=== PATIENT | male | born 1950 | race Caucasian/White ===

== ENCOUNTER → 2018-06-24 12:34 | Outpatient (CLI) | payer SELFPAY ==
--- NOTE | 2018-06-24 12:39 | CT_ITS ---
STUDY: CT CHEST WITHOUT CONTRAST REASON FOR EXAM: Male, 68 years old. Hypercholesterolemia. Calcium scoring examination over read. RADIATION DOSAGE (If Supplied By Facility): CTDIvol = ( 12.19 ) mGy, DLP = ( 511.97 ) mGycm TECHNIQUE: Transaxial imaging was performed without the administration of intravenous contrast material. Individualized dose optimization techniques were used for this CT. COMPARISON: None. FINDINGS: Focal area of increased markings in the lateral aspect of the left lower lobe with focal calcification. This most likely represents fibrocalcific scarring. There is no demonstrated pleural abnormality. There are calcifications of the coronary arteries. There are multiple small lymph nodes within the mediastinum, which are normal in size and morphology most compatible with reactive lymph hyperplasia. Calcified subcarinal and right hilar lymph nodes. Normal unenhanced pulmonary arteries. Normal aorta arch and descending thoracic aorta. Normal osseous structures. Moderate sized hiatal hernia. A filter is seen within the inferior vena cava. Cholelithiasis. Hyperplasia of the adrenal glands. CT/Limited Chest CT w/CCTA IMPRESSION: Coronary artery calcification. Findings suggestive of scarring in the lateral aspect of the left lower lobe. Electronically Signed: Khang Patel MD at 9:50 EST Tel [phone], Service support ,
[2018-06-24 12:59] VITALS: BP 124/64; PULSE 65; RESP 18; O2SAT 988; BMI 26.8
[2018-06-24 13:20] VITALS: PULSE 75
[2018-06-24] MEDS: Metoprolol Tartrate 5 MG/5 ML Vial IV (13:20)
[2018-06-24 13:25] VITALS: PULSE 69; RESP 18; O2SAT 99
[2018-06-24 13:51] VITALS: BP 124/64; PULSE 65; RESP 18; O2SAT 95
--- NOTE | 2018-06-25 06:43 | CA.SCORE ---
Calcium Scoring Date of Study:: 06/24/18 Coronary Calcium Scoring: Coronary calcium scoring. High-resolution computed tomographic imaging of the chest was performed on 06/24/2018 with particular attention paid to the coronary arteries. Images from the examination were analyzed for the presence and extent of coronary artery calcification, using the coronary calcification quantification software. The patient tolerated the procedure well and there were no complications. The results of the coronary calcification analysis are provided below. Coronary calcium score. Left main score 214. Left anterior descending artery score 291. Left circumflex artery score 0. Right coronary artery score 1932. Total Agagston score 2437. The above percentile ranking is greater than 90% of people of the same gender and similar age. The above is suggestive of extensive plaque burden and a high likelihood of at least one coronary artery of the more than 50% stenosis.
== END ==
PROVIDERS: Family Provider Internal Medicine; PCP Internal Medicine; Referring Provider Internal Medicine; Visit Provider Internal Medicine
DX: E78.00 Pure hypercholesterolemia, unspecified (principal)
CPT/HCPCS: 75571; 76380

== ENCOUNTER → 2018-07-29 06:44 | Outpatient (CLI) | payer BC, SELFPAY ==
[2018-07-08 08:38] VITALS: BMI 27.6
--- NOTE | 2018-07-29 06:46 | ECHOD_ITS ---
Reason For Study: CAD Procedure This was a 2D Doppler, Color Flow transthoracic echocardiogram. Exam performed in department. Left Ventricle Normal LV size. Left ventricular systolic function is normal. The estimated ejection fraction is 60 %. Stage 1 diastolic dysfunction. No regional wall motion abnormalities noted. Right Ventricle Normal RV size. Normal systolic function. Atria Normal left atrium. Normal right atrium. Mitral Valve Normal mitral valve. Tricuspid Valve Normal tricuspid valve. Mild tricuspid valve insufficiency. Pulmonary artery systolic pressure is 27 mmHg. Aortic Valve Normal aortic valve. Trisinus/trileaflet aortic valve. Pulmonic Valve Normal pulmonic valve. Great Vessels Normal aortic root. The pulmonary artery is normal size. Normal inferior vena cava. Pericardium/Pleural No pericardial effusion. MMode/2D Measurements & Calculations LVIDd: 4.5 cm IVSd: 1.1 cm LVOT diam: 2.4 cm LVIDs: 2.9 cm LVPWd: 1.1 cm LVOT area: 4.6 cm2 RVDd: 3.9 cm FS: 36.2 % Ao root diam: 3.8 cm LAV(MOD-bp): 57.8 ml EDV(MOD-sp4): 105.5 ml LAV(MOD-bp) Indexed: 27.0 ml/m2 ESV(MOD-sp4): 46.1 ml LAV(MOD-sp2): 39.9 ml EF(MOD-sp4): 56.3 % LAV(MOD-sp4): 74.6 ml EDV(MOD-sp2): 92.3 ml SV(MOD-sp4): 59.4 ml SV(MOD-sp2): 46.2 ml EF(MOD-sp2): 50.1 % LA A4 area: 23.2 cm2 LA dimension(2D): 4.3 cm RA A4 area: 19.6 cm2 Doppler Measurements & Calculations MV E max yg: 64.7 cm/sec Lat Peak E' Yg: 7.6 cm/sec Med Peak E' Yg: 5.6 cm/sec MV A max yg: 97.0 cm/sec E/E' lat: 8.6 E/E' med: 11.6 MV E/A: 0.67 Ao V2 max: 152.5 cm/sec LV V1 max: 113.4 cm/sec PA V2 max: 121.2 cm/sec Ao max P.3 mmHg LV V1 max P.1 mmHg MEHNAZ(V,D): 3.4 cm2 TR max yg: 242.5 cm/sec TR max P.5 mmHg Interpretation Summary Normal LV size. Left ventricular systolic function is normal. The estimated ejection fraction is 60 %. Stage 1 diastolic dysfunction. Mild tricuspid valve insufficiency. Ordering Physician: Rinku Mast Referring Physician: Radha Jolley D.O. Performed By: Funmilayo Farfan RDCS
--- NOTE | 2018-07-29 09:17 | STRESSREP ---
Stress Test Report Exercise myocardial perfusion stress test. 68-year-old man with a history of hypertension and previous pulmonary embolism. Medications: Lipitor, Toprol, amoxicillin, rivaroxaban. Stress protocol: Resting EKG demonstrates normal sinus rhythm with a rate of 70 bpm T wave inversions noted in lead III. Resting blood pressure 150/80 mmHg. The patient exercised according to regular [facility] protocol for a total duration of 6 minutes. The maximum heart rate attained was 153 bpm which was 102% of the maximum predicted heart rate the maximum workload was 7 metabolic equivalents. At rest there were T wave inversions noted in lead III. At peak exercise upsloping ST changes only were noted with normally the criteria for ischemia. The resting blood pressure was 146/68 peak blood pressure 158/62 rate pressure product was 22,700. No clinical angina was noted the patient was short of breath the test was terminated due to the same. Myocardial perfusion protocol. 14.1 mCi of technetium 99m sestamibi was injected at rest. The patient exercised according to regular [facility] protocol for 6 minutes at peak exercise 44.7 mCi of technetium 99m sestamibi was injected stress images were obtained stress and rest images were reconstructed and compared in the short axis vertical long horizontal long axis. Gated images were also obtained next Perfusion SPECT analysis: Review of the stress images demonstrate normal uptake of tracer noted in all areas of the myocardium. The resting images similarly demonstrate normal uptake of tracer noted in all areas of the myocardium. No areas of reversibility are noted suggest ischemia no previous infarct is noted. Gated SPECT analysis: The gated ejection fraction is noted to be 64%. Conclusion: Normal exercise myocardial perfusion stress test at a moderate workload. Preserved ejection fraction.
== END ==
PROVIDERS: Family Provider Internal Medicine; PCP Internal Medicine; Referring Provider Internal Medicine Cardiovascular Disease; Visit Provider Internal Medicine Cardiovascular Disease
DX: I25.10 Atherosclerotic heart disease of native coronary artery without angina pectoris (principal); I10 Essential (primary) hypertension; R93.1 Abnormal findings on diagnostic imaging of heart and coronary circulation
CPT/HCPCS: 78452; 93017; 93306; A9500; A4216

== ENCOUNTER 2018-08-07 08:26 | Day surgery (SDC) | payer BC, SELFPAY ==
[2018-07-08 08:38] VITALS: BMI 27.6
[2018-08-04 14:44] VITALS: BMI 27.6
--- NOTE | 2018-08-04 15:15 | RAD_ITS ---
STUDY: CT CHEST WITHOUT CONTRAST REASON FOR EXAM: Male, 68 years old. Hypercholesterolemia. Calcium scoring examination over read. RADIATION DOSAGE (If Supplied By Facility): CTDIvol = ( 12.19 ) mGy, DLP = ( 511.97 ) mGycm TECHNIQUE: Transaxial imaging was performed without the administration of intravenous contrast material. Individualized dose optimization techniques were used for this CT. COMPARISON: None. FINDINGS: Focal area of increased markings in the lateral aspect of the left lower lobe with focal calcification. This most likely represents fibrocalcific scarring. There is no demonstrated pleural abnormality. There are calcifications of the coronary arteries. There are multiple small lymph nodes within the mediastinum, which are normal in size and morphology most compatible with reactive lymph hyperplasia. Calcified subcarinal and right hilar lymph nodes. Normal unenhanced pulmonary arteries. Normal aorta arch and descending thoracic aorta. Normal osseous structures. Moderate sized hiatal hernia. A filter is seen within the inferior vena cava. Cholelithiasis. Hyperplasia of the adrenal glands. RAD/Chest PA and Lateral IMPRESSION: Coronary artery calcification. Findings suggestive of scarring in the lateral aspect of the left lower lobe. Electronically Signed: Khang Patel MD at 9:50 EST Tel [phone], Service support ,
[2018-08-04 17:03] LABS: Absolute Lymphocyte Count 1.73 X10^3/ul (0.83-4.51); Absolute Neutrophil Count 6.2 X10^3/uL (2.0-7.7); Basophil# 0.02 X10^3/uL; Basophil% 0.2 % (0-1); Eosinophil# 0.06 X10^3/uL; Eosinophils% 0.7 % (0-5); Hematocrit 44.1 % (40-54); Hemoglobin 14.7 g/dl (13.0-16.5); Lymphocyte # 1.73 X10^3/ul (4.0); Lymphocyte % 19.8 % (19-41); Mean Corp Hgb Conc 33.3 g/gl (32-36); Mean Corpuscular Hgb 30.2 pg (27.0-32.0); Mean Corpuscular Volume 90.6 fL (80-94); Mean Platelet Vol. 10.5 fl (6.2-12.0); Monocyte# 0.67 X10^3/uL; Monocyte% 7.7 % (0-10); Neutrophil # 6.23 X10^3/uL (2.7-7.7); Neutrophil % 71.1 % (47-70); Platelet Count 247 K/mm3 (150-450); RBC Distribution Width CV 12.9 % (11.6-14.6); RBC Distribution Width SD 42.3 fl (35.1-43.9); Red Blood Count 4.87 M/mm3 (4.6-6.2); White Blood Count 8.8 K/mm3 (4.4-11.0)
[2018-08-04 17:04] LABS: POSITIVE COUNT NO; POSITIVE DIFFERENTIAL NO; POSITIVE MORPHOLOGY NO
[2018-08-04 17:31] LABS: International Normalized Ratio 1.2; Prothrombin Time (Protime)PT. 14.9 SECONDS (11.7-14.9)
[2018-08-04 17:32] LABS: Partial Thromboplast Time 29.2 Seconds (24.1-36.2)
[2018-08-04 17:39] LABS: Anion Gap 9 (5-15); BUN 16 mg/dL (7-18); BUN/Creat Ratio 21.3 RATIO (10-20); Chloride 104 mmol/L (98-107); Creatinine, Serum 0.75 mg/dL (0.70-1.30); EST Glomerular Filtration Rate 109 mL/min (>60); Est Glom Filt Rate - Afr Amer 132 mL/min (>60); Glucose 87 mg/dL (74-106); Potassium 4.2 mmol/L (3.5-5.1); Sodium Level 138 mmol/L (136-145)
[2018-08-06 08:11] VITALS: BMI 27.6
--- NOTE | 2018-08-07 09:52 | CL.D_ITS ---
Patient Name: CYNTHIA ANN Study Date: 08/07/2018 Performing: Rinku Mast MD Ht: 72.04 inches 183 cm : 1950 Wt: 205.03 lbs 93 kg Age: 68 Gender: male BSA: 2.15 PROCEDURE(S) PERFORMED [id number]-YRQ/COR/LV CLINICAL PROFILE AND INDICATIONS Indications: Suspected CAD Heart Failure: None Stress/Imaging Coronary Calcium Score: Yes Calcium Score: 2000Calcium Score: 2000 CAD Presentations: No Sxs, no angina. CONCLUSIONS Non obstructive coronary arteries RECOMMENDATIONS ASA Indefinitely Medical therapy DESCRIPTION OF PROCEDURE The patient arrived to the procedure lab. The risks and benefits of the procedure as well as a full d escription of our services here and current unavailability of surgical backup were fully explained to the patient and/or their significant other prior to the catheterization. The Timeout was completed, verifying the correct patient and procedure. The patient's procedural site was prepped and draped in the usual fashion. Local anesthetic was given subcutaneously to right radial region with Lidocaine 2% . Using a modified Seldinger technique, arterial access was obtained via the right radial artery, a 6 Fr sheath was inserted. Right Coronary Artery selective angiography was then performed in multiple v iews using a 5 Fr. 4.0 Warner catheter. Left Ventriculography was performed in JAY projection using a 5 Fr. Pigtail catheter. LV to AO pullback pressures were then recorded.The arterial sheath was pulled and a TR Band was applied for hemostasis CORONARY ANGIOGRAPHY DOMINANCE: Right Dominant LEFT HEART ASSESSMENT Left Ventricular Ejection Fraction: by LV Gram 60 % Normal LV wall motion Normal Left Ventricular systolic function LEFT MAIN: Angiographically normal LEFT ANTERIOR DECENDING ARTERY: MID LAD: Moderate luminal irregularities up to 50% CIRCUMFLEX ARTERY: Angiographically normal RIGHT CORONARY ARTERY: Mild luminal irregularities less than 30% COMPLICATIONS No Complications PROCEDURE MEDICATIONS Fentanyl 50 mcg IV Versed 1 mg IV Versed 1 mg IV Oxygen: 2 L/min via nasal cannula Heparin diluted in 23cc Heparinized saline. Patient given 10cc IA of this solution. 08/07/2018 09:28: 38 Verapamil 2.5mg, Ntg 100mcgs, 2000 units of Heparin diluted in 23cc Heparinized saline. Patient give n 10cc IA of this solution. 08/07/2018 09:28:38 SUMMARY OF HEMODYNAMIC DATA Time AIR REST ECG 08:44:46 AO 114/62 (86) SA 09:29:55 LV 128/2, 10 09:36:22 LV 132/1, 12 09:36:29 LV 127/5, 12 09:37:41 LV 137/6, 15 09:37:48 LVp 129/6, 16 09:37:52 AOp 128/65 (93) 09:37:57 Signed By Rinku Mast MD On 08/07/2018 09:51:31 Rinku Mast MD
--- OUTSIDE RECORDS SUMMARY | 2018-10-11 15:20 | XMS RPT_ITS | Continuity of Care Document ---
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 mm[Hg] Comments: Patient Position: Sitting; Cuff Location: Left Arm; Cuff Size: Standard Weight 195 lb Height 71.25 in Body Mass Index Calculated 27.01 kg/m2 Body Surface Area Calculated 2.09 m2 :15 Temperature 98.9 f Comments: Method: Oral Pulse 77 /min Comments: Pattern: Regular Respiration Rate 16 /min Comments: Pattern: Unlabored O2 SAT 99 % Comments: Room air BP Systolic 146 mm[Hg] Comments: Patient Position: Sitting; Cuff Location: Left Arm; Cuff Size: Standard BP Diastolic 80 mm[Hg] Comments: Patient Position: Sitting; Cuff Location: Left Arm; Cuff Size: Standard Weight 189 lb Height 71.25 in Body Mass Index Calculated 26.18 kg/m2 Body Surface Area Calculated 2.06 m2 :17 Temperature 97.9 f Pulse 64 /min Comments: Pattern: Regular Respiration Rate 16 /min Comments: Pattern: Unlabored BP Systolic 136 mm[Hg] Comments: Patient Position: Sitting; Cuff Location: Left Arm; Cuff Size: Large BP Diastolic 82 mm[Hg] Comments: Patient Position: Sitting; Cuff Location: Left Arm; Cuff Size: Large Weight 189 lb Height 71.25 in Body Mass Index Calculated 26.18 kg/m2 Body Surface Area Calculated 2.06 m2 :21 Pulse 76 /min Comments: Pattern: Regular Respiration Rate 16 /min Comments: Pattern: Unlabored BP Systolic 138 mm[Hg] Comments: Patient Position: Sitting; Cuff Location: Left Arm; Cuff Size: Large BP Diastolic 66 mm[Hg] Comments: Patient Position: Sitting; Cuff Location: Left Arm; Cuff Size: Large Weight 191 lb Height 71.25 in Body Mass Index Calculated 26.45 kg/m2 Body Surface Area Calculated 2.07 m2 :25 Temperature 98.4 f Pulse 70 /min Comments: Pattern: Regular Respiration Rate 16 /min Comments: Pattern: Unlabored BP Systolic 146 mm[Hg] Comments: Patient Position: Sitting; Cuff Location: Left Arm; Cuff Size: Standard BP Diastolic 82 mm[Hg] Comments: Patient Position: Sitting; Cuff Location: Left Arm; Cuff Size: Standard Weight 195 lb Height 71.25 in Body Mass Index Calculated 27.01 kg/m2 Body Surface Area Calculated 2.09 m2 :20 Temperature 98.2 f Comments: Method: Oral Pulse 60 /min Comments: Pattern: Regular Respiration Rate 16 /min Comments: Pattern: Unlabored BP Systolic 130 mm[Hg] Comments: Patient Position: Sitting; Cuff Location: Left Arm; Cuff Size: Standard BP Diastolic 80 mm[Hg] Comments: Patient Position: Sitting; Cuff Location: Left Arm; Cuff Size: Standard Weight 201 lb Height 71.25 in Body Mass Index Calculated 27.84 kg/m2 Body Surface Area Calculated 2.12 m2 :44 Temperature 98.4 f Pulse 76 /min Comments: Pattern: Regular Respiration Rate 16 /min Comments: Pattern: Unlabored BP Systolic 120 mm[Hg] Comments: Patient Position: Sitting; Cuff Location: Left Arm; Cuff Size: Large BP Diastolic 78 mm[Hg] Comments: Patient Position: Sitting; Cuff Location: Left Arm; Cuff Size: Large Weight 201 lb Height 71.25 in Body Mass Index Calculated 27.84 kg/m2 Body Surface Area Calculated 2.12 m2 :59 Pulse 68 /min Comments: Pattern: Regular Respiration Rate 16 /min Comments: Pattern: Unlabored Weight 207 lb Height 71.25 in Body Mass Index Calculated 28.67 kg/m2 Body Surface Area Calculated 2.15 m2 :01 Temperature 98.1 f Pulse 68 /min Comments: Pattern: Regular Respiration Rate 16 /min Comments: Pattern: Unlabored BP Systolic 126 mm[Hg] Comments: Patient Position: Sitting; Cuff Location: Left Arm; Cuff Size: Large BP Diastolic 80 mm[Hg] Comments: Patient Position: Sitting; Cuff Location: Left Arm; Cuff Size: Large Weight 207 lb Height 71.25 in Body Mass Index Calculated 28.67 kg/m2 Body Surface Area Calculated 2.15 m2 :59 Temperature 97.5 f Comments: Method: Oral Pulse 72 /min Comments: Pattern: Regular Respiration Rate 16 /min Comments: Pattern: Unlabored BP Systolic 140 mm[Hg] Comments: Patient Position: Sitting; Cuff Location: Left Arm; Cuff Size: Standard BP Diastolic 78 mm[Hg] Comments: Patient Position: Sitting; Cuff Location: Left Arm; Cuff Size: Standard Weight 205 lb Height 71.25 in Body Mass Index Calculated 28.39 kg/m2 Body Surface Area Calculated 2.14 m2 :05 Temperature 97.4 f Pulse 76 /min Comments: Pattern: Regular Respiration Rate 16 /min Comments: Pattern: Unlabored BP Systolic 146 mm[Hg] Comments: Patient Position: Sitting; Cuff Location: Left Arm; Cuff Size: Large BP Diastolic 84 mm[Hg] Comments: Patient Position: Sitting; Cuff Location: Left Arm; Cuff Size: Large Weight 205 lb Height 71.25 in Body Mass Index Calculated 28.39 kg/m2 Body Surface Area Calculated 2.14 m2 :46 Temperature 97.9 f Comments: Method: Oral Pulse 70 /min Comments: Pattern: Regular Respiration Rate 16 /min Comments: Pattern: Unlabored BP Systolic 132 mm[Hg] Comments: Patient Position: Sitting; Cuff Location: Left Arm; Cuff Size: Standard BP Diastolic 74 mm[Hg] Comments: Patient Position: Sitting; Cuff Location: Left Arm; Cuff Size: Standard Weight 199 lb :58 Temperature 97.8 f Comments: Method: Oral Pulse 64 /min Comments: Pattern: Regular Respiration Rate 18 /min Comments: Pattern: Unlabored BP Systolic 120 mm[Hg] Comments: Patient Position: Sitting; Cuff Location: Left Arm; Cuff Size: Standard BP Diastolic 70 mm[Hg] Comments: Patient Position: Sitting; Cuff Location: Left Arm; Cuff Size: Standard Weight 199 lb :14 Temperature 97.9 f Comments: Method: Oral Pulse 72 /min Comments: Pattern: Regular Respiration Rate 16 /min Comments: Pattern: Unlabored BP Systolic 144 mm[Hg] Comments: Patient Position: Sitting; Cuff Location: Left Arm; Cuff Size: Large BP Diastolic 82 mm[Hg] Comments: Patient Position: Sitting; Cuff Location: Left Arm; Cuff Size: Large Weight 204 lb :09 Temperature 98.5 f Comments: Method: Undefined Pulse 72 /min Comments: Pattern: Regular Respiration Rate 16 /min Comments: Pattern: Undefined BP Systolic 132 mm[Hg] Comments: Patient Position: Sitting; Cuff Location: Left Arm; Cuff Size: Large BP Diastolic 74 mm[Hg] Comments: Patient Position: Sitting; Cuff Location: Left Arm; Cuff Size: Large Weight 202 lb Height 0 in Head Circumference 0.00 cm :34 Pulse 72 /min Comments: Pattern: Regular Respiration Rate 16 /min Comments: Pattern: Unlabored BP Systolic 142 mm[Hg] Comments: Patient Position: Sitting; Cuff Location: Left Arm; Cuff Size: Standard BP Diastolic 82 mm[Hg] Comments: Patient Position: Sitting; Cuff Location: Left Arm; Cuff Size: Standard Weight 203 lb Height 71.75 in Body Mass Index Calculated 27.72 kg/m2 Body Surface Area Calculated 2.14 m2 Head Circumference 0.00 cm :00 Temperature 97.2 f Comments: Method: Oral Pulse 74 /min Comments: Pattern: Regular Respiration Rate 16 /min Comments: Pattern: Unlabored Weight 203 lb Height 71.75 in Body Mass Index Calculated 27.72 kg/m2 Body Surface Area Calculated 2.14 m2 Head Circumference 0.00 cm :43 Pulse 62 /min Comments: Pattern: Regular Respiration Rate 16 /min Comments: Pattern: Undefined BP Systolic 162 mm[Hg] Comments: Patient Position: Sitting; Cuff Location: Left Arm; Cuff Size: Standard BP Diastolic 98 mm[Hg] Comments: Patient Position: Sitting; Cuff Location: Left Arm; Cuff Size: Standard Weight 0 lb Height 0 in Head Circumference 0.00 cm :35 Temperature 97.3 f Comments: Method: Oral Pulse 72 /min Comments: Pattern: Regular Respiration Rate 16 /min Comments: Pattern: Unlabored BP Systolic 132 mm[Hg] Comments: Patient Position: Sitting; Cuff Location: Left Arm; Cuff Size: Large BP Diastolic 82 mm[Hg] Comments: Patient Position: Sitting; Cuff Location: Left Arm; Cuff Size: Large Weight 0 lb Height 0 in Head Circumference 0.00 cm :22 Temperature 99 f Comments: Method: Undefined Pulse 80 /min Comments: Pattern: Regular Respiration Rate 16 /min Comments: Pattern: Undefined BP Systolic 152 mm[Hg] Comments: Patient Position: Sitting; Cuff Location: Left Arm; Cuff Size: Large BP Diastolic 88 mm[Hg] Comments: Patient Position: Sitting; Cuff Location: Left Arm; Cuff Size: Large Weight 203 lb Height 71.75 in Body Mass Index Calculated 27.72 kg/m2 Body Surface Area Calculated 2.14 m2 Head Circumference 0.00 cm :37 Temperature 97.2 f Comments: Method: Oral Pulse 72 /min Comments: Pattern: Regular Respiration Rate 18 /min Comments: Pattern: Unlabored BP Systolic 138 mm[Hg] Comments: Patient Position: Sitting; Cuff Location: Left Arm; Cuff Size: Standard BP Diastolic 82 mm[Hg] Comments: Patient Position: Sitting; Cuff Location: Left Arm; Cuff Size: Standard Weight 206 lb Height 0 in Head Circumference 0.00 cm :48 Pulse 68 /min Comments: Pattern: Regular Respiration Rate 18 /min Comments: Pattern: Unlabored BP Systolic 148 mm[Hg] Comments: Patient Position: Sitting; Cuff Location: Left Arm; Cuff Size: Standard BP Diastolic 90 mm[Hg] Comments: Patient Position: Sitting; Cuff Location: Left Arm; Cuff Size: Standard Weight 0 lb Height 0 in Head Circumference 0.00 cm :02 Pulse 72 /min Comments: Pattern: Regular Respiration Rate 16 /min Comments: Pattern: Unlabored BP Systolic 144 mm[Hg] Comments: Patient Position: Sitting; Cuff Location: Right Arm; Cuff Size: Standard BP Diastolic 98 mm[Hg] Comments: Patient Position: Sitting; Cuff Location: Right Arm; Cuff Size: Standard Weight 0 lb Height 0 in Head Circumference 0.00 cm :03 Temperature 97.5 f Comments: Method: Undefined Pulse 72 /min Comments: Pattern: Regular Respiration Rate 16 /min Comments: Pattern: Undefined BP Systolic 138 mm[Hg] Comments: Patient Position: Sitting; Cuff Location: Left Arm; Cuff Size: Large BP Diastolic 82 mm[Hg] Comments: Patient Position: Sitting; Cuff Location: Left Arm; Cuff Size: Large Weight 0 lb Height 0 in Head Circumference 0.00 cm :39 Temperature 96.8 f Comments: Method: Undefined Pulse 68 /min Comments: Pattern: Regular Respiration Rate 16 /min Comments: Pattern: Undefined BP Systolic 144 mm[Hg] Comments: Patient Position: Sitting; Cuff Location: Right Arm; Cuff Size: Standard BP Diastolic 86 mm[Hg] Comments: Patient Position: Sitting; Cuff Location: Right Arm; Cuff Size: Standard Weight 0 lb Height 0 in Head Circumference 0.00 cm :48 Pulse 68 /min Comments: Pattern: Regular BP Systolic 132 mm[Hg] Comments: Patient Position: Sitting; Cuff Location: Left Arm; Cuff Size: Standard BP Diastolic 80 mm[Hg] Comments: Patient Position: Sitting; Cuff Location: Left Arm; Cuff Size: Standard Weight 206 lb Height 0 in Head Circumference 0.00 cm :16 Pulse 66 /min Comments: Pattern: Regular Respiration Rate 17 /min Comments: Pattern: Unlabored BP Systolic 130 mm[Hg] Comments: Patient Position: Sitting; Cuff Location: Left Arm; Cuff Size: Standard BP Diastolic 80 mm[Hg] Comments: Patient Position: Sitting; Cuff Location: Left Arm; Cuff Size: Standard Weight 206 lb Height 0 in Head Circumference 0.00 cm :45 Pulse 64 /min Comments: Pattern: Regular Respiration Rate 18 /min Comments: Pattern: Unlabored BP Systolic 132 mm[Hg] Comments: Patient Position: Sitting; Cuff Location: Left Arm; Cuff Size: Standard BP Diastolic 84 mm[Hg] Comments: Patient Position: Sitting; Cuff Location: Left Arm; Cuff Size: Standard Weight 0 lb Height 0 in Head Circumference 0.00 cm :55 Temperature 98.3 f Comments: Method: Undefined Pulse 76 /min Comments: Pattern: Regular Respiration Rate 16 /min Comments: Pattern: Undefined BP Systolic 140 mm[Hg] Comments: Patient Position: Standing; Cuff Location: Right Arm; Cuff Size: Large BP Diastolic 82 mm[Hg] Comments: Patient Position: Standing; Cuff Location: Right Arm; Cuff Size: Large Weight 206 lb Height 0 in Head Circumference 0.00 cm :12 Temperature 97.1 f Comments: Method: Undefined Pulse 100 /min Comments: Pattern: Regular Respiration Rate 16 /min Comments: Pattern: Undefined BP Systolic 130 mm[Hg] Comments: Patient Position: Sitting; Cuff Location: Right Arm; Cuff Size: Standard BP Diastolic 80 mm[Hg] Comments: Patient Position: Sitting; Cuff Location: Right Arm; Cuff Size: Standard Weight 216 lb Height 70 in Body Mass Index Calculated 30.99 kg/m2 Body Surface Area Calculated 2.16 m2 Head Circumference 0.00 cm :29 Temperature 98.2 f Comments: Method: Oral Pulse 72 /min Comments: Pattern: Regular Respiration Rate 16 /min Comments: Pattern: Unlabored BP Systolic 140 mm[Hg] Comments: Patient Position: Sitting; Cuff Location: Right Arm; Cuff Size: Standard BP Diastolic 84 mm[Hg] Comments: Patient Position: Sitting; Cuff Location: Right Arm; Cuff Size: Standard Weight 209 lb Height 70 in Body Mass Index Calculated 29.99 kg/m2 Body Surface Area Calculated 2.13 m2 Head Circumference 0.00 cm :10 Temperature 97.8 f Comments: Method: Oral Pulse 68 /min Comments: Pattern: Regular Respiration Rate 16 /min Comments: Pattern: Unlabored BP Systolic 146 mm[Hg] Comments: Patient Position: Sitting; Cuff Location: Right Arm; Cuff Size: Standard BP Diastolic 88 mm[Hg] Comments: Patient Position: Sitting; Cuff Location: Right Arm; Cuff Size: Standard Weight 218 lb Height 70 in Body Mass Index Calculated 31.28 kg/m2 Body Surface Area Calculated 2.17 m2 Head Circumference 0.00 cm Results Date Description Value Details :12 Microscopic Examination Comments: PATIENT WAS FASTINGPERFORMED BY: HEIKE [facility]emepq[facility]48 [facility] [id number] Bacteria Few (Normal) Mucus Threads Present (Normal) Crystal Type Amorphous Sediment (Normal) Crystals Present (Abnormal) Epithelial Cells (non renal) None seen {/hpf} (Normal) Range: 0 - 10 RBC 0-2 {/hpf} (Normal) Range: 0 - 2 WBC 0-5 {/hpf} (Normal) Range: 0 - 5 22-May-20189:12 CBC W/AUTO DIFF WBC Comments: PATIENT WAS FASTINGPERFORMED BY: [facility] [id number] [facility] [id number] Information: NURSE DRAW ([id number]) Immature Grans (Abs) 0.0 {x10E3/uL} (Normal) Range: 0.0-0.1 Immature Granulocytes 0 % (Normal) Baso (Absolute) 0.0 {x10E3/uL} (Normal) Range: 0.0-0.2 Eos (Absolute) 0.1 {x10E3/uL} (Normal) Range: 0.0-0.4 Monocytes(Absolute) 1.1 {x10E3/uL} (Abnormal) Range: 0.1-0.9 Lymphs (Absolute) 1.6 {x10E3/uL} (Normal) Range: 0.7-3.1 Neutrophils (Absolute) 5.0 {x10E3/uL} (Normal) Range: 1.4-7.0 Basos 0 % (Normal) Eos 1 % (Normal) Monocytes 14 % (Normal) Lymphs 20 % (Normal) Neutrophils 65 % (Normal) Platelets 285 {x10E3/uL} (Normal) Range: 150-379 RDW 13.9 % (Normal) Range: 12.3-15.4 MCHC 33.1 g/dL (Normal) Range: 31.5-35.7 MCH 29.1 pg (Normal) Range: 26.6-33.0 MCV 88 fL (Normal) Range: 79-97 Hematocrit 44.1 % (Normal) Range: 37.5-51.0 Hemoglobin 14.6 g/dL (Normal) Range: 13.0-17.7 RBC 5.01 {x10E6/uL} (Normal) Range: 4.14-5.80 WBC 7.8 {x10E3/uL} (Normal) Range: 3.4-10.8 :12 URINALYSIS, W/ MICRO ([id number]) Comments: PATIENT WAS FASTINGPERFORMED BY: [place] [id number] [facility] [id number] Microscopic Examination See below: (Normal) Comments: Microscopic was indicated and was performed. Microscopic Examination MICRON (Normal) Comments: Microscopic follows if indicated. Nitrite, Urine Negative (Normal) Urobilinogen,Semi-Qn 1.0 mg/dL (Normal) Range: 0.2-1.0 Bilirubin Negative (Normal) Occult Blood Negative (Normal) Ketones Negative (Normal) Glucose Negative (Normal) Protein Negative (Normal) WBC Esterase Negative (Normal) Appearance Clear (Normal) Urine-Color Yellow (Normal) pH 6.0 (Normal) Range: 5.0-7.5 Specific [place] 1.020 (Normal) Range: 1.005-1.030 :12 GGT (GAMMA GLUTAMYLTRANSFERASE) Comments: PATIENT WAS FASTINGPERFORMED BY: [facility]6370 [facility] [id number] ([id number]) GGT 22 [iU]/L (Normal) Range: 0-65 :12 METABOLIC PANEL, COMPREHENSIVE Comments: PATIENT WAS FASTINGPERFORMED BY: [facility]6370 [facility] [id number] ([id number]) ALT (SGPT) 15 [iU]/L (Normal) Range: 0-44 AST (SGOT) 26 [iU]/L (Normal) Range: 0-40 Alkaline Phosphatase 148 [iU]/L (Abnormal) Range: 39-117 Bilirubin, Total 0.8 mg/dL (Normal) Range: 0.0-1.2 A/G Ratio 1.5 (Normal) Range: 1.2-2.2 Globulin, Total 3.1 g/dL (Normal) Range: 1.5-4.5 Albumin 4.5 g/dL (Normal) Range: 3.5-4.8 Protein, Total 7.6 g/dL (Normal) Range: 6.0-8.5 Calcium 9.2 mg/dL (Normal) Range: 8.6-10.2 Carbon Dioxide, Total 22 mmol/L (Normal) Range: 20-29 Chloride 103 mmol/L (Normal) Range: 96-106 Potassium 4.7 mmol/L (Normal) Range: 3.5-5.2 Sodium 141 mmol/L (Normal) Range: 134-144 BUN/Creatinine Ratio 18 (Normal) Range: 10-24 eGFR If Africn Am 102 mL/min/1.73 (Normal) eGFR If NonAfricn Am 88 mL/min/1.73 (Normal) Creatinine 0.85 mg/dL (Normal) Range: 0.76-1.27 BUN 15 mg/dL (Normal) Range: 8-27 Glucose 87 mg/dL (Normal) Range: 65-99 04-Mjk-33072:12 METABOLIC PANEL, COMPREHENSIVE Comments: PATIENT WAS FASTINGPERFORMED BY: [facility] Ghqjpc6397 [facility] [id number]; appt 11/14 ([id number]) ALT (SGPT) 25 [iU]/L (Normal) Range: 0-44 AST (SGOT) 34 [iU]/L (Normal) Range: 0-40 Alkaline Phosphatase 132 [iU]/L (Abnormal) Range: 39-117 Bilirubin, Total 0.8 mg/dL (Normal) Range: 0.0-1.2 A/G Ratio 1.3 (Normal) Range: 1.2-2.2 Globulin, Total 3.2 g/dL (Normal) Range: 1.5-4.5 Albumin 4.2 g/dL (Normal) Range: 3.6-4.8 Protein, Total 7.4 g/dL (Normal) Range: 6.0-8.5 Calcium 9.2 mg/dL (Normal) Range: 8.6-10.2 Carbon Dioxide, Total 26 mmol/L (Normal) Range: 18-29 Chloride 101 mmol/L (Normal) Range: 96-106 Potassium 4.9 mmol/L (Normal) Range: 3.5-5.2 Sodium 141 mmol/L (Normal) Range: 134-144 BUN/Creatinine Ratio 20 (Normal) Range: 10-24 eGFR If Africn Am 101 mL/min/1.73 (Normal) eGFR If NonAfricn Am 88 mL/min/1.73 (Normal) Creatinine 0.88 mg/dL (Normal) Range: 0.76-1.27 BUN 18 mg/dL (Normal) Range: 8-27 Glucose 79 mg/dL (Normal) Range: 65-99 :12 CBC W/AUTO DIFF WBC ([id number]) Comments: PATIENT WAS FASTINGPERFORMED BY: [employer] [facility] [id number] Immature Grans (Abs) 0.0 {x10E3/uL} (Normal) Range: 0.0-0.1 Immature Granulocytes 0 % (Normal) Baso (Absolute) 0.0 {x10E3/uL} (Normal) Range: 0.0-0.2 Eos (Absolute) 0.1 {x10E3/uL} (Normal) Range: 0.0-0.4 Monocytes(Absolute) 0.6 {x10E3/uL} (Normal) Range: 0.1-0.9 Lymphs (Absolute) 1.7 {x10E3/uL} (Normal) Range: 0.7-3.1 Neutrophils (Absolute) 3.7 {x10E3/uL} (Normal) Range: 1.4-7.0 Basos 0 % (Normal) Eos 2 % (Normal) Monocytes 10 % (Normal) Lymphs 28 % (Normal) Neutrophils 60 % (Normal) Platelets 275 {x10E3/uL} (Normal) Range: 150-379 RDW 13.4 % (Normal) Range: 12.3-15.4 MCHC 33.0 g/dL (Normal) Range: 31.5-35.7 MCH 29.1 pg (Normal) Range: 26.6-33.0 MCV 88 fL (Normal) Range: 79-97 Hematocrit 43.3 % (Normal) Range: 37.5-51.0 Hemoglobin 14.3 g/dL (Normal) Range: 13.0-17.7 RBC 4.91 {x10E6/uL} (Normal) Range: 4.14-5.80 WBC 6.2 {x10E3/uL} (Normal) Range: 3.4-10.8 :12 Vitamin D Hydroxy ([id number]) Comments: PATIENT WAS FASTINGPERFORMED BY: iiyuma Thshfd4512 [facility] [facility] [id number] Vitamin D, 25-Hydroxy 60.9 ng/mL (Normal) Range: 30.0-100.0 Comments: Vitamin D deficiency has been defined by the [place] of[place] and an Endocrine Society practice guideline as alevel of serum 25-OH vitamin D less than 20 ng/mL (1,2).The Endocrine Society went on to further define vitamin Dinsufficiency as a level between 21 and 29 ng/mL (2).1. IOM ([place] of [employer]). 2010. Dietary reference intakes for calcium and D. [place]: The National Academies Press.2. Annette MF, Corona DEGROOT, Eddie ASIF, et al. Evaluation, treatment, and prevention of vitamin D deficiency: an Endocrine Society clinical practice guideline. JCEM. 2010; 96(7):1911-30. 03-Dan-36027:12 LIPID PANEL (42325) Comments: PATIENT WAS FASTINGPERFORMED BY: CB [facility] Svlbhu1986 [facility] [id number] LDL/HDL Ratio 1.9 {ratio} (Normal) Range: 0.0-3.6 Comments: LDL/HDL Ratio Men Women 1/2 Avg.Risk 1.0 1.5 Av g.Risk 3.6 3.2 2X Avg.Risk 6.2 5.0 3X Avg.Risk 8.0 6.1 LDL Cholesterol Calc 83 mg/dL (Normal) Range: 0-99 VLDL Cholesterol Lisa 15 mg/dL (Normal) Range: 5-40 HDL Cholesterol 44 mg/dL (Normal) Triglycerides 75 mg/dL (Normal) Range: 0-149 Cholesterol, Total 142 mg/dL (Normal) Range: 100-199 52-Lxd-906423:15 TESTOSTERONE FREE ([id number]) Comments: PATIENT NOT FASTINGPERFORMED BY: [facility] [id number] [facility] [id number] Free Testosterone(Direct) 15.5 pg/mL (Normal) Range: 6.6-18.1 :54 POTASSIUM SERUM ([id number]) Comments: do stat and call results; Order Date: 06/06/17Order Info: [id number] - [id number]: do stat and [facility] resultsWPike [facility] Knydzzxdwt5864 Nazario Cho. Anh [place], [id number] K 4.7 mmol/L (Normal) Range: 3.5-5.1 :22 CBC with auto diff ([id number]) Comments: PATIENT WAS FASTINGPERFORMED BY: [email or web address]]Kzjomy3618 [facility] [id number] Immature Grans (Abs) 0.0 {x10E3/uL} (Normal) Range: 0.0-0.1 Immature Granulocytes 0 % (Normal) Baso (Absolute) 0.0 {x10E3/uL} (Normal) Range: 0.0-0.2 Eos (Absolute) 0.2 {x10E3/uL} (Normal) Range: 0.0-0.4 Monocytes(Absolute) 0.8 {x10E3/uL} (Normal) Range: 0.1-0.9 Lymphs (Absolute) 1.8 {x10E3/uL} (Normal) Range: 0.7-3.1 Neutrophils (Absolute) 4.4 {x10E3/uL} (Normal) Range: 1.4-7.0 Basos 0 % (Normal) Eos 2 % (Normal) Monocytes 11 % (Normal) Lymphs 25 % (Normal) Neutrophils 62 % (Normal) Platelets 287 {x10E3/uL} (Normal) Range: 150-379 RDW 13.3 % (Normal) Range: 12.3-15.4 MCHC 33.0 g/dL (Normal) Range: 31.5-35.7 MCH 29.6 pg (Normal) Range: 26.6-33.0 MCV 90 fL (Normal) Range: 79-97 Hematocrit 43.9 % (Normal) Range: 37.5-51.0 Hemoglobin 14.5 g/dL (Normal) Range: 12.6-17.7 RBC 4.90 {x10E6/uL} (Normal) Range: 4.14-5.80 WBC 7.2 {x10E3/uL} (Normal) Range: 3.4-10.8 :22 METABOLIC PANEL, COMPREHENSIVE Comments: PATIENT WAS FASTINGPERFORMED BY: [facility]6370 [facility] [id number] ([id number]) ALT (SGPT) 20 [iU]/L (Normal) Range: 0-44 AST (SGOT) 29 [iU]/L (Normal) Range: 0-40 Alkaline Phosphatase, S 125 [iU]/L (Abnormal) Range: 39-117 Bilirubin, Total 0.7 mg/dL (Normal) Range: 0.0-1.2 A/G Ratio 1.3 (Normal) Range: 1.2-2.2 Globulin, Total 3.5 g/dL (Normal) Range: 1.5-4.5 Albumin, Serum 4.4 g/dL (Normal) Range: 3.6-4.8 Protein, Total, Serum 7.9 g/dL (Normal) Range: 6.0-8.5 Calcium, Serum 9.3 mg/dL (Normal) Range: 8.6-10.2 Carbon Dioxide, Total 25 mmol/L (Normal) Range: 18-29 Chloride, Serum 102 mmol/L (Normal) Range: 96-106 Potassium, Serum 5.8 mmol/L (Abnormal) Range: 3.5-5.2 Comments: Client Requested Flag Sodium, Serum 143 mmol/L (Normal) Range: 134-144 BUN/Creatinine Ratio 22 (Normal) Range: 10-24 eGFR If Africn Am 107 mL/min/1.73 (Normal) eGFR If NonAfricn Am 93 mL/min/1.73 (Normal) Creatinine, Serum 0.77 mg/dL (Normal) Range: 0.76-1.27 BUN 17 mg/dL (Normal) Range: 8-27 Glucose, Serum 91 mg/dL (Normal) Range: 65-99 81-Pvj-50184:22 PSA (PROSTATE SPECIFIC Comments: PATIENT WAS FASTINGPERFORMED BY: [facility]6370 [facility] [id number] ANTIGEN) (V76.44) Prostate Specific Ag, 1.1 ng/mL (Normal) Range: 0.0-4.0 Serum Comments: achvr ECLIA methodology. .According to the [place] [employer], Serum PSA shoulddecrease and remain at undetectable levels after radicalprostatectomy. The AUA defines biochemical recurrence as an initialPSA value 0.2 ng/mL or greater followed by a subsequent confirmatoryPSA value 0.2 ng/mL or greater.Values obtained with d ifferent assay methods or kits cannot be usedinterchangeably. Results cannot be interpreted as absolute evidenceof the presence or absence of malignant disease. :13 CBC W/AUTO DIFF WBC Comments: PATIENT WAS FASTINGPERFORMED BY: iiyuma[address] [id number] BY: HEIKE iiyuma [id number] [place] [id number] ([id number]) Immature Grans (Abs) 0.0 {x10E3/uL} (Normal) Range: 0.0-0.1 Immature Granulocytes 0 % (Normal) Baso (Absolute) 0.0 {x10E3/uL} (Normal) Range: 0.0-0.2 Eos (Absolute) 0.2 {x10E3/uL} (Normal) Range: 0.0-0.4 Monocytes(Absolute) 0.7 {x10E3/uL} (Normal) Range: 0.1-0.9 Lymphs (Absolute) 1.6 {x10E3/uL} (Normal) Range: 0.7-3.1 Neutrophils (Absolute) 3.9 {x10E3/uL} (Normal) Range: 1.4-7.0 Basos 0 % (Normal) Eos 3 % (Normal) Monocytes 11 % (Normal) Lymphs 25 % (Normal) Neutrophils 61 % (Normal) Platelets 286 {x10E3/uL} (Normal) Range: 150-379 RDW 13.6 % (Normal) Range: 12.3-15.4 MCHC 34.2 g/dL (Normal) Range: 31.5-35.7 MCH 29.7 pg (Normal) Range: 26.6-33.0 MCV 87 fL (Normal) Range: 79-97 Hematocrit 43.6 % (Normal) Range: 37.5-51.0 Hemoglobin 14.9 g/dL (Normal) Range: 12.6-17.7 RBC 5.02 {x10E6/uL} (Normal) Range: 4.14-5.80 WBC 6.4 {x10E3/uL} (Normal) Range: 3.4-10.8 :13 Vitamin D Hydroxy Comments: PATIENT WAS FASTINGPERFORMED BY: iiyuma[address] [id number] BY: [facility]6370 [facility] [id number] ([id number]) Vitamin D, 25-Hydroxy 44.1 ng/mL (Normal) Range: 30.0-100.0 Comments: Vitamin D deficiency has been defined by the [place] [employer] and an Endocrine Society practice guideline as alevel of serum 25-OH vitamin D less than 20 ng/mL (1,2).The Endocrine Society went on to further define vitamin Dinsufficiency as a level between 21 and 29 ng/mL (2).1. IOM ([place] [employer]). 2010. Dietary reference intakes for calcium and D. [place]: The National Academies Press.2. Annette MF, Corona DEGROOT, Eddie ASIF, et al. Evaluation, treatment, and prevention of vitamin D deficiency: an Endocrine Society clinical practice guideline. JCEM. 2010; 96(7):1911-30. :13 LIPOPROTEIN, KULDEEP, BY NMR Comments: PATIENT WAS FASTINGPERFORMED BY: [address] [id number] BY: VMTurboTrinity Health Livingston Hospital6370 [facility] [id number] ([id number]) LP-IR Score <25 (Normal) Comments: INSULIN RESISTANCE MARKER <--Insulin Sensitive Insulin Resistant--> Percentile in Reference PopulationInsulin Resistance ScoreLP-IR Score Low 25th 50th 75th High <27 27 45 63 >63LP-IR Score is inaccurate if patient is non-fasting. .The LP-IR score is a laboratory developed i [facility] that has beenassociated with insulin resistance and diabetes risk and should beused as one component of a physician's clinical assessment. TheLP-IR score listed above has not been cleared by the [place] Food andDrug Administration. LDL Size 21.1 nm (Normal) Comments: INTERPRETATIVE INFORMATION PARTICLE CONCENTRATION AND SIZE <--Lower CVD Risk Highe r CVD Risk--> LDL AND HDL PARTICLES Percentile in Reference Population HDL-P (total) High 75th 50th 25th Low >34.9 34.9 30.5 26.7 <26.7 . Small LDL-P Low 25th 50th 75th High <117 117 527 839 >839 . LDL Size <-Large (Pattern A)-> <-Small (Pattern B)-> 23.0 20.6 20.5 19.0 Small LDL-P and LDL Size are associated with CVD risk, but not afterLDL-P is taken into account. .These assays were developed and their performance characteristicsdetermined by [employer]. These assays have not been cleared by [place] Food and Drug Administration. The clinical utility of theselaboratory values have not been fully established. Small LDL-P 371 nmol/L (Normal) HDL-P (Total) 34.2 umol/L (Normal) Cholesterol, Total 158 mg/dL (Normal) Range: 100-199 Triglycerides 63 mg/dL (Normal) Range: 0-149 HDL-C 52 mg/dL (Normal) LDL-C 93 mg/dL (Normal) Range: 0-99 Comments: . Optimal < 100 Above optimal 100 - 129 Borderline 1 30 - 159 High 160 - 189 Very high > 189 .LDL-C is inaccurate if patient is non-fasting. LDL-P 764 nmol/L (Normal) Comments: Low < 1000 Moderate 1000 - 1299 Borderline-High 1300 - 1599 High 1600 - 2000 Very High > 2000 36-Pvz-71393:13 METABOLIC PANEL, Comments: PATIENT WAS FASTINGPERFORMED BY: BN [facility] Pxakqybmmr[address] [facility] [id number] BY: CB [facility] Ckouul2605 [facility] [id number] [facility] ([id number]) ALT (SGPT) 28 [iU]/L (Normal) Range: 0-44 AST (SGOT) 32 [iU]/L (Normal) Range: 0-40 Alkaline Phosphatase, S 121 [iU]/L (Abnormal) Range: 39-117 Bilirubin, Total 0.9 mg/dL (Normal) Range: 0.0-1.2 A/G Ratio 1.1 (Abnormal) Range: 1.2-2.2 Globulin, Total 3.8 g/dL (Normal) Range: 1.5-4.5 Albumin, Serum 4.3 g/dL (Normal) Range: 3.6-4.8 Protein, Total, Serum 8.1 g/dL (Normal) Range: 6.0-8.5 Calcium, Serum 9.4 mg/dL (Normal) Range: 8.6-10.2 Carbon Dioxide, Total 23 mmol/L (Normal) Range: 18-29 Chloride, Serum 100 mmol/L (Normal) Range: 96-106 Potassium, Serum 4.7 mmol/L (Normal) Range: 3.5-5.2 Sodium, Serum 141 mmol/L (Normal) Range: 134-144 BUN/Creatinine Ratio 16 (Normal) Range: 10-24 eGFR If Africn Am 103 mL/min/1.73 (Normal) eGFR If NonAfricn Am 89 mL/min/1.73 (Normal) Creatinine, Serum 0.86 mg/dL (Normal) Range: 0.76-1.27 BUN 14 mg/dL (Normal) Range: 8-27 Glucose, Serum 85 mg/dL (Normal) Range: 65-99 04-Szl-528094:22 PSA (PROSTATE SPECIFIC Comments: PATIENT NOT FASTINGPERFORMED BY: [employer] LLClin6370 [facility] [id number] ANTIGEN) (V76.44) Prostate Specific Ag, 1.1 ng/mL (Normal) Range: 0.0-4.0 Serum Comments: achvr ECLIA methodology. .According to the [place] [employer], Serum PSA shoulddecrease and remain at undetectable levels after radicalprostatectomy. The AUA defines biochemical recurrence as an initialPSA value 0.2 ng/mL or greater followed by a subsequent confirmatoryPSA value 0.2 ng/mL or greater.Values obtained with d ifferent assay methods or kits cannot be usedinterchangeably. Results cannot be interpreted as absolute evidenceof the presence or absence of malignant disease. :22 PT (Prothrobim Time) ([id number]) Comments: PATIENT NOT FASTINGPERFORMED BY: [employer]6370 [facility] [id number] INR 1.9 (Abnormal) Range: 0.8-1.2 Comments: Reference interval is for non-anticoagulated patients. . Suggested INR therapeutic range for Vitamin K anta gonist therapy: Standard Dose (moderate intensity therapeutic range): 2.0 - 3.0 Higher intensity therapeutic range 2.5 - 3.5 Prothrombin Time 19.6 {sec} (Abnormal) Range: 9.1-12.0 12-Dsq-687854:22 METABOLIC PANEL, Comments: PATIENT NOT FASTINGPERFORMED BY: HEIKE iiyumaHackettstown Medical CenterFitdja1266 [facility] [id number] Information: [id number] COMPREHENSIVE ([id number]) ALT (SGPT) 21 [iU]/L (Normal) Range: 0-44 AST (SGOT) 29 [iU]/L (Normal) Range: 0-40 Alkaline Phosphatase, S 117 [iU]/L (Normal) Range: 39-117 Bilirubin, Total 0.7 mg/dL (Normal) Range: 0.0-1.2 A/G Ratio 1.2 (Normal) Range: 1.1-2.5 Globulin, Total 3.6 g/dL (Normal) Range: 1.5-4.5 Albumin, Serum 4.3 g/dL (Normal) Range: 3.6-4.8 Protein, Total, Serum 7.9 g/dL (Normal) Range: 6.0-8.5 Calcium, Serum 9.1 mg/dL (Normal) Range: 8.6-10.2 Carbon Dioxide, Total 25 mmol/L (Normal) Range: 18-29 Chloride, Serum 101 mmol/L (Normal) Range: 97-108 Potassium, Serum 4.6 mmol/L (Normal) Range: 3.5-5.2 Sodium, Serum 141 mmol/L (Normal) Range: 134-144 BUN/Creatinine Ratio 16 (Normal) Range: 10-22 eGFR If Africn Am 105 mL/min/1.73 (Normal) eGFR If NonAfricn Am 90 mL/min/1.73 (Normal) Creatinine, Serum 0.83 mg/dL (Normal) Range: 0.76-1.27 BUN 13 mg/dL (Normal) Range: 8-27 Glucose, Serum 87 mg/dL (Normal) Range: 65-99 :55 Comprehensive Metabolic Profil Comments: [facility] [address] [place], [place], [id number] GAP 5 (Normal) Range: 5-15 CO2 31.0 mmol/L (Normal) Range: 21.0-32.0 CL 105 mmol/L (Normal) Range: 98-107 K 4.3 mmol/L (Normal) Range: 3.5-5.1 NA 141 mmol/L (Normal) Range: 136-145 T BILI 0.40 mg/dL (Normal) Range: 0.20-1.00 ALT 26 U/L (Normal) Range: 12-78 ALK P 122 U/L (Normal) Range: 50-136 AST 28 U/L (Normal) Range: 15-37 CA 8.8 mg/dL (Normal) Range: 8.5-10.1 A/G 0.9 {RATIO} (Normal) Range: 0.9-2.4 GLOB 4.0 g/dL (Abnormal) Range: 2.3-3.5 ALB 3.6 g/dL (Normal) Range: 3.4-5.0 T PROT 7.6 g/dL (Normal) Range: 6.4-8.2 BUN/CRE 12.8 {RATIO} (Normal) Range: 10-20 EST GFR - AA 127 mL/min (Normal) Comments: GFR Calc EST GFR 105 mL/min (Normal) Comments: Non- GFR Calc CREAT,SERUM 0.78 mg/dL (Normal) Range: 0.70-1.30 Comments: The validity of the calculated GFR AND GFRAA in patients over70 years has not been determined. Clinical correlation isessential. BUN 10 mg/dL (Normal) Range: 7-18 GLU 99 mg/dL (Normal) Range: 70-110 :55 GGTP 33 U/L (Normal) Comments: [facility] [address] [place], [place], [id number] Range: 15-85 :03 PT (Prothrobim Time) Comments: standing order; PATIENT NOT FASTINGPERFORMED BY: LabCoHackettstown Medical CenterFnvcxi8477 [facility] [id number] Information: [id number] ([id number]) Prothrombin Time 32.4 {sec} (Abnormal) Range: 9.1-12.0 INR 3.1 (Abnormal) Range: 0.8-1.2 Comments: Reference interval is for non-anticoagulated patients. . Suggested INR therapeutic range for Vitamin K anta gonist therapy: Standard Dose (moderate intensity therapeutic range): 2.0 - 3.0 Higher intensity therapeutic range 2.5 - 3.5 :04 PT (Prothrobim Time) Comments: standing order; PATIENT NOT FASTINGPERFORMED BY: [facility]6370 [facility] [id number] Information: [id number] ([id number]) Prothrombin Time 26.3 {sec} (Abnormal) Range: 9.1-12.0 INR 2.5 (Abnormal) Range: 0.8-1.2 Comments: Reference interval is for non-anticoagulated patients. . Suggested INR therapeutic range for Vitamin K anta gonist therapy: Standard Dose (moderate intensity therapeutic range): 2.0 - 3.0 Higher intensity therapeutic range 2.5 - 3.5 :55 LIPID PANEL ([id number]) Comments: Test(s) Potassium, Serum called to Dr Powell on 01/24/2016 at 23:51 ESTPATIENT WAS FASTINGPERFORMED BY: [facility]6370 [facility] [id number] LDL/HDL Ratio 2.4 {ratio_units} (Normal) Range: 0.0-3.6 Comments: LDL/HDL Ratio Men Women 1/2 Avg.Risk 1.0 1.5 Av g.Risk 3.6 3.2 2X Avg.Risk 6.2 5.0 3X Avg.Risk 8.0 6.1 LDL Cholesterol Calc 118 mg/dL (Abnormal) Range: 0-99 VLDL Cholesterol Lisa 12 mg/dL (Normal) Range: 5-40 HDL Cholesterol 50 mg/dL (Normal) Comments: According to ATP-III Guidelines, HDL-C >59 mg/dL is considered anegative risk factor for CHD. Triglycerides 61 mg/dL (Normal) Range: 0-149 Cholesterol, Total 180 mg/dL (Normal) Range: 100-199 24-Jan-20167:55 CBC with auto diff Comments: Test(s) Potassium, Serum called to Dr Powell on 01/24/2016 at 23:51 ESTPATIENT WAS FASTINGPERFORMED BY: [facility]Tr[facility]6370 [facility] [id number] Information: [id number] ([id number]) Immature Grans (Abs) 0.0 {x10E3/uL} (Normal) Range: 0.0-0.1 Immature Granulocytes 0 % (Normal) Baso (Absolute) 0.0 {x10E3/uL} (Normal) Range: 0.0-0.2 Eos (Absolute) 0.1 {x10E3/uL} (Normal) Range: 0.0-0.4 Monocytes(Absolute) 0.8 {x10E3/uL} (Normal) Range: 0.1-0.9 Lymphs (Absolute) 1.7 {x10E3/uL} (Normal) Range: 0.7-3.1 Neutrophils (Absolute) 5.9 {x10E3/uL} (Normal) Range: 1.4-7.0 Basos 0 % (Normal) Eos 1 % (Normal) Monocytes 10 % (Normal) Lymphs 20 % (Normal) Neutrophils 69 % (Normal) Platelets 350 {x10E3/uL} (Normal) Range: 150-379 RDW 13.1 % (Normal) Range: 12.3-15.4 MCHC 33.3 g/dL (Normal) Range: 31.5-35.7 MCH 29.5 pg (Normal) Range: 26.6-33.0 MCV 88 fL (Normal) Range: 79-97 Hematocrit 46.5 % (Normal) Range: 37.5-51.0 Hemoglobin 15.5 g/dL (Normal) Range: 12.6-17.7 RBC 5.26 {x10E6/uL} (Normal) Range: 4.14-5.80 WBC 8.6 {x10E3/uL} (Normal) Range: 3.4-10.8 24-Jan-20167:55 METABOLIC PANEL, COMPREHENSIVE Comments: Test(s) Potassium, Serum called to Dr Powell on 01/24/2016 at 23:51 ESTPATIENT WAS FASTINGPERFORMED BY: [email or web address]]Rndnbw5953 [facility] [id number] ([id number]) ALT (SGPT) 24 [iU]/L (Normal) Range: 0-44 AST (SGOT) 31 [iU]/L (Normal) Range: 0-40 Alkaline Phosphatase, S 135 [iU]/L (Abnormal) Range: 39-117 Bilirubin, Total 0.6 mg/dL (Normal) Range: 0.0-1.2 A/G Ratio 1.4 (Normal) Range: 1.1-2.5 Globulin, Total 3.3 g/dL (Normal) Range: 1.5-4.5 Albumin, Serum 4.5 g/dL (Normal) Range: 3.6-4.8 Protein, Total, Serum 7.8 g/dL (Normal) Range: 6.0-8.5 Calcium, Serum 9.5 mg/dL (Normal) Range: 8.6-10.2 Carbon Dioxide, Total 24 mmol/L (Normal) Range: 18-29 Chloride, Serum 101 mmol/L (Normal) Range: 97-108 Potassium, Serum 5.7 mmol/L (Abnormal) Range: 3.5-5.2 Comments: Client Requested Flag Sodium, Serum 142 mmol/L (Normal) Range: 134-144 BUN/Creatinine Ratio 14 (Normal) Range: 10-22 eGFR If Africn Am 102 mL/min/1.73 (Normal) eGFR If NonAfricn Am 88 mL/min/1.73 (Normal) Creatinine, Serum 0.90 mg/dL (Normal) Range: 0.76-1.27 BUN 13 mg/dL (Normal) Range: 8-27 Glucose, Serum 80 mg/dL (Normal) Range: 65-99 :55 TSH (45107) Comments: Test(s) Potassium, Serum called to Dr Powell on 01/24/2016 at 23:51 ESTPATIENT WAS FASTINGPERFORMED BY: LabCoHackettstown Medical CenterQpnzft4747 [facility] [id number] TSH 1.870 {uIU/mL} (Normal) Range: 0.450-4.500 :55 PT (Prothrobim Time) Comments: standing order; PATIENT NOT FASTINGPERFORMED BY: HEIKE [facility] Kxxffe9255 [place] [id number] Information: [id number] ([id number]) Prothrombin Time 33.8 {sec} (Abnormal) Range: 9.1-12.0 INR 3.3 (Abnormal) Range: 0.8-1.2 Comments: Reference interval is for non-anticoagulated patients. . Suggested INR therapeutic range for Vitamin K anta gonist therapy: Standard Dose (moderate intensity therapeutic range): 2.0 - 3.0 Higher intensity therapeutic range 2.5 - 3.5 :47 Basic Metabolic Profile (BMP) Comments: [facility] [address] [place], [address] GAP 1 (Abnormal) Range: 5-15 CO2 32.0 mmol/L (Normal) Range: 21.0-32.0 CL 108 mmol/L (Abnormal) Range: 98-107 K 5.3 mmol/L (Abnormal) Range: 3.5-5.1 NA 141 mmol/L (Normal) Range: 136-145 CA 9.2 mg/dL (Normal) Range: 8.5-10.1 BUN/CRE 15.4 {RATIO} (Normal) Range: 10-20 Estimated CRCL 96.44 ml/min (Normal) EST GFR - AA 116 mL/min (Normal) Comments: GFR Calc EST GFR 96 mL/min (Normal) Comments: Non- GFR Calc CREAT,SERUM 0.84 mg/dL (Normal) Range: 0.70-1.30 Comments: The validity of the calculated GFR AND GFRAA in patients over70 years has not been determined. Clinical correlation isessential. BUN 13 mg/dL (Normal) Range: 7-18 GLU 90 mg/dL (Normal) Range: 70-110 :47 CBC-Complete Blood Cnt No Diff Comments: [facility] [address] [place], [place], [id number] ; ordered by Dr. Penn MPV 10.2 fL (Normal) Range: 6.2-12.0 PLT 290 K/mm3 (Normal) Range: 150-450 RDW SD 41.4 fL (Normal) Range: 35.1-43.9 RDW CV 13.2 % (Normal) Range: 11.6-14.6 MCHC 34.2 {g/gl} (Normal) Range: 32-36 MCH 29.9 pg (Normal) Range: 27.0-32.0 MCV 87.5 fL (Normal) Range: 80-94 HCT 43.9 % (Normal) Range: 40-54 HGB 15.0 g/dL (Normal) Range: 13.0-16.5 RBC 5.02 {M/mm3} (Normal) Range: 4.6-6.2 WBC 10.3 K/mm3 (Normal) Range: 4.4-11.0 :47 Partial Thromboplast Time Comments: [facility] [address] [facility] [place], [place], [address] PTT 36.2 s (Normal) Range: 24.1-36.2 :47 Prothrombin Time w/INR Comments: [facility] [address]izzorb[address] [facility]. [place], [place], [address] INR 2.7 (Normal) PROTIME 28.8 s (Abnormal) Range: 11.7-14.9 :10 PT (Prothrobim Time) Comments: standing order; PATIENT NOT FASTINGPERFORMED BY: iiyumaPatricia [place] 2282170 [facility] [id number] Information: [id number] ([id number]) Prothrombin Time 28.0 {sec} (Abnormal) Range: 9.1-12.0 INR 2.7 (Abnormal) Range: 0.8-1.2 Comments: Reference interval is for non-anticoagulated patients. . Suggested INR therapeutic range for Vitamin K anta gonist therapy: Standard Dose (moderate intensity therapeutic range): 2.0 - 3.0 Higher intensity therapeutic range 2.5 - 3.5 :03 PT (Prothrobim Time) Comments: standing order; PATIENT NOT FASTINGPERFORMED BY: [facility]6370 [facility] [id number] Information: [id number] ([id number]) Prothrombin Time 29.5 {sec} (Abnormal) Range: 9.1-12.0 INR 2.8 (Abnormal) Range: 0.8-1.2 Comments: Reference interval is for non-anticoagulated patients. . Suggested INR therapeutic range for Vitamin K anta gonist therapy: Standard Dose (moderate intensity therapeutic range): 2.0 - 3.0 Higher intensity therapeutic range 2.5 - 3.5 :08 PT (Prothrobim Time) Comments: standing order; PATIENT NOT FASTINGPERFORMED BY: [place] 3740670 [facility] [id number] Information: [id number],2ND ORDER ([id number]) Prothrombin Time 27.1 {sec} (Abnormal) Range: 9.1-12.0 INR 2.6 (Abnormal) Range: 0.8-1.2 Comments: Reference interval is for non-anticoagulated patients. . Suggested INR therapeutic range for Vitamin K anta gonist therapy: Standard Dose (moderate intensity therapeutic range): 2.0 - 3.0 Higher intensity therapeutic range 2.5 - 3.5 :08 TSH (THYROID STIMULATING Comments: PATIENT NOT FASTINGPERFORMED BY: [address] [id number] Information: [id number] HORMONE) ([id number]) TSH 1.670 {uIU/mL} (Normal) Range: 0.450-4.500 :03 PT (Prothrobim Time) Comments: standing order; PATIENT NOT FASTINGPERFORMED BY: [place] 3740670 [facility] [id number] Information: [id number] (12947) Prothrombin Time 29.6 {sec} (Abnormal) Range: 9.1-12.0 INR 2.9 (Abnormal) Range: 0.8-1.2 Comments: Reference interval is for non-anticoagulated patients. . Suggested INR therapeutic range for Vitamin K anta gonist therapy: Standard Dose (moderate intensity therapeutic range): 2.0 - 3.0 Higher intensity therapeutic range 2.5 - 3.5 :02 TSH (06468) Comments: PATIENT NOT FASTINGPERFORMED BY: [facility] Qrpbsj4091 [facility] [id number] Information: [id number], [id number] TSH 5.300 {uIU/mL} (Abnormal) Range: 0.450-4.500 7-Hif-971307:15 PT (Prothrobim Time) Comments: standing order; PATIENT NOT FASTINGPERFORMED BY: [facility] Mcjalu3357 [facility] [id number] Information: [id number] ([id number]) Prothrombin Time 24.7 {sec} (Abnormal) Range: 9.1-12.0 INR 2.4 (Abnormal) Range: 0.8-1.2 Comments: Reference interval is for non-anticoagulated patients. . Suggested INR therapeutic range for Vitamin K anta gonist therapy: Standard Dose (moderate intensity therapeutic range): 2.0 - 3.0 Higher intensity therapeutic range 2.5 - 3.5 :59 PT (Prothrobim Time) Comments: Standing ORder; PATIENT NOT FASTINGPERFORMED BY: [facility] Jkmdqy0142 [facility] [id number] Information: [id number] (76055) Prothrombin Time 26.2 {sec} (Abnormal) Range: 9.1-12.0 INR 2.5 (Abnormal) Range: 0.8-1.2 Comments: Reference interval is for non-anticoagulated patients. . Suggested INR therapeutic range for Vitamin K anta gonist therapy: Standard Dose (moderate intensity therapeutic range): 2.0 - 3.0 Higher intensity therapeutic range 2.5 - 3.5 :02 TSH (78837) Comments: PATIENT WAS FASTINGPERFORMED BY: [facility] Yrtjyf2934 [facility] [id number]; [address] TSH 5.980 {uIU/mL} (Abnormal) Range: 0.450-4.500 :02 METABOLIC PANEL, Comments: PATIENT WAS FASTINGPERFORMED BY: [facility] Fbedyi0809 [facility] [id number] Information: [id number] COMPREHENSIVE (04402) ALT (SGPT) 20 [iU]/L (Normal) Range: 0-44 AST (SGOT) 28 [iU]/L (Normal) Range: 0-40 Alkaline Phosphatase, S 106 [iU]/L (Normal) Range: 39-117 Bilirubin, Total 0.8 mg/dL (Normal) Range: 0.0-1.2 A/G Ratio 1.3 (Normal) Range: 1.1-2.5 Globulin, Total 3.3 g/dL (Normal) Range: 1.5-4.5 Albumin, Serum 4.4 g/dL (Normal) Range: 3.6-4.8 Protein, Total, Serum 7.7 g/dL (Normal) Range: 6.0-8.5 Calcium, Serum 9.1 mg/dL (Normal) Range: 8.6-10.2 Carbon Dioxide, Total 23 mmol/L (Normal) Range: 18-29 Chloride, Serum 101 mmol/L (Normal) Range: 97-108 Potassium, Serum 5.0 mmol/L (Normal) Range: 3.5-5.2 Sodium, Serum 139 mmol/L (Normal) Range: 134-144 BUN/Creatinine Ratio 15 (Normal) Range: 10-22 eGFR If Africn Am 104 mL/min/1.73 (Normal) eGFR If NonAfricn Am 90 mL/min/1.73 (Normal) Creatinine, Serum 0.86 mg/dL (Normal) Range: 0.76-1.27 BUN 13 mg/dL (Normal) Range: 8-27 Glucose, Serum 87 mg/dL (Normal) Range: 65-99 26-Apr-20158:02 LIPID PANEL (47785) Comments: PATIENT WAS FASTINGPERFORMED BY: LabCoHackettstown Medical CenterSctawy6798 [facility] [id number] LDL/HDL Ratio 2.1 {ratio_units} (Normal) Range: 0.0-3.6 Comments: LDL/HDL Ratio Men Women 1/2 Avg.Risk 1.0 1.5 Av g.Risk 3.6 3.2 2X Avg.Risk 6.2 5.0 3X Avg.Risk 8.0 6.1 LDL Cholesterol Calc 105 mg/dL (Abnormal) Range: 0-99 VLDL Cholesterol Lisa 14 mg/dL (Normal) Range: 5-40 HDL Cholesterol 49 mg/dL (Normal) Comments: According to ATP-III Guidelines, HDL-C >59 mg/dL is considered anegative risk factor for CHD. Triglycerides 71 mg/dL (Normal) Range: 0-149 Cholesterol, Total 168 mg/dL (Normal) Range: 100-199 :03 PT (Prothrobim Time) Comments: standing order; PATIENT NOT FASTINGPERFORMED BY: [place] 3740670 [facility] [id number] Information: [id number] ([id number]) Prothrombin Time 33.1 {sec} (Abnormal) Range: 9.1-12.0 INR 3.2 (Abnormal) Range: 0.8-1.2 Comments: Reference interval is for non-anticoagulated patients. . Suggested INR therapeutic range for Vitamin K anta gonist therapy: Standard Dose (moderate intensity therapeutic range): 2.0 - 3.0 Higher intensity therapeutic range 2.5 - 3.5 :11 PT (Prothrobim Time) Comments: standing order; PATIENT NOT FASTINGPERFORMED BY: [facility]6370 [facility] [id number] Information: [id number] ([id number]) Prothrombin Time 30.7 {sec} (Abnormal) Range: 9.1-12.0 INR 2.8 (Abnormal) Range: 0.8-1.2 Comments: Reference interval is for non-anticoagulated patients. . Suggested INR therapeutic range for Vitamin K anta gonist therapy: Standard Dose (moderate intensity therapeutic range): 2.0 - 3.0 Higher intensity therapeutic range 2.5 - 3.5 :28 Prothrombin Time (PT) Comments: PATIENT NOT FASTINGPERFORMED BY: [place] [id number] [facility] [id number] Information: [id number] Prothrombin Time 26.7 {sec} (Abnormal) Range: 9.1-12.0 INR 2.5 (Abnormal) Range: 0.8-1.2 Comments: Reference interval is for non-anticoagulated patients. . Suggested INR therapeutic range for Vitamin K anta gonist therapy: Standard Dose (moderate intensity therapeutic range): 2.0 - 3.0 Higher intensity therapeutic range 2.5 - 3.5 :21 PT (Prothrobim Time) Comments: standing order; PATIENT NOT FASTINGPERFORMED BY: [place] 3740670 [facility] [id number] Information: [id number],2ND ORDER ([id number]) Prothrombin Time 22.1 {sec} (Abnormal) Range: 9.1-12.0 INR 2.0 (Abnormal) Range: 0.8-1.2 Comments: Reference interval is for non-anticoagulated patients. . Suggested INR therapeutic range for Vitamin K anta gonist therapy: Standard Dose (moderate intensity therapeutic range): 2.0 - 3.0 Higher intensity therapeutic range 2.5 - 3.5 :34 PT (Prothrobim Time) Comments: standing order; PATIENT NOT FASTINGPERFORMED BY: [place] [id number] [facility] [id number] Information: [id number] ([id number]) Prothrombin Time 23.5 {sec} (Abnormal) Range: 9.1-12.0 INR 2.2 (Abnormal) Range: 0.8-1.2 Comments: Reference interval is for non-anticoagulated patients. . Suggested INR therapeutic range for Vitamin K anta gonist therapy: Standard Dose (moderate intensity therapeutic range): 2.0 - 3.0 Higher intensity therapeutic range 2.5 - 3.5 :41 POTASSIUM SERUM (70650) Comments: PERFORMED BY: [place] [id number] [facility] [id number] Potassium, Serum 4.5 mmol/L (Normal) Range: 3.5-5.2 :22 PT (Prothrobim Time) Comments: standing order; PATIENT NOT FASTINGPERFORMED BY: [place] 3740670 [facility] [id number] Information: [id number] ([id number]) Prothrombin Time 23.6 {sec} (Abnormal) Range: 9.1-12.0 INR 2.2 (Abnormal) Range: 0.8-1.2 Comments: Reference interval is for non-anticoagulated patients. . Suggested INR therapeutic range for Vitamin K anta gonist therapy: Standard Dose (moderate intensity therapeutic range): 2.0 - 3.0 Higher intensity therapeutic range 2.5 - 3.5 :21 Potassium Serum (37126) Comments: standing order; PATIENT NOT FASTINGPERFORMED BY: [address] [id number] Information: [id number] Potassium, Serum 4.9 mmol/L (Normal) Range: 3.5-5.2 :00 Microscopic Examination Comments: PATIENT WAS FASTINGPERFORMED BY: [address] [id number] Bacteria None seen (Normal) Mucus Threads Present (Normal) Epithelial Cells (non renal) None seen {/hpf} (Normal) Range: 0 - 10 RBC 0-2 {/hpf} (Normal) Range: 0 - 2 WBC None seen {/hpf} (Normal) Range: 0 - 5 :12 PT (Prothrobim Time) Comments: standing order; PATIENT NOT FASTINGPERFORMED BY: [place] [id number] [facility] [id number] Information: [id number] ([id number]) Prothrombin Time 21.0 {sec} (Abnormal) Range: 9.1-12.0 INR 1.9 (Abnormal) Range: 0.8-1.2 Comments: Reference interval is for non-anticoagulated patients. . Suggested INR therapeutic range for Vitamin K anta gonist therapy: Standard Dose (moderate intensity therapeutic range): 2.0 - 3.0 Higher intensity therapeutic range 2.5 - 3.5 :12 PT (Prothrobim Time) Comments: standing order; PATIENT NOT FASTINGPERFORMED BY: [facility]6370 [facility] [id number] Information: [id number] ([id number]) Prothrombin Time 17.8 {sec} (Abnormal) Range: 9.1-12.0 INR 1.7 (Abnormal) Range: 0.8-1.2 Comments: Reference interval is for non-anticoagulated patients. . Suggested INR therapeutic range for Vitamin K anta gonist therapy: Standard Dose (moderate intensity therapeutic range): 2.0 - 3.0 Higher intensity therapeutic range 2.5 - 3.5 :11 PT (Prothrobim Time) Comments: standing order; PATIENT NOT FASTINGPERFORMED BY: [place] [id number] [facility] [id number] Information: [id number] ([id number]) Prothrombin Time 22.9 {sec} (Abnormal) Range: 9.1-12.0 INR 2.1 (Abnormal) Range: 0.8-1.2 Comments: Reference interval is for non-anticoagulated patients. . Suggested INR therapeutic range for Vitamin K anta gonist therapy: Standard Dose (moderate intensity therapeutic range): 2.0 - 3.0 Higher intensity therapeutic range 2.5 - 3.5 :00 PT (Prothrobim Time) Comments: standing order; PATIENT NOT FASTINGPERFORMED BY: [facility]6370 [facility] [id number] Information: [id number] ([id number]) Prothrombin Time 18.3 {sec} (Abnormal) Range: 9.1-12.0 INR 1.7 (Abnormal) Range: 0.8-1.2 Comments: Reference interval is for non-anticoagulated patients. . Suggested INR therapeutic range for Vitamin K anta gonist therapy: Standard Dose (moderate intensity therapeutic range): 2.0 - 3.0 Higher intensity therapeutic range 2.5 - 3.5 :09 PT (Prothrobim Time) (66872) Comments: standing order; PERFORMED BY: [facility]6370 [facility] [id number] Prothrombin Time 28.2 {sec} (Abnormal) Range: 9.1-12.0 INR 2.6 (Abnormal) Range: 0.8-1.2 Comments: Reference interval is for non-anticoagulated patients. . Suggested INR therapeutic range for Vitamin K anta gonist therapy: Standard Dose (moderate intensity therapeutic range): 2.0 - 3.0 Higher intensity therapeutic range 2.5 - 3.5 :16 PT (Prothrobim Time) Comments: standing order; PATIENT NOT FASTINGPERFORMED BY: [facility]6370 [facility] [id number] Information: [id number] ([id number]) Prothrombin Time 22.8 {sec} (Abnormal) Range: 9.1-12.0 INR 2.1 (Abnormal) Range: 0.8-1.2 Comments: Reference interval is for non-anticoagulated patients. . Suggested INR therapeutic range for Vitamin K anta gonist therapy: Standard Dose (moderate intensity therapeutic range): 2.0 - 3.0 Higher intensity therapeutic range 2.5 - 3.5 :52 PT (PROTHROMBIN TIME) Comments: standing order; PATIENT NOT FASTINGPERFORMED BY: [facility]6370 [facility] [id number] Information: [id number] ([id number]) Prothrombin Time 22.7 {sec} (Abnormal) Range: 9.1-12.0 INR 2.1 (Abnormal) Range: 0.8-1.2 Comments: Reference interval is for non-anticoagulated patients. . Suggested INR therapeutic range for Vitamin K anta gonist therapy: Standard Dose (moderate intensity therapeutic range): 2.0 - 3.0 Higher intensity therapeutic range 2.5 - 3.5 56-Zxp-03940:00 PSA (PROSTATE SPECIFIC Comments: PATIENT WAS FASTINGPERFORMED BY: [facility]6370 [facility] [id number] ANTIGEN) (V76.44) Prostate Specific Ag, 0.8 ng/mL (Normal) Range: 0.0-4.0 Serum Comments: [employer] ECLIA methodology. .According to the [place], Serum PSA shoulddecrease and remain at undetectable levels after radicalprostatectomy. The AUA defines biochemical recurrence as an initialPSA value 0.2 ng/mL or greater followed by a subsequent confirmatoryPSA value 0.2 ng/mL or greater.Values obtained with d ifferent assay methods or kits cannot be usedinterchangeably. Results cannot be interpreted as absolute evidenceof the presence or absence of malignant disease. :00 URINALYSIS, W/ MICRO ([id number]) Comments: PATIENT WAS FASTINGPERFORMED BY: iiyumaHackettstown Medical CenterDhbldt0426 [facility] [id number] Microscopic Examination See below: (Normal) Comments: Microscopic was indicated and was performed. Microscopic Examination MICRON (Normal) Comments: Microscopic follows if indicated. Nitrite, Urine Negative (Normal) Urobilinogen,Semi-Qn 0.2 mg/dL (Normal) Range: 0.0-1.9 Bilirubin Negative (Normal) Occult Blood Negative (Normal) Ketones Negative (Normal) Glucose Negative (Normal) Protein Negative (Normal) WBC Esterase Negative (Normal) Appearance Clear (Normal) Urine-Color Yellow (Normal) pH 6.5 (Normal) Range: 5.0-7.5 Specific [place] 1.014 (Normal) Range: 1.005-1.030 :00 METABOLIC PANEL, Comments: PATIENT WAS FASTINGPERFORMED BY: CircuportHackettstown Medical CenterVjmtvv2856 [facility] [id number] Information: [id number],2ND ORDER COMPREHENSIVE ([id number]) ALT (SGPT) 18 [iU]/L (Normal) Range: 0-44 AST (SGOT) 27 [iU]/L (Normal) Range: 0-40 Alkaline Phosphatase, S 113 [iU]/L (Normal) Range: 39-117 Bilirubin, Total 0.8 mg/dL (Normal) Range: 0.0-1.2 A/G Ratio 1.3 (Normal) Range: 1.1-2.5 Globulin, Total 3.3 g/dL (Normal) Range: 1.5-4.5 Albumin, Serum 4.4 g/dL (Normal) Range: 3.6-4.8 Protein, Total, Serum 7.7 g/dL (Normal) Range: 6.0-8.5 Calcium, Serum 9.5 mg/dL (Normal) Range: 8.6-10.2 Carbon Dioxide, Total 24 mmol/L (Normal) Range: 18-29 Chloride, Serum 100 mmol/L (Normal) Range: 97-108 Potassium, Serum 5.5 mmol/L (Abnormal) Range: 3.5-5.2 Sodium, Serum 141 mmol/L (Normal) Range: 134-144 BUN/Creatinine Ratio 17 (Normal) Range: 10-22 eGFR If Africn Am 109 mL/min/1.73 (Normal) eGFR If NonAfricn Am 94 mL/min/1.73 (Normal) Creatinine, Serum 0.78 mg/dL (Normal) Range: 0.76-1.27 BUN 13 mg/dL (Normal) Range: 8-27 Glucose, Serum 84 mg/dL (Normal) Range: 65-99 65-Yjm-51639:00 LIPID PANEL ([id number]) Comments: PATIENT WAS FASTINGPERFORMED BY: CircuportHackettstown Medical CenterMroowc9199 [facility] [id number] LDL/HDL Ratio 2.5 {ratio_units} (Normal) Range: 0.0-3.6 Comments: LDL/HDL Ratio Men Women 1/2 Avg.Risk 1.0 1.5 Av g.Risk 3.6 3.2 2X Avg.Risk 6.2 5.0 3X Avg.Risk 8.0 6.1 LDL Cholesterol Calc 111 mg/dL (Abnormal) Range: 0-99 VLDL Cholesterol Lisa 16 mg/dL (Normal) Range: 5-40 HDL Cholesterol 45 mg/dL (Normal) Comments: According to ATP-III Guidelines, HDL-C >59 mg/dL is considered anegative risk factor for CHD. Triglycerides 79 mg/dL (Normal) Range: 0-149 Cholesterol, Total 172 mg/dL (Normal) Range: 100-199 :57 PT (PROTHROMBIN TIME) Comments: standing order; PATIENT NOT FASTINGPERFORMED BY: [employer]6370 [facility] [id number] Information: [id number],2ND ORDER NO DRAW F EE ([id number]) Prothrombin Time 27.4 {sec} (Abnormal) Range: 9.1-12.0 INR 2.5 (Abnormal) Range: 0.8-1.2 Comments: Reference interval is for non-anticoagulated patients. . Suggested INR therapeutic range for Vitamin K anta gonist therapy: Standard Dose (moderate intensity therapeutic range): 2.0 - 3.0 Higher intensity therapeutic range 2.5 - 3.5 :05 PT (PROTHROMBIN TIME) Comments: standing order; PATIENT NOT FASTINGPERFORMED BY: [facility]6370 [facility] [id number] Information: [id number] ([id number]) Prothrombin Time 24.7 {sec} (Abnormal) Range: 9.1-12.0 INR 2.4 (Abnormal) Range: 0.8-1.2 Comments: Reference interval is for non-anticoagulated patients. . Suggested INR therapeutic range for Vitamin K anta gonist therapy: Standard Dose (moderate intensity therapeutic range): 2.0 - 3.0 Higher intensity therapeutic range 2.5 - 3.5 :25 PT (PROTHROMBIN TIME) Comments: standing order; PATIENT NOT FASTINGPERFORMED BY: [facility]6370 [facility] [id number] Information: [id number] ([id number]) Prothrombin Time 21.4 {sec} (Abnormal) Range: 9.1-12.0 INR 2.1 (Abnormal) Range: 0.8-1.2 Comments: Reference interval is for non-anticoagulated patients. . Suggested INR therapeutic range for Vitamin K anta gonist therapy: Standard Dose (moderate intensity therapeutic range): 2.0 - 3.0 Higher intensity therapeutic range 2.5 - 3.5 :11 PT (PROTHROMBIN TIME) Comments: standing order; PATIENT NOT FASTINGPERFORMED BY: [facility]6370 [facility] [id number] Information: [id number] ([id number]) Prothrombin Time 23.7 {sec} (Abnormal) Range: 9.1-12.0 INR 2.3 (Abnormal) Range: 0.8-1.2 Comments: Reference interval is for non-anticoagulated patients. . Suggested INR therapeutic range for Vitamin K anta gonist therapy: Standard Dose (moderate intensity therapeutic range): 2.0 - 3.0 Higher intensity therapeutic range 2.5 - 3.5 :13 PT (PROTHROMBIN TIME) Comments: standing order; PATIENT NOT FASTINGPERFORMED BY: [place] [id number] [facility] [id number] Information: [id number] ([id number]) Prothrombin Time 24.4 {sec} (Abnormal) Range: 9.1-12.0 INR 2.3 (Abnormal) Range: 0.8-1.2 Comments: Reference interval is for non-anticoagulated patients. . Suggested INR therapeutic range for Vitamin K anta gonist therapy: Standard Dose (moderate intensity therapeutic range): 2.0 - 3.0 Higher intensity therapeutic range 2.5 - 3.5 :44 PT (PROTHROMBIN TIME) Comments: standing order; PATIENT NOT FASTINGPERFORMED BY: [facility]6370 [facility] [id number] Information: [id number] ([id number]) Prothrombin Time 23.4 {sec} (Abnormal) Range: 9.1-12.0 INR 2.3 (Abnormal) Range: 0.8-1.2 Comments: Reference interval is for non-anticoagulated patients. . Suggested INR therapeutic range for Vitamin K anta gonist therapy: Standard Dose (moderate intensity therapeutic range): 2.0 - 3.0 Higher intensity therapeutic range 2.5 - 3.5 :36 PT (PROTHROMBIN TIME) Comments: standing order; PATIENT NOT FASTINGPERFORMED BY: [place] [id number] [facility] [id number] Information: [id number] ([id number]) Prothrombin Time 25.2 {sec} (Abnormal) Range: 9.1-12.0 INR 2.4 (Abnormal) Range: 0.8-1.2 Comments: Reference interval is for non-anticoagulated patients. . Suggested INR therapeutic range for Vitamin K anta gonist therapy: Standard Dose (moderate intensity therapeutic range): 2.0 - 3.0 Higher intensity therapeutic range 2.5 - 3.5 :54 PT (PROTHROMBIN TIME) Comments: standing order; PATIENT NOT FASTINGPERFORMED BY: [facility]6370 [facility] [id number] Information: [id number] ([id number]) Prothrombin Time 19.8 {sec} (Abnormal) Range: 9.1-12.0 INR 1.9 (Abnormal) Range: 0.8-1.2 Comments: Reference interval is for non-anticoagulated patients. . Suggested INR therapeutic range for Vitamin K anta gonist therapy: Standard Dose (moderate intensity therapeutic range): 2.0 - 3.0 Higher intensity therapeutic range 2.5 - 3.5 :57 VARICELLA-ZOSTER ANTBODY ([id number]) Comments: PATIENT WAS FASTINGPERFORMED BY: [employer]6370 [facility] [id number] Varicella Zoster IgG 792 {index} (Normal) Comments: Negative <135 Equivocal 135 - 165 Positive >165 A positive result gener ally indicates exposure to the pathogen or administration of specific immunoglobulins, but it is not indication of active infection or stage of disease. :57 CBC WITH MANUAL DIFF Comments: PATIENT WAS FASTINGPERFORMED BY: [employer]6370 [facility] [id number] Information: [id number] ([id number]) Immature Grans (Abs) 0.0 {x10E3/uL} (Normal) Range: 0.0-0.1 Immature Granulocytes 0 % (Normal) Range: 0-2 Baso (Absolute) 0.0 {x10E3/uL} (Normal) Range: 0.0-0.2 Eos (Absolute) 0.1 {x10E3/uL} (Normal) Range: 0.0-0.4 Monocytes(Absolute) 0.7 {x10E3/uL} (Normal) Range: 0.1-0.9 Lymphs (Absolute) 1.7 {x10E3/uL} (Normal) Range: 0.7-3.1 Neutrophils (Absolute) 4.3 {x10E3/uL} (Normal) Range: 1.4-7.0 Basos 0 % (Normal) Range: 0-3 Eos 2 % (Normal) Range: 0-5 Monocytes 11 % (Normal) Range: 4-12 Lymphs 25 % (Normal) Range: 14-46 Neutrophils 62 % (Normal) Range: 40-74 Platelets 285 {x10E3/uL} (Normal) Range: 150-379 RDW 13.3 % (Normal) Range: 12.3-15.4 MCHC 33.9 g/dL (Normal) Range: 31.5-35.7 MCH 29.4 pg (Normal) Range: 26.6-33.0 MCV 87 fL (Normal) Range: 79-97 Hematocrit 44.2 % (Normal) Range: 37.5-51.0 Hemoglobin 15.0 g/dL (Normal) Range: 12.6-17.7 RBC 5.11 {x10E6/uL} (Normal) Range: 4.14-5.80 WBC 7.0 {x10E3/uL} (Normal) Range: 3.4-10.8 :57 TSH ([id number]) Comments: PATIENT WAS FASTINGPERFORMED BY: iiyumaHackettstown Medical CenterPhulps7799 [facility] [id number] TSH 4.410 {uIU/mL} (Normal) Range: 0.450-4.500 :57 METABOLIC PANEL, COMPREHENSIVE Comments: PATIENT WAS FASTINGPERFORMED BY: iiyumaHackettstown Medical CenterJgmmdu7391 [facility] [id number] ([id number]) ALT (SGPT) 18 [iU]/L (Normal) Range: 0-44 AST (SGOT) 29 [iU]/L (Normal) Range: 0-40 Alkaline Phosphatase, S 111 [iU]/L (Normal) Range: 39-117 Bilirubin, Total 0.7 mg/dL (Normal) Range: 0.0-1.2 A/G Ratio 1.3 (Normal) Range: 1.1-2.5 Globulin, Total 3.4 g/dL (Normal) Range: 1.5-4.5 Albumin, Serum 4.4 g/dL (Normal) Range: 3.6-4.8 Protein, Total, Serum 7.8 g/dL (Normal) Range: 6.0-8.5 Calcium, Serum 9.2 mg/dL (Normal) Range: 8.6-10.2 Carbon Dioxide, Total 24 mmol/L (Normal) Range: 18-29 Chloride, Serum 103 mmol/L (Normal) Range: 97-108 Potassium, Serum 5.0 mmol/L (Normal) Range: 3.5-5.2 Sodium, Serum 140 mmol/L (Normal) Range: 134-144 BUN/Creatinine Ratio 15 (Normal) Range: 10-22 eGFR If Africn Am 96 mL/min/1.73 (Normal) eGFR If NonAfricn Am 83 mL/min/1.73 (Normal) Creatinine, Serum 0.95 mg/dL (Normal) Range: 0.76-1.27 BUN 14 mg/dL (Normal) Range: 8-27 Glucose, Serum 89 mg/dL (Normal) Range: 65-99 :57 LIPID PANEL (25155) Comments: PATIENT WAS FASTINGPERFORMED BY: [employer] [facility] [id number] LDL/HDL Ratio 1.9 {ratio_units} (Normal) Range: 0.0-3.6 LDL Cholesterol Calc 97 mg/dL (Normal) Range: 0-99 HDL Cholesterol 50 mg/dL (Normal) Comments: According to ATP-III Guidelines, HDL-C >59 mg/dL is considered anegative risk factor for CHD. VLDL Cholesterol Lisa 14 mg/dL (Normal) Range: 5-40 Cholesterol, Total 161 mg/dL (Normal) Range: 100-199 Triglycerides 70 mg/dL (Normal) Range: 0-149 :08 PT (PROTHROMBIN TIME) Comments: standing order; PATIENT NOT FASTINGPERFORMED BY: iiyumaPatricia [place] [id number] [facility] [id number] Information: [id number] ([id number]) Prothrombin Time 20.6 {sec} (Abnormal) Range: 9.1-12.0 INR 2.0 (Abnormal) Range: 0.8-1.2 Comments: Reference interval is for non-anticoagulated patients. . Suggested INR therapeutic range for Vitamin K anta gonist therapy: Standard Dose (moderate intensity therapeutic range): 2.0 - 3.0 Higher intensity therapeutic range 2.5 - 3.5 :18 PT (PROTHROMBIN TIME) Comments: standing order; PATIENT NOT FASTINGPERFORMED BY: [place] [id number] [facility] [id number] Information: [id number] ([id number]) Prothrombin Time 21.7 {sec} (Abnormal) Range: 9.1-12.0 INR 2.1 (Abnormal) Range: 0.8-1.2 Comments: Reference interval is for non-anticoagulated patients. . Suggested INR therapeutic range for Vitamin K anta gonist therapy: Standard Dose (moderate intensity therapeutic range): 2.0 - 3.0 Higher intensity therapeutic range 2.5 - 3.5 9-Lpw-098756:10 PT (PROTHROMBIN TIME) Comments: standing order; PATIENT NOT FASTINGPERFORMED BY: [employer] [facility] [id number] Information: [id number] ([id number]) Prothrombin Time 23.8 {sec} (Abnormal) Range: 9.1-12.0 INR 2.3 (Abnormal) Range: 0.8-1.2 Comments: Reference interval is for non-anticoagulated patients. . Suggested INR therapeutic range for Vitamin K anta gonist therapy: Standard Dose (moderate intensity therapeutic range): 2.0 - 3.0 Higher intensity therapeutic range 2.5 - 3.5 :51 PSA (PROSTATE SPECIFIC Comments: screen since age 63 -- annual screen; PATIENT WAS FASTINGPERFORMED BY: [employer]6370 [facility] [id number] ANTIGEN) ([id number]) Prostate Specific Ag, 1.0 ng/mL (Normal) Range: 0.0-4.0 Serum Comments: [employer] ECLIA methodology. .According to the [place] [employer], Serum PSA shoulddecrease and remain at undetectable levels after radicalprostatectomy. The AUA defines biochemical recurrence as an initialPSA value 0.2 ng/mL or greater followed by a subsequent confirmatoryPSA value 0.2 ng/mL or greater.Values obtained with d ifferent assay methods or kits cannot be usedinterchangeably. Results cannot be interpreted as absolute evidenceof the presence or absence of malignant disease. :51 URINALYSIS (65527) Comments: PATIENT WAS FASTINGPERFORMED BY: [employer]6370 [facility] [id number] Microscopic Examination MICRON (Normal) Comments: Microscopic follows if indicated. Nitrite, Urine Negative (Normal) Urobilinogen,Semi-Qn 0.2 mg/dL (Normal) Range: 0.0-1.9 Bilirubin Negative (Normal) Occult Blood Negative (Normal) Ketones Negative (Normal) Glucose Negative (Normal) Protein Negative (Normal) WBC Esterase Negative (Normal) Appearance Clear (Normal) Urine-Color Yellow (Normal) pH 6.5 (Normal) Range: 5.0-7.5 Specific [place] 1.013 (Normal) Range: 1.005-1.030 75-Ssb-08380:51 CBC with manual diff Comments: PATIENT WAS FASTINGPERFORMED BY: [facility]6370 [facility] [id number] Information: [id number] ([id number]) Immature Grans (Abs) 0.0 {x10E3/uL} (Normal) Range: 0.0-0.1 Immature Granulocytes 0 % (Normal) Range: 0-2 Baso (Absolute) 0.0 {x10E3/uL} (Normal) Range: 0.0-0.2 Eos (Absolute) 0.1 {x10E3/uL} (Normal) Range: 0.0-0.4 Monocytes(Absolute) 0.8 {x10E3/uL} (Normal) Range: 0.1-0.9 Lymphs (Absolute) 1.9 {x10E3/uL} (Normal) Range: 0.7-3.1 Neutrophils (Absolute) 4.0 {x10E3/uL} (Normal) Range: 1.4-7.0 Basos 0 % (Normal) Range: 0-3 Eos 2 % (Normal) Range: 0-5 Monocytes 11 % (Normal) Range: 4-12 Lymphs 28 % (Normal) Range: 14-46 Neutrophils 59 % (Normal) Range: 40-74 Platelets 261 {x10E3/uL} (Normal) Range: 155-379 RDW 13.8 % (Normal) Range: 12.3-15.4 MCHC 32.9 g/dL (Normal) Range: 31.5-35.7 MCH 28.9 pg (Normal) Range: 26.6-33.0 MCV 88 fL (Normal) Range: 79-97 Hematocrit 43.5 % (Normal) Range: 37.5-51.0 Hemoglobin 14.3 g/dL (Normal) Range: 12.6-17.7 RBC 4.95 {x10E6/uL} (Normal) Range: 4.14-5.80 WBC 6.8 {x10E3/uL} (Normal) Range: 3.4-10.8 :51 METABOLIC PANEL, COMPREHENSIVE Comments: PATIENT WAS FASTINGPERFORMED BY: iiyuma Hqlucj6046 [facility] [id number] ([id number]) ALT (SGPT) 23 [iU]/L (Normal) Range: 0-44 AST (SGOT) 30 [iU]/L (Normal) Range: 0-40 Alkaline Phosphatase, S 101 [iU]/L (Normal) Range: 44-103 Bilirubin, Total 0.8 mg/dL (Normal) Range: 0.0-1.2 A/G Ratio 1.2 (Normal) Range: 1.1-2.5 Globulin, Total 3.5 g/dL (Normal) Range: 1.5-4.5 Albumin, Serum 4.3 g/dL (Normal) Range: 3.6-4.8 Protein, Total, Serum 7.8 g/dL (Normal) Range: 6.0-8.5 Calcium, Serum 9.2 mg/dL (Normal) Range: 8.6-10.2 Carbon Dioxide, Total 25 mmol/L (Normal) Range: 19-28 Chloride, Serum 102 mmol/L (Normal) Range: 97-108 Potassium, Serum 5.0 mmol/L (Normal) Range: 3.5-5.2 Sodium, Serum 140 mmol/L (Normal) Range: 134-144 BUN/Creatinine Ratio 19 (Normal) Range: 10-22 eGFR If Africn Am 109 mL/min/1.73 (Normal) eGFR If NonAfricn Am 94 mL/min/1.73 (Normal) Creatinine, Serum 0.79 mg/dL (Normal) Range: 0.76-1.27 BUN 15 mg/dL (Normal) Range: 8-27 Glucose, Serum 95 mg/dL (Normal) Range: 65-99 :51 LIPID PANEL (92073) Comments: PATIENT WAS FASTINGPERFORMED BY: iiyuma Kdjdjo1070 [facility] [id number] LDL/HDL Ratio 2.0 {ratio_units} (Normal) Range: 0.0-3.6 LDL Cholesterol Calc 108 mg/dL (Abnormal) Range: 0-99 VLDL Cholesterol Lisa 13 mg/dL (Normal) Range: 5-40 HDL Cholesterol 54 mg/dL (Normal) Comments: According to ATP-III Guidelines, HDL-C >59 mg/dL is considered anegative risk factor for CHD. Triglycerides 66 mg/dL (Normal) Range: 0-149 Cholesterol, Total 175 mg/dL (Normal) Range: 100-199 :42 PT (Prothrobim Time) Comments: STANDING ORDER; PATIENT NOT FASTINGPERFORMED BY: [place] [id number] [facility] [id number] Information: [id number] ([id number]) Prothrombin Time 30.1 {sec} (Abnormal) Range: 9.1-12.0 INR 2.9 (Abnormal) Range: 0.8-1.2 Comments: Reference interval is for non-anticoagulated patients. . Suggested INR therapeutic range for Vitamin K anta gonist therapy: Standard Dose (moderate intensity therapeutic range): 2.0 - 3.0 Higher intensity therapeutic range 2.5 - 3.5 :52 PT (Prothrobim Time) Comments: STANDING ORDER; PATIENT WAS FASTINGPERFORMED BY: [place] [id number] [facility] [id number] Information: [id number],2ND ORDER NO DRAW F EE ([id number]) Prothrombin Time 36.1 {sec} (Abnormal) Range: 9.1-12.0 INR 3.5 (Abnormal) Range: 0.8-1.2 Comments: Reference interval is for non-anticoagulated patients. . Suggested INR therapeutic range for Vitamin K anta gonist therapy: Standard Dose (moderate intensity therapeutic range): 2.0 - 3.0 Higher intensity therapeutic range 2.5 - 3.5 2-Dzs-059428:22 PT (Prothrobim Time) Comments: STANDING ORDER; PATIENT NOT FASTINGPERFORMED BY: [place] [id number] [facility] [id number] Information: [id number] ([id number]) Prothrombin Time 21.4 {sec} (Abnormal) Range: 9.1-12.0 INR 2.1 (Abnormal) Range: 0.8-1.2 Comments: Reference interval is for non-anticoagulated patients. . Suggested INR therapeutic range for Vitamin K anta gonist therapy: Standard Dose (moderate intensity therapeutic range): 2.0 - 3.0 Higher intensity therapeutic range 2.5 - 3.5 :02 PT (Prothrobim Time) Comments: STANDING ORDER; PATIENT NOT FASTINGPERFORMED BY: [place] [id number] [facility] [id number] Information: [id number] ([id number]) Prothrombin Time 27.9 {sec} (Abnormal) Range: 9.1-12.0 INR 2.7 (Abnormal) Range: 0.8-1.2 Comments: Reference interval is for non-anticoagulated patients. . Suggested INR therapeutic range for Vitamin K anta gonist therapy: Standard Dose (moderate intensity therapeutic range): 2.0 - 3.0 Higher intensity therapeutic range 2.5 - 3.5 38-Ywj-492900:08 PT (Prothrobim Time) Comments: STANDING ORDER; PATIENT NOT FASTINGPERFORMED BY: [place] [id number] [facility] [id number] Information: [id number] ([id number]) Prothrombin Time 28.7 {sec} (Abnormal) Range: 9.1-12.0 INR 2.8 (Abnormal) Range: 0.8-1.2 Comments: Reference interval is for non-anticoagulated patients. . Suggested INR therapeutic range for Vitamin K anta gonist therapy: Standard Dose (moderate intensity therapeutic range): 2.0 - 3.0 Higher intensity therapeutic range 2.5 - 3.5 :26 PT (Prothrobim Time) Comments: STANDING ORDER; PATIENT NOT FASTINGPERFORMED BY: [facility]6370 [facility] [id number] Information: [id number] ([id number]) Prothrombin Time 20.3 {sec} (Abnormal) Range: 9.1-12.0 INR 2.0 (Abnormal) Range: 0.8-1.2 Comments: Reference interval is for non-anticoagulated patients. . Suggested INR therapeutic range for Vitamin K anta gonist therapy: Standard Dose (moderate intensity therapeutic range): 2.0 - 3.0 Higher intensity therapeutic range 2.5 - 3.5 :39 PT (Prothrobim Time) Comments: STANDING ORDER; PATIENT NOT FASTINGPERFORMED BY: [facility] [id number] Information: [id number] ([id number]) Prothrombin Time 28.8 {sec} (Abnormal) Range: 9.1-12.0 INR 2.8 (Abnormal) Range: 0.8-1.2 Comments: Reference interval is for non-anticoagulated patients. . Suggested INR therapeutic range for Vitamin K anta gonist therapy: Standard Dose (moderate intensity therapeutic range): 2.0 - 3.0 Higher intensity therapeutic range 2.5 - 3.5 :36 PT (Prothrobim Time) Comments: STANDING ORDER; PATIENT NOT FASTINGPERFORMED BY: [facility]6[address] [facility] [id number] Information: [id number] ([id number]) Prothrombin Time 20.4 {sec} (Abnormal) Range: 9.1-12.0 INR 2.0 (Abnormal) Range: 0.8-1.2 Comments: Reference interval is for non-anticoagulated patients. . Suggested INR therapeutic range for Vitamin K anta gonist therapy: Standard Dose (moderate intensity therapeutic range): 2.0 - 3.0 Higher intensity therapeutic range 2.5 - 3.5 25-Tdj-212499:25 PT (Prothrobim Time) Comments: STANDING ORDER; PATIENT NOT FASTINGPERFORMED BY: [facility]6[address] [facility] [id number] Information: [id number] ([id number]) Prothrombin Time 27.7 {sec} (Abnormal) Range: 9.1-12.0 INR 2.7 (Abnormal) Range: 0.8-1.2 Comments: Reference interval is for non-anticoagulated patients. . Suggested INR therapeutic range for Vitamin K anta gonist therapy: Standard Dose (moderate intensity therapeutic range): 2.0 - 3.0 Higher intensity therapeutic range 2.5 - 3.5 :14 PT (Prothrobim Time) Comments: STANDING ORDER; PATIENT NOT FASTINGPERFORMED BY: [facility]6[address] [facility] [id number] Information: [id number] ([id number]) Prothrombin Time 35.7 {sec} (Abnormal) Range: 9.1-12.0 INR 3.5 (Abnormal) Range: 0.8-1.2 Comments: Reference interval is for non-anticoagulated patients. . Suggested INR therapeutic range for Vitamin K anta gonist therapy: Standard Dose (moderate intensity therapeutic range): 2.0 - 3.0 Higher intensity therapeutic range 2.5 - 3.5 :15 PT (Prothrobim Time) Comments: STANDING ORDER; PATIENT NOT FASTINGPERFORMED BY: [facility]6[address] [facility] [id number] Information: [id number] ([id number]) Prothrombin Time 25.8 {sec} (Abnormal) Range: 9.1-12.0 INR 2.5 (Abnormal) Range: 0.8-1.2 Comments: Reference interval is for non-anticoagulated patients. . Suggested INR therapeutic range for Vitamin K anta gonist therapy: Standard Dose (moderate intensity therapeutic range): 2.0 - 3.0 Higher intensity therapeutic range 2.5 - 3.5 :35 PT (Prothrobim Time) Comments: STANDING ORDER; PATIENT NOT FASTINGPERFORMED BY: [facility]6[address] [facility] [id number] Information: [id number] ([id number]) Prothrombin Time 19.5 {sec} (Abnormal) Range: 9.1-12.0 INR 1.9 (Abnormal) Range: 0.8-1.2 Comments: Reference interval is for non-anticoagulated patients. . Suggested INR therapeutic range for Vitamin K anta gonist therapy: Standard Dose (moderate intensity therapeutic range): 2.0 - 3.0 Higher intensity therapeutic range 2.5 - 3.5 :20 Metabolic Panel, Basic ([id number]) Comments: PATIENT WAS FASTINGPERFORMED BY: [facility]6[address] [facility] [id number] Calcium, Serum 9.4 mg/dL (Normal) Range: 8.6-10.2 Carbon Dioxide, Total 23 mmol/L (Normal) Range: 20-32 Chloride, Serum 103 mmol/L (Normal) Range: 97-108 Potassium, Serum 4.8 mmol/L (Normal) Range: 3.5-5.2 Sodium, Serum 142 mmol/L (Normal) Range: 134-144 BUN/Creatinine Ratio 10 (Normal) Range: 10-22 eGFR If Africn Am 107 mL/min/1.73 (Normal) eGFR If NonAfricn Am 93 mL/min/1.73 (Normal) Creatinine, Serum 0.84 mg/dL (Normal) Range: 0.76-1.27 BUN 8 mg/dL (Normal) Range: 8-27 Glucose, Serum 85 mg/dL (Normal) Range: 65-99 :20 T3, FREE (TRIDOTHYRONINE) ([id number]) Comments: PATIENT WAS FASTINGPERFORMED BY: [place] [id number] [facility] [id number] Triiodothyronine,Free,Serum 3.0 pg/mL (Normal) Range: 2.0-4.4 :20 Anti-TPO Antibody (10699) Comments: PATIENT WAS FASTINGPERFORMED BY: [address] [id number] Thyroid Peroxidase (TPO) Ab 28 {IU/mL} (Normal) Range: 0-34 :20 T4, FREE (46952) Comments: PATIENT WAS FASTINGPERFORMED BY: [address] [id number] T4,Free(Direct) 1.04 ng/dL (Normal) Range: 0.82-1.77 :20 CBC WITH MANUAL DIFF Comments: PATIENT WAS FASTINGPERFORMED BY: [address] [id number] Information: [id number] ([id number]) Immature Grans (Abs) 0.0 {x10E3/uL} (Normal) Range: 0.0-0.1 Immature Granulocytes 0 % (Normal) Range: 0-2 Baso (Absolute) 0.0 {x10E3/uL} (Normal) Range: 0.0-0.2 Eos (Absolute) 0.1 {x10E3/uL} (Normal) Range: 0.0-0.4 Monocytes(Absolute) 0.8 {x10E3/uL} (Normal) Range: 0.1-1.0 Lymphs (Absolute) 1.7 {x10E3/uL} (Normal) Range: 0.7-4.5 Neutrophils (Absolute) 3.5 {x10E3/uL} (Normal) Range: 1.8-7.8 Basos 0 % (Normal) Range: 0-3 Eos 2 % (Normal) Range: 0-7 Monocytes 12 % (Normal) Range: 4-13 Lymphs 27 % (Normal) Range: 14-46 Neutrophils 59 % (Normal) Range: 40-74 Platelets 256 {x10E3/uL} (Normal) Range: 140-415 RDW 13.2 % (Normal) Range: 12.3-15.4 MCHC 33.3 g/dL (Normal) Range: 31.5-35.7 MCH 29.1 pg (Normal) Range: 26.6-33.0 MCV 87 fL (Normal) Range: 79-97 Hematocrit 45.0 % (Normal) Range: 37.5-51.0 Hemoglobin 15.0 g/dL (Normal) Range: 12.6-17.7 RBC 5.15 {x10E6/uL} (Normal) Range: 4.14-5.80 WBC 6.0 {x10E3/uL} (Normal) Range: 4.0-10.5 :20 TSH ([id number]) Comments: PATIENT WAS FASTINGPERFORMED BY: [facility]At[facility] [id number] TSH 4.070 {uIU/mL} (Normal) Range: 0.450-4.500 :21 PT (Prothrobim Time) Comments: STANDING ORDER; PATIENT NOT FASTINGPERFORMED BY: VMTurboCorp Wifi OnlineAtrium [facility] [id number] Information: [id number] ORDER NO DRAW F EE ([id number]) Prothrombin Time 21.2 {sec} (Abnormal) Range: 9.1-12.0 INR 2.0 (Abnormal) Range: 0.8-1.2 Comments: Reference interval is for non-anticoagulated patients. . Suggested INR therapeutic range for Vitamin K anta gonist therapy: Standard Dose (moderate intensity therapeutic range): 2.0 - 3.0 Higher intensity therapeutic range 2.5 - 3.5 :58 Prothrombin Time (PT) Comments: PATIENT WAS FASTINGPERFORMED BY: [employer]70 [facility] SolutionsAt[facility] [id number] Prothrombin Time 21.4 {sec} (Abnormal) Range: 9.1-12.0 INR 2.1 (Abnormal) Range: 0.8-1.2 Comments: Reference interval is for non-anticoagulated patients. . Suggested INR therapeutic range for Vitamin K anta gonist therapy: Standard Dose (moderate intensity therapeutic range): 2.0 - 3.0 Higher intensity therapeutic range 2.5 - 3.5 :58 Prostate-Specific Ag, Serum Comments: PATIENT WAS FASTINGPERFORMED BY: [employer]6370 [facility] SolutionsAt[facility] [id number] Prostate Specific Ag, 0.7 ng/mL (Normal) Range: 0.0-4.0 Serum Comments: [employer] ECLIA methodology. .According to the [place] [employer], Serum PSA shoulddecrease and remain at undetectable levels after radicalprostatectomy. The AUA defines biochemical recurrence as an initialPSA value 0.2 ng/mL or greater followed by a subsequent confirmatoryPSA value 0.2 ng/mL or greater.Values obtained with d ifferent assay methods or kits cannot be usedinterchangeably. Results cannot be interpreted as absolute evidenceof the presence or absence of malignant disease. :58 Lipid Panel With LDL/HDL Comments: PATIENT WAS FASTINGPERFORMED BY: [employer] Wwcnjz2591 Enprise SolutionsAt[facility] [id number] Ratio LDL/HDL Ratio 2.2 {ratio_units} (Normal) Range: 0.0-3.6 LDL Cholesterol Calc 106 mg/dL (Abnormal) Range: 0-99 Comments: Please note reference interval change VLDL Cholesterol Lisa 17 mg/dL (Normal) Range: 5-40 HDL Cholesterol 49 mg/dL (Normal) Comments: According to ATP-III Guidelines, HDL-C >59 mg/dL is considered anegative risk factor for CHD. Triglycerides 85 mg/dL (Normal) Range: 0-149 Comments: Please note reference interval change Cholesterol, Total 172 mg/dL (Normal) Range: 100-199 Comments: Please note reference interval change :58 Urinalysis, Routine Comments: PATIENT WAS FASTINGPERFORMED BY: [employer] Replay SolutionsECU Health [id number] Microscopic Examination MICRON (Normal) Comments: Microscopic follows if indicated. Nitrite, Urine Negative (Normal) Urobilinogen,Semi-Qn 0.2 mg/dL (Normal) Range: 0.0-1.9 Bilirubin Negative (Normal) Occult Blood Negative (Normal) Ketones Negative (Normal) Glucose Negative (Normal) Protein Negative (Normal) WBC Esterase Negative (Normal) Appearance Clear (Normal) Urine-Color Yellow (Normal) pH 6.5 (Normal) Range: 5.0-7.5 Specific [place] 1.017 (Normal) Range: 1.005-1.030 :58 CBC With Differential/Platelet Comments: PATIENT WAS FASTINGPERFORMED BY: [employer]6370 [facility] [id number] Immature Grans (Abs) 0.0 {x10E3/uL} Range: 0.0-0.1 (Normal) Immature Granulocytes 0 % (Normal) Range: 0-2 Baso (Absolute) 0.0 {x10E3/uL} Range: 0.0-0.2 (Normal) Eos (Absolute) 0.2 {x10E3/uL} Range: 0.0-0.4 (Normal) Monocytes(Absolute) 0.9 {x10E3/uL} Range: 0.1-1.0 (Normal) Lymphs (Absolute) 1.8 {x10E3/uL} Range: 0.7-4.5 (Normal) Neutrophils (Absolute) 9.1 {x10E3/uL} Range: 1.8-7.8 (Abnormal) Basos 0 % (Normal) Range: 0-3 Eos 1 % (Normal) Range: 0-7 Monocytes 8 % (Normal) Range: 4-13 Lymphs 15 % (Normal) Range: 14-46 Neutrophils 76 % (Abnormal) Range: 40-74 Platelets 270 {x10E3/uL} Range: 140-415 (Normal) RDW 13.3 % (Normal) Range: 12.3-15.4 MCHC 33.6 g/dL (Normal) Range: 31.5-35.7 MCH 29.6 pg (Normal) Range: 26.6-33.0 MCV 88 fL (Normal) Range: 79-97 Hematocrit 45.9 % (Normal) Range: 37.5-51.0 Hemoglobin 15.4 g/dL (Normal) Range: 12.6-17.7 RBC 5.21 {x10E6/uL} Range: 4.14-5.80 (Normal) WBC 12.0 {x10E3/uL} Range: 4.0-10.5 (Abnormal) 01-Apr-2012 TSH 4.780 {uIU/mL} Comments: PATIENT WAS FASTINGPERFORMED BY: LabCoHackettstown Medical CenterMyzehn8603 [facility] [id number] 14:58 (Abnormal) Range: 0.450-4.500 29-Oqd-266483:58 Comp. Metabolic Panel (14) Comments: PATIENT WAS FASTINGPERFORMED BY: LabCoHackettstown Medical CenterObfdep2195 [facility] [id number] ALT (SGPT) 28 [iU]/L (Normal) Range: 0-55 AST (SGOT) 34 [iU]/L (Normal) Range: 0-40 Alkaline Phosphatase, S 102 [iU]/L (Normal) Range: 25-160 Bilirubin, Total 0.9 mg/dL (Normal) Range: 0.0-1.2 A/G Ratio 1.4 (Normal) Range: 1.1-2.5 Globulin, Total 3.3 g/dL (Normal) Range: 1.5-4.5 Albumin, Serum 4.5 g/dL (Normal) Range: 3.6-4.8 Protein, Total, Serum 7.8 g/dL (Normal) Range: 6.0-8.5 Calcium, Serum 9.5 mg/dL (Normal) Range: 8.6-10.2 Carbon Dioxide, Total 24 mmol/L (Normal) Range: 20-32 Chloride, Serum 103 mmol/L (Normal) Range: 97-108 Potassium, Serum 5.5 mmol/L (Abnormal) Range: 3.5-5.2 Sodium, Serum 142 mmol/L (Normal) Range: 134-144 BUN/Creatinine Ratio 14 (Normal) Range: 10-22 eGFR If Africn Am 106 mL/min/1.73 (Normal) eGFR If NonAfricn Am 92 mL/min/1.73 (Normal) Creatinine, Serum 0.86 mg/dL (Normal) Range: 0.76-1.27 BUN 12 mg/dL (Normal) Range: 8-27 Glucose, Serum 87 mg/dL (Normal) Range: 65-99 :59 PT (PROTHROMBIN TIME) Comments: PATIENT NOT FASTINGPERFORMED BY: [place] [id number] [facility] [id number] Information: [id number] ([id number]) Prothrombin Time 22.9 {sec} (Abnormal) Range: 9.1-12.0 INR 2.2 (Abnormal) Range: 0.8-1.2 Comments: Reference interval is for non-anticoagulated patients. . Suggested INR therapeutic range for Vitamin K anta gonist therapy: Standard Dose (moderate intensity therapeutic range): 2.0 - 3.0 Higher intensity therapeutic range 2.5 - 3.5 :32 PT (PROTHROMBIN TIME) Comments: PATIENT NOT FASTINGPERFORMED BY: [facility]6[address] [facility] [id number] Information: [id number] ([id number]) Prothrombin Time 26.6 {sec} (Abnormal) Range: 9.1-12.0 INR 2.5 (Abnormal) Range: 0.8-1.2 Comments: Reference interval is for non-anticoagulated patients. . Suggested INR therapeutic range for Vitamin K anta gonist therapy: Standard Dose (moderate intensity therapeutic range): 2.0 - 3.0 Higher intensity therapeutic range 2.5 - 3.5 :56 PT (PROTHROMBIN TIME) ([id number]) Comments: PATIENT NOT FASTINGPERFORMED BY: [facility]6[address] [facility] [id number] Prothrombin Time 26.6 {sec} (Abnormal) Range: 9.1-12.0 INR 2.5 (Abnormal) Range: 0.8-1.2 Comments: Reference interval is for non-anticoagulated patients. . Suggested INR therapeutic range for Vitamin K anta gonist therapy: Standard Dose (moderate intensity therapeutic range): 2.0 - 3.0 Higher intensity therapeutic range 2.5 - 3.5 :23 PT (PROTHROMBIN TIME) Comments: PATIENT NOT FASTINGPERFORMED BY: [place] [id number] [facility] [id number] Information: [id number] ([id number]) Prothrombin Time 27.7 {sec} (Abnormal) Range: 9.1-12.0 INR 2.6 (Abnormal) Range: 0.8-1.2 Comments: Reference interval is for non-anticoagulated patients. . Suggested INR therapeutic range for Vitamin K anta gonist therapy: Standard Dose (moderate intensity therapeutic range): 2.0 - 3.0 Higher intensity therapeutic range 2.5 - 3.5 :48 PT (PROTHROMBIN TIME) Comments: PATIENT NOT FASTINGPERFORMED BY: [place] [id number] [facility] [id number] Information: [id number] ([id number]) Prothrombin Time 35.3 {sec} (Abnormal) Range: 9.1-12.0 INR 3.4 (Abnormal) Range: 0.8-1.2 Comments: Reference interval is for non-anticoagulated patients. . Suggested INR therapeutic range for Vitamin K anta gonist therapy: Standard Dose (moderate intensity therapeutic range): 2.0 - 3.0 Higher intensity therapeutic range 2.5 - 3.5 :55 PT (PROTHROMBIN TIME) Comments: PATIENT NOT FASTINGPERFORMED BY: [facility]6370 [facility] [id number] Information: [id number] ([id number]) Prothrombin Time 16.7 {sec} (Abnormal) Range: 9.1-12.0 INR 1.6 (Abnormal) Range: 0.8-1.2 Comments: Reference interval is for non-anticoagulated patients. . Suggested INR therapeutic range for Vitamin K anta gonist therapy: Standard Dose (moderate intensity therapeutic range): 2.0 - 3.0 Higher intensity therapeutic range 2.5 - 3.5 :38 PT (PROTHROMBIN TIME) Comments: PATIENT NOT FASTINGPERFORMED BY: [place] [id number] [facility] [id number] Information: [id number] ([id number]) Prothrombin Time 19.1 {sec} (Abnormal) Range: 9.1-12.0 INR 1.8 (Abnormal) Range: 0.8-1.2 Comments: Reference interval is for non-anticoagulated patients. . Suggested INR therapeutic range for Vitamin K anta gonist therapy: Standard Dose (moderate intensity therapeutic range): 2.0 - 3.0 Higher intensity therapeutic range 2.5 - 3.5 08-Bji-105544:10 PT (PROTHROMBIN TIME) Comments: PATIENT NOT FASTINGPERFORMED BY: [place] [id number] [facility] [id number] Information: [id number] ([id number]) Prothrombin Time 18.8 {sec} (Abnormal) Range: 9.1-12.0 INR 1.8 (Abnormal) Range: 0.8-1.2 Comments: Reference interval is for non-anticoagulated patients. . Suggested INR therapeutic range for Vitamin K anta gonist therapy: Standard Dose (moderate intensity therapeutic range): 2.0 - 3.0 Higher intensity therapeutic range 2.5 - 3.5 :36 PT (PROTHROMBIN TIME) Comments: PATIENT NOT FASTINGPERFORMED BY: [facility]6370 [facility] [id number] Information: [id number] ([id number]) Prothrombin Time 21.3 {sec} (Abnormal) Range: 9.1-12.0 INR 2.0 (Abnormal) Range: 0.8-1.2 Comments: Reference interval is for non-anticoagulated patients. . Suggested INR therapeutic range for Vitamin K anta gonist therapy: Standard Dose (moderate intensity therapeutic range): 2.0 - 3.0 Higher intensity therapeutic range 2.5 - 3.5 :04 Prothrombin Time (PT) Comments: PATIENT NOT FASTINGPERFORMED BY: [facility]6370 [facility] [id number] Prothrombin Time 39.8 {sec} (Abnormal) Range: 9.1-12.0 INR 3.8 (Abnormal) Range: 0.8-1.2 Comments: Client Requested Flag Reference interval is for non- anticoagulated patients. . Suggested INR therapeutic ra nge for Vitamin K antagonist therapy: Standard Dose (moderate intensity therapeutic range): 2.0 - 3.0 Higher intensity therapeutic range 2.5 - 3.5 :32 PT (PROTHROMBIN TIME) Comments: PATIENT NOT FASTINGPERFORMED BY: [facility]6370 [facility] [id number] Information: [id number] ([id number]) Prothrombin Time 32.0 {sec} (Abnormal) Range: 9.1-12.0 INR 3.0 (Abnormal) Range: 0.8-1.2 Comments: Reference interval is for non-anticoagulated patients. . Suggested INR therapeutic range for Vitamin K anta gonist therapy: Standard Dose (moderate intensity therapeutic range): 2.0 - 3.0 Higher intensity therapeutic range 2.5 - 3.5 :10 PT (PROTHROMBIN TIME) Comments: PATIENT NOT FASTINGPERFORMED BY: [facility]6370 [facility] [id number] Information: [id number] ([id number]) Prothrombin Time 29.8 {sec} (Abnormal) Range: 9.1-12.0 Comments: Please note reference interval change INR 2.8 (Abnormal) Range: 0.8-1.2 Comments: Reference interval is for non-anticoagulated patients. . Suggested INR therapeutic range for Vitamin K anta gonist therapy: Standard Dose (moderate intensity therapeutic range): 2.0 - 3.0 Higher intensity therapeutic range 2.5 - 3.5 :31 PT (PROTHROMBIN TIME) Comments: PATIENT NOT FASTINGPERFORMED BY: [place] [id number] [facility] [id number] Information: [id number] ([id number]) Prothrombin Time 35.4 {sec} (Abnormal) Range: 9.1-12.0 Comments: Please note reference interval change INR 3.4 (Abnormal) Range: 0.8-1.2 Comments: Reference interval is for non-anticoagulated patients. . Suggested INR therapeutic range for Vitamin K anta gonist therapy: Standard Dose (moderate intensity therapeutic range): 2.0 - 3.0 Higher intensity therapeutic range 2.5 - 3.5 :32 PT (PROTHROMBIN TIME) ([id number]) Comments: PATIENT WAS FASTINGPERFORMED BY: [facility]6[address] [facility] [id number] Prothrombin Time 30.0 {sec} (Abnormal) Range: 9.1-12.0 Comments: Please note reference interval change INR 2.8 (Abnormal) Range: 0.8-1.2 Comments: Reference interval is for non-anticoagulated patients. . Suggested INR therapeutic range for Vitamin K anta gonist therapy: Standard Dose (moderate intensity therapeutic range): 2.0 - 3.0 Higher intensity therapeutic range 2.5 - 3.5 :32 LIPID PANEL (86445) Comments: PATIENT WAS FASTINGPERFORMED BY: [facility]MTurboTr[facility]6370 [facility] [id number] LDL/HDL Ratio 2.5 {ratio_units} (Normal) Range: 0.0-3.6 LDL Cholesterol Calc 98 mg/dL (Normal) Range: 0-99 VLDL Cholesterol Lisa 23 mg/dL (Normal) Range: 5-40 HDL Cholesterol 40 mg/dL (Normal) Comments: According to ATP-III Guidelines, HDL-C >59 mg/dL is considered anegative risk factor for CHD. Cholesterol, Total 161 mg/dL (Normal) Range: 100-199 Triglycerides 116 mg/dL (Normal) Range: 0-149 :32 URINALYSIS (04603) Comments: PATIENT WAS FASTINGPERFORMED BY: [place] [id number] [facility] [id number] Microscopic Examination MICRON (Normal) Comments: Microscopic follows if indicated. Nitrite, Urine Negative (Normal) Urobilinogen,Semi-Qn 0.2 mg/dL (Normal) Range: 0.0-1.9 Bilirubin Negative (Normal) Occult Blood Negative (Normal) Ketones Negative (Normal) Glucose Negative (Normal) Protein Negative (Normal) WBC Esterase Negative (Normal) Appearance Clear (Normal) Urine-Color Yellow (Normal) pH 7.0 (Normal) Range: 5.0-7.5 Specific [place] 1.020 (Normal) Range: 1.005-1.030 28-Aug-20119:32 METABOLIC PANEL, COMPREHENSIVE Comments: PATIENT WAS FASTINGPERFORMED BY: [facility] Badteb5585 [facility] [id number] ([id number]) ALT (SGPT) 36 [iU]/L (Normal) Range: 0-55 AST (SGOT) 39 [iU]/L (Normal) Range: 0-40 Alkaline Phosphatase, S 97 [iU]/L (Normal) Range: 25-160 Bilirubin, Total 0.6 mg/dL (Normal) Range: 0.0-1.2 A/G Ratio 1.3 (Normal) Range: 1.1-2.5 Globulin, Total 3.2 g/dL (Normal) Range: 1.5-4.5 Albumin, Serum 4.3 g/dL (Normal) Range: 3.6-4.8 Protein, Total, Serum 7.5 g/dL (Normal) Range: 6.0-8.5 Calcium, Serum 9.3 mg/dL (Normal) Range: 8.6-10.2 Carbon Dioxide, Total 25 mmol/L (Normal) Range: 20-32 Chloride, Serum 103 mmol/L (Normal) Range: 97-108 Potassium, Serum 5.2 mmol/L (Normal) Range: 3.5-5.2 Sodium, Serum 140 mmol/L (Normal) Range: 134-144 BUN/Creatinine Ratio 23 (Abnormal) Range: 10-22 eGFR If Africn Am 110 mL/min/1.73 (Normal) Comments: Note: A persistent eGFR <60 mL/min/1.73 m2 (3 months or more) mayindicate chronic kidney disease. An eGFR >59 mL/min/1.73 m2 with anelevated urine protein also may indicate chronic kidney disease.Calculated using CKD-EPI formula. eGFR If NonAfricn Am 96 mL/min/1.73 (Normal) Creatinine, Serum 0.79 mg/dL (Normal) Range: 0.76-1.27 BUN 18 mg/dL (Normal) Range: 8-27 Glucose, Serum 86 mg/dL (Normal) Range: 65-99 :32 CBC with manual diff Comments: PATIENT WAS FASTINGPERFORMED BY: [facility]Tr[facility]6370 [facility] [id number] Information: [id number] ([id number]) Immature Grans (Abs) 0.0 {x10E3/uL} (Normal) Range: 0.0-0.1 Immature Granulocytes 0 % (Normal) Range: 0-2 Baso (Absolute) 0.0 {x10E3/uL} (Normal) Range: 0.0-0.2 Eos (Absolute) 0.2 {x10E3/uL} (Normal) Range: 0.0-0.4 Monocytes(Absolute) 0.9 {x10E3/uL} (Normal) Range: 0.1-1.0 Lymphs (Absolute) 1.9 {x10E3/uL} (Normal) Range: 0.7-4.5 Neutrophils (Absolute) 4.6 {x10E3/uL} (Normal) Range: 1.8-7.8 Basos 0 % (Normal) Range: 0-3 Eos 2 % (Normal) Range: 0-7 Monocytes 12 % (Normal) Range: 4-13 Lymphs 25 % (Normal) Range: 14-46 Neutrophils 61 % (Normal) Range: 40-74 Platelets 277 {x10E3/uL} (Normal) Range: 140-415 RDW 13.3 % (Normal) Range: 11.7-15.0 MCHC 32.5 g/dL (Normal) Range: 32.0-36.0 MCH 29.4 pg (Normal) Range: 27.0-34.0 MCV 90 fL (Normal) Range: 80-98 Hematocrit 44.9 % (Normal) Range: 36.0-50.0 Hemoglobin 14.6 g/dL (Normal) Range: 12.5-17.0 RBC 4.97 {x10E6/uL} (Normal) Range: 4.10-5.60 WBC 7.5 {x10E3/uL} (Normal) Range: 4.0-10.5 :37 PT (PROTHROMBIN TIME) Comments: PATIENT NOT FASTINGPERFORMED BY: [place] [id number] [facility] [id number] Information: [id number] ([id number]) Prothrombin Time 27.4 {sec} (Abnormal) Range: 9.1-12.0 Comments: Please note reference interval change INR 2.6 (Abnormal) Range: 0.8-1.2 Comments: Reference interval is for non-anticoagulated patients. . Suggested INR therapeutic range for Vitamin K anta gonist therapy: Standard Dose (moderate intensity therapeutic range): 2.0 - 3.0 Higher intensity therapeutic range 2.5 - 3.5 :45 PT (PROTHROMBIN TIME) Comments: PATIENT NOT FASTINGPERFORMED BY: [place] [id number] [facility] [id number] Information: [id number] ([id number]) Prothrombin Time 25.0 {sec} (Abnormal) Range: 9.1-12.0 Comments: Please note reference interval change INR 2.4 (Abnormal) Range: 0.8-1.2 Comments: Reference interval is for non-anticoagulated patients. . Suggested INR therapeutic range for Vitamin K anta gonist therapy: Standard Dose (moderate intensity therapeutic range): 2.0 - 3.0 Higher intensity therapeutic range 2.5 - 3.5 :44 PT (PROTHROMBIN TIME) Comments: PATIENT NOT FASTINGPERFORMED BY: [place] [id number] [facility] [id number] Information: [id number] ([id number]) Prothrombin Time 19.4 {sec} (Abnormal) Range: 9.1-12.0 Comments: Please note reference interval change INR 1.8 (Abnormal) Range: 0.8-1.2 Comments: Reference interval is for non-anticoagulated patients. . Suggested INR therapeutic range for Vitamin K anta gonist therapy: Standard Dose (moderate intensity therapeutic range): 2.0 - 3.0 Higher intensity therapeutic range 2.5 - 3.5 [id number]-Avc-[id number]:23 PT (PROTHROMBIN TIME) Comments: PATIENT NOT FASTINGPERFORMED BY: [facility]6[address] [facility] [id number] Information: [id number] ([id number]) Prothrombin Time 22.9 {sec} (Abnormal) Range: 9.1-12.0 Comments: Please note reference interval change INR 2.2 (Abnormal) Range: 0.8-1.2 Comments: Reference interval is for non-anticoagulated patients. . Suggested INR therapeutic range for Vitamin K anta gonist therapy: Standard Dose (moderate intensity therapeutic range): 2.0 - 3.0 Higher intensity therapeutic range 2.5 - 3.5 99-Nmo-119692:01 PT (PROTHROMBIN TIME) Comments: PATIENT NOT FASTINGPERFORMED BY: [facility]6[address] [facility] [id number] Information: [id number] ([id number]) Prothrombin Time 32.2 {sec} (Abnormal) Range: 9.1-12.0 Comments: Please note reference interval change INR 3.1 (Abnormal) Range: 0.8-1.2 Comments: Reference interval is for non-anticoagulated patients. . Suggested INR therapeutic range for Vitamin K anta gonist therapy: Standard Dose (moderate intensity therapeutic range): 2.0 - 3.0 Higher intensity therapeutic range 2.5 - 3.5 :00 PT (PROTHROMBIN TIME) ([id number]) Comments: PATIENT NOT FASTINGPERFORMED BY: [facility]6[address] [facility] [id number] Prothrombin Time 29.5 {sec} (Abnormal) Range: 8.7-11.5 Comments: Effective June 10, 2011, the reference interval will be changing to: 9.1 - 12.0 INR 2.8 (Abnormal) Range: 0.8-1.2 Comments: Reference interval is for non-anticoagulated patients. . Suggested INR therapeutic range for Vitamin K anta gonist therapy: Standard Dose (moderate intensity therapeutic range): 2.0 - 3.0 Higher intensity therapeutic range 2.5 - 3.5 07-Kqe-156379:06 PT (PROTHROMBIN TIME) Comments: PATIENT NOT FASTINGPERFORMED BY: [place] [id number] [facility] [id number] Information: [id number] ([id number]) Prothrombin Time 23.6 {sec} (Abnormal) Range: 8.7-11.5 Comments: Effective June 10, 2011, the reference interval will be changing to: 9.1 - 12.0 INR 2.2 (Abnormal) Range: 0.8-1.2 Comments: Reference interval is for non-anticoagulated patients. . Suggested INR therapeutic range for Vitamin K anta gonist therapy: Standard Dose (moderate intensity therapeutic range): 2.0 - 3.0 Higher intensity therapeutic range 2.5 - 3.5 98-Llk-08796:27 PT (PROTHROMBIN TIME) Comments: PATIENT NOT FASTINGPERFORMED BY: [facility]6[address] [facility] [id number] Information: [id number] ([id number]) Prothrombin Time 17.5 {sec} (Abnormal) Range: 8.7-11.5 Comments: Effective June 10, 2011, the reference interval will be changing to: 9.1 - 12.0 INR 1.6 (Abnormal) Range: 0.8-1.2 Comments: Reference interval is for non-anticoagulated patients. . Suggested INR therapeutic range for Vitamin K anta gonist therapy: Standard Dose (moderate intensity therapeutic range): 2.0 - 3.0 Higher intensity therapeutic range 2.5 - 3.5 :38 PT (PROTHROMBIN TIME) Comments: PATIENT NOT FASTINGPERFORMED BY: [place] [id number] [facility] [id number] Information: [id number] ([id number]) Prothrombin Time 13.0 {sec} (Abnormal) Range: 8.7-11.5 Comments: Effective June 10, 2011, the reference interval will be changing to: 9.1 - 12.0 INR 1.2 (Normal) Range: 0.8-1.2 Comments: Reference interval is for non-anticoagulated patients. . Suggested INR therapeutic range for Vitamin K anta gonist therapy: Standard Dose (moderate intensity therapeutic range): 2.0 - 3.0 Higher intensity therapeutic range 2.5 - 3.5 :46 PT (PROTHROMBIN TIME) Comments: PATIENT NOT FASTINGPERFORMED BY: [facility]6[address] [facility] [id number] Information: [id number] ([id number]) Prothrombin Time 12.4 {sec} (Abnormal) Range: 8.7-11.5 INR 1.2 (Normal) Range: 0.8-1.2 Comments: Reference interval is for non-anticoagulated patients. . Suggested INR therapeutic range for Vitamin K anta gonist therapy: Standard Dose (moderate intensity therapeutic range): 2.0 - 3.0 Higher intensity therapeutic range 2.5 - 3.5 :18 Prothrombin Time (PT) Comments: PERFORMED BY: [facility]6[address] [facility] [id number] Prothrombin Time 12.5 {sec} (Abnormal) Range: 8.7-11.5 INR 1.2 (Normal) Range: 0.8-1.2 Comments: Reference interval is for non-anticoagulated patients. . Suggested INR therapeutic range for Vitamin K anta gonist therapy: Standard Dose (moderate intensity therapeutic range): 2.0 - 3.0 Higher intensity therapeutic range 2.5 - 3.5 :42 PT (PROTHROMBIN TIME) Comments: PATIENT NOT FASTINGPERFORMED BY: [facility]6[address] [facility] [id number] Information: [id number] ([id number]) Prothrombin Time 14.2 {sec} (Abnormal) Range: 8.7-11.5 INR 1.3 (Abnormal) Range: 0.8-1.2 Comments: Reference interval is for non-anticoagulated patients. . Suggested INR therapeutic range for Vitamin K anta gonist therapy: Standard Dose (moderate intensity therapeutic range): 2.0 - 3.0 Higher intensity therapeutic range 2.5 - 3.5 :15 PT (PROTHROMBIN TIME) Comments: PATIENT NOT FASTINGPERFORMED BY: [facility]6[address] [facility] [id number] Information: [id number] ([id number]) Prothrombin Time 42.3 {sec} (Abnormal) Range: 8.7-11.5 INR 4.0 (Abnormal) Range: 0.8-1.2 Comments: Client Requested Flag Reference interval is for non- anticoagulated patients. . Suggested INR therapeutic ra nge for Vitamin K antagonist therapy: Standard Dose (moderate intensity therapeutic range): 2.0 - 3.0 Higher intensity therapeutic range 2.5 - 3.5 69-Hzp-00336:29 FECAL OCCULT- Tubes sent home ([id number]) FECAL OCCULT HGB ASSAY, QUAL, 1-3 SIMULTANEOU neg (Normal) 13-Edk-551637:04 Microscopic Examination Comments: PATIENT WAS FASTINGPERFORMED BY: [place] [id number] [facility] [id number] Bacteria None seen (Normal) Mucus Threads Present (Normal) Epithelial Cells (non renal) None seen {/hpf} (Normal) Range: 0 - 10 RBC 0-3 {/hpf} (Normal) Range: 0 - 3 WBC 0-5 {/hpf} (Normal) Range: 0 - 5 98-Qft-808701:03 PT (PROTHROMBIN TIME) Comments: PATIENT NOT FASTINGPERFORMED BY: [facility]6[address] [facility] [id number] Information: [id number] ([id number]) Prothrombin Time 22.4 {sec} (Abnormal) Range: 8.7-11.5 INR 2.1 (Abnormal) Range: 0.8-1.2 Comments: Reference interval is for non-anticoagulated patients. . Suggested INR therapeutic range for Vitamin K anta gonist therapy: Standard Dose (moderate intensity therapeutic range): 2.0 - 3.0 Higher intensity therapeutic range 2.5 - 3.5 17-Amy-496710:52 PT (PROTHROMBIN TIME) Comments: PATIENT NOT FASTINGPERFORMED BY: [facility]6[address] [facility] [id number] Information: [id number] ([id number]) Prothrombin Time 22.2 {sec} (Abnormal) Range: 8.7-11.5 INR 2.1 (Abnormal) Range: 0.8-1.2 Comments: Reference interval is for non-anticoagulated patients. . Suggested INR therapeutic range for Vitamin K anta gonist therapy: Standard Dose (moderate intensity therapeutic range): 2.0 - 3.0 Higher intensity therapeutic range 2.5 - 3.5 :42 PT (PROTHROMBIN TIME) ([id number]) Comments: PATIENT NOT FASTINGPERFORMED BY: iiyumaHackettstown Medical CenterHbwkox6818 [facility] [id number] Prothrombin Time 26.5 {sec} (Abnormal) Range: 8.7-11.5 INR 2.5 (Abnormal) Range: 0.8-1.2 Comments: Reference interval is for non-anticoagulated patients. . Suggested INR therapeutic range for Vitamin K anta gonist therapy: Standard Dose (moderate intensity therapeutic range): 2.0 - 3.0 Higher intensity therapeutic range 2.5 - 3.5 :12 Prothrombin Time (PT) Comments: PERFORMED BY: iiyumaHackettstown Medical CenterIvaysa0780 [facility] [id number] Prothrombin Time 31.6 {sec} (Abnormal) Range: 8.7-11.5 INR 3.0 (Abnormal) Range: 0.8-1.2 Comments: Reference interval is for non-anticoagulated patients. . Suggested INR therapeutic range for Vitamin K anta gonist therapy: Standard Dose (moderate intensity therapeutic range): 2.0 - 3.0 Higher intensity therapeutic range 2.5 - 3.5 :39 PT (PROTHROMBIN TIME) Comments: PATIENT NOT FASTINGPERFORMED BY: [facility]6[address] [facility] [id number] Information: [id number] ([id number]) Prothrombin Time 22.6 {sec} (Abnormal) Range: 8.7-11.5 INR 2.1 (Abnormal) Range: 0.8-1.2 Comments: Reference interval is for non-anticoagulated patients. . Suggested INR therapeutic range for Vitamin K anta gonist therapy: Standard Dose (moderate intensity therapeutic range): 2.0 - 3.0 Higher intensity therapeutic range 2.5 - 3.5 18-Xkp-90889:58 Prothrombin Time (PT) Comments: PERFORMED BY: iiyuma Yguxda3813 [facility] [id number] Prothrombin Time 47.1 {sec} (Abnormal) Range: 8.7-11.5 INR 4.4 (Abnormal) Range: 0.8-1.2 Comments: Client Requested Flag Reference interval is for non- anticoagulated patients. . Suggested INR therapeutic ra nge for Vitamin K antagonist therapy: Standard Dose (moderate intensity therapeutic range): 2.0 - 3.0 Higher intensity therapeutic range 2.5 - 3.5 00-Dlq-383105:15 Prothrombin Time (PT) Comments: PERFORMED BY: iiyuma Zgggaf6800 [facility] [id number] Prothrombin Time 24.8 {sec} (Abnormal) Range: 8.7-11.5 INR 2.3 (Abnormal) Range: 0.8-1.2 Comments: Reference interval is for non-anticoagulated patients. . Suggested INR therapeutic range for Vitamin K anta gonist therapy: Standard Dose (moderate intensity therapeutic range): 2.0 - 3.0 Higher intensity therapeutic range 2.5 - 3.5 65-Yml-209615:04 URINALYSIS, W/ MICRO ([id number]) Comments: PATIENT WAS FASTINGPERFORMED BY: iiyuma Nvotat3698 [facility] [id number] Microscopic Examination See below: (Normal) Microscopic Examination MICRON (Normal) Comments: Microscopic follows if indicated. Nitrite, Urine Negative (Normal) Urobilinogen,Semi-Qn 0.2 mg/dL (Normal) Range: 0.0-1.9 Bilirubin Negative (Normal) Occult Blood Negative (Normal) Ketones Negative (Normal) Glucose Negative (Normal) Protein Negative (Normal) WBC Esterase Negative (Normal) Appearance Clear (Normal) Urine-Color Yellow (Normal) pH 6.5 (Normal) Range: 5.0-7.5 Specific [place] 1.021 (Normal) Range: 1.005-1.030 87-Ymx-943427:04 CBC WITH MANUAL DIFF Comments: PATIENT WAS FASTINGPERFORMED BY: [facility]MTurboTr[facility]6370 [facility] [id number] Information: [id number], 2ND ORDER NO DRAW FEE ([id number]) Immature Grans (Abs) 0.0 {x10E3/uL} (Normal) Range: 0.0-0.1 Immature Granulocytes 0 % (Normal) Range: 0-2 Comments: Please note reference interval change Baso (Absolute) 0.0 {x10E3/uL} (Normal) Range: 0.0-0.2 Eos (Absolute) 0.2 {x10E3/uL} (Normal) Range: 0.0-0.4 Monocytes(Absolute) 0.8 {x10E3/uL} (Normal) Range: 0.1-1.0 Lymphs (Absolute) 1.8 {x10E3/uL} (Normal) Range: 0.7-4.5 Neutrophils (Absolute) 4.7 {x10E3/uL} (Normal) Range: 1.8-7.8 Basos 0 % (Normal) Range: 0-3 Eos 2 % (Normal) Range: 0-7 Monocytes 10 % (Normal) Range: 4-13 Lymphs 25 % (Normal) Range: 14-46 Neutrophils 63 % (Normal) Range: 40-74 Platelets 255 {x10E3/uL} (Normal) Range: 140-415 RDW 13.4 % (Normal) Range: 11.7-15.0 MCHC 34.0 g/dL (Normal) Range: 32.0-36.0 MCH 30.5 pg (Normal) Range: 27.0-34.0 MCV 90 fL (Normal) Range: 80-98 Hematocrit 43.8 % (Normal) Range: 36.0-50.0 Hemoglobin 14.9 g/dL (Normal) Range: 12.5-17.0 RBC 4.88 {x10E6/uL} (Normal) Range: 4.10-5.60 WBC 7.5 {x10E3/uL} (Normal) Range: 4.0-10.5 03-Tcs-741355:04 LIPID PANEL ([id number]) Comments: PATIENT WAS FASTINGPERFORMED BY: LabCoHackettstown Medical CenterIyljgy3483 [facility] [id number] LDL Cholesterol Calc 92 mg/dL (Normal) Range: 0-99 LDL/HDL Ratio 2.1 {ratio_units} (Normal) Range: 0.0-3.6 VLDL Cholesterol Lisa 19 mg/dL (Normal) Range: 5-40 HDL Cholesterol 44 mg/dL (Normal) Comments: According to ATP-III Guidelines, HDL-C >59 mg/dL is considered anegative risk factor for CHD. Triglycerides 94 mg/dL (Normal) Range: 0-149 Cholesterol, Total 155 mg/dL (Normal) Range: 100-199 39-Ukn-619675:04 METABOLIC PANEL, COMPREHENSIVE Comments: PATIENT WAS FASTINGPERFORMED BY: LabCoHackettstown Medical CenterBppjfy3141 [facility] [id number] ([id number]) ALT (SGPT) 32 [iU]/L (Normal) Range: 0-55 AST (SGOT) 35 [iU]/L (Normal) Range: 0-40 Alkaline Phosphatase, S 95 [iU]/L (Normal) Range: 25-160 Bilirubin, Total 0.7 mg/dL (Normal) Range: 0.0-1.2 A/G Ratio 1.3 (Normal) Range: 1.1-2.5 Globulin, Total 3.2 g/dL (Normal) Range: 1.5-4.5 Albumin, Serum 4.3 g/dL (Normal) Range: 3.6-4.8 Protein, Total, Serum 7.5 g/dL (Normal) Range: 6.0-8.5 Calcium, Serum 8.9 mg/dL (Normal) Range: 8.6-10.2 Carbon Dioxide, Total 25 mmol/L (Normal) Range: 20-32 Chloride, Serum 103 mmol/L (Normal) Range: 97-108 Potassium, Serum 4.7 mmol/L (Normal) Range: 3.5-5.2 Sodium, Serum 140 mmol/L (Normal) Range: 135-145 BUN/Creatinine Ratio 20 (Normal) Range: 10-22 eGFR If Africn Am 106 mL/min/1.73 (Normal) Comments: Note: A persistent eGFR <60 mL/min/1.73 m2 (3 months or more) mayindicate chronic kidney disease. An eGFR >59 mL/min/1.73 m2 with anelevated urine protein also may indicate chronic kidney disease.Calculated using CKD-EPI formula. eGFR If NonAfricn Am 91 mL/min/1.73 (Normal) Creatinine, Serum 0.88 mg/dL (Normal) Range: 0.76-1.27 BUN 18 mg/dL (Normal) Range: 8-27 Glucose, Serum 81 mg/dL (Normal) Range: 65-99 :04 PSA (PROSTATE SPECIFIC Comments: PATIENT WAS FASTINGPERFORMED BY: VMTurboTr[facility] Hospital6370 [facility] [id number] ANTIGEN) (V76.44) Prostate Specific Ag, 0.5 ng/mL (Normal) Range: 0.0-4.0 Serum Comments: [email or web address] methodology. .According to the [place] [employer], Serum PSA shoulddecrease and remain at undetectable levels after radicalprostatectomy. The AUA defines biochemical recurrence as an initialPSA value 0.2 ng/mL or greater followed by a subsequent confirmatoryPSA value 0.2 ng/mL or greater.Values obtained with d ifferent assay methods or kits cannot be usedinterchangeably. Results cannot be interpreted as absolute evidenceof the presence or absence of malignant disease. :44 PRO TIME INR 2.7 (Normal) PROTIME 27.9 s (Abnormal) Range: 9.1-11.7 :13 PRO TIME INR 2.6 (Normal) PROTIME 26.8 s (Abnormal) Range: 9.1-11.7 :58 PRO TIME INR 2.3 (Normal) PROTIME 23.6 s (Abnormal) Range: 9.1-11.7 :08 PT (Prothrobim Time) Comments: standing order; PATIENT NOT FASTINGPERFORMED BY: [facility]6[address] [facility] [id number] Information: [id number] ([id number]) Prothrombin Time 24.5 {sec} (Abnormal) Range: 8.7-11.5 INR 2.3 (Abnormal) Range: 0.8-1.2 Comments: Reference interval is for non-anticoagulated patients. . Suggested INR therapeutic range for Vitamin K anta gonist therapy: Standard Dose (moderate intensity therapeutic range): 2.0 - 3.0 Higher intensity therapeutic range 2.5 - 3.5 :19 PT (Prothrobim Time) Comments: Standing order; PATIENT NOT FASTINGPERFORMED BY: LabCoHackettstown Medical CenterWhwsvl8008 [facility] [id number] Information: [id number] ([id number]) Prothrombin Time 39.0 {sec} (Abnormal) Range: 8.7-11.5 INR 3.6 (Abnormal) Range: 0.8-1.2 Comments: Client Requested Flag Reference interval is for non- anticoagulated patients. . Suggested INR therapeutic ra nge for Vitamin K antagonist therapy: Standard Dose (moderate intensity therapeutic range): 2.0 - 3.0 Higher intensity therapeutic range 2.5 - 3.5 :22 PRO TIME INR 2.4 (Normal) PROTIME 25.1 s (Abnormal) Range: 9.1-11.7 :03 PRO TIME INR 3.6 (Abnormal) Comments: CRITICAL VALUE REPEATED AND VERIFIED. CALLED TO GASPER04/05/10 DENA GUZMAN.RESULTS READ BACK BY GASPER . PROTIME 37.4 s (Abnormal) Range: 9.1-11.7 :20 METABOLIC PANEL, Comments: PATIENT WAS FASTINGPERFORMED BY: LabCoHackettstown Medical CenterRuvvxa8637 [facility] [id number] Information: [id number], NO DRAW FEE 2ND OR MARGIE COMPREHENSIVE ([id number]) ALT (SGPT) 34 [iU]/L (Normal) Range: 0-55 AST (SGOT) 38 [iU]/L (Normal) Range: 0-40 Alkaline Phosphatase, S 100 [iU]/L (Normal) Range: 25-160 A/G Ratio 1.3 (Normal) Range: 1.1-2.5 Bilirubin, Total 0.7 mg/dL (Normal) Range: 0.0-1.2 Globulin, Total 3.3 g/dL (Normal) Range: 1.5-4.5 Albumin, Serum 4.2 g/dL (Normal) Range: 3.6-4.8 Protein, Total, Serum 7.5 g/dL (Normal) Range: 6.0-8.5 Calcium, Serum 8.9 mg/dL (Normal) Range: 8.6-10.2 Carbon Dioxide, Total 25 mmol/L (Normal) Range: 20-32 Chloride, Serum 102 mmol/L (Normal) Range: 97-108 Potassium, Serum 4.9 mmol/L (Normal) Range: 3.5-5.2 Sodium, Serum 139 mmol/L (Normal) Range: 135-145 BUN/Creatinine Ratio 18 (Normal) Range: 10-22 eGFR >59 mL/min/1.73 (Normal) eGFR AfricanAmerican >59 mL/min/1.73 Comments: Note: Persistent reduction for 3 months or more in an eGFR<60 mL/min/1.73 m2 defines CKD. Patients with eGFR values>/=60 mL/min/1.73 m2 may also have CKD if evidence of persistentproteinuria is (Normal) present. Additional information may be found [email or web address] .Effective October 22, 2010, Glom Filt Rate, Estimated, will be calculated using the CK-EPI formula. Creatinine, Serum 0.92 mg/dL (Normal) Range: 0.76-1.27 BUN 17 mg/dL (Normal) Range: 8-27 Glucose, Serum 81 mg/dL (Normal) Range: 65-99 :20 LIPID PANEL ([id number]) Comments: PATIENT WAS FASTINGPERFORMED BY: LabCoHackettstown Medical CenterWqcccc9892 [facility] [id number] LDL/HDL Ratio 2.4 {ratio_units} (Normal) Range: 0.0-3.6 HDL Cholesterol 43 mg/dL (Normal) Comments: According to ATP-III Guidelines, HDL-C >59 mg/dL is considered anegative risk factor for CHD. LDL Cholesterol Calc 105 mg/dL (Abnormal) Range: 0-99 VLDL Cholesterol Lisa 18 mg/dL (Normal) Range: 5-40 Cholesterol, Total 166 mg/dL (Normal) Range: 100-199 Triglycerides 91 mg/dL (Normal) Range: 0-149 :32 COMP METABOLIC ALK P 109 U/L (Normal) Range: 50-136 ALT 36 U/L (Normal) Range: 12-78 AST 25 U/L (Normal) Range: 15-37 CL 104 mmol/L (Normal) Range: 98-107 CO2 29.0 mmol/L (Normal) Range: 21.0-32.0 GAP 6 (Normal) Range: 5-15 K 4.4 mmol/L (Normal) Range: 3.5-5.1 NA 139 mmol/L (Normal) Range: 136-145 T BILI 0.70 mg/dL (Normal) Range: 0.00-1.00 A/G 1.1 {RATIO} (Normal) Range: 0.9-2.4 ALB 4.1 g/dL (Normal) Range: 3.4-5.0 BUN 11 mg/dL (Normal) Range: 7-18 BUN/CRE 12.2 {RATIO} (Normal) Range: 10-20 CA 8.7 mg/dL (Normal) Range: 8.5-10.1 CREAT,SERUM 0.9 mg/dL (Normal) Range: 0.8-1.3 EST GFR 91 mL/min (Normal) EST GFR - AA 110 mL/min (Normal) GLOB 3.8 g/dL (Normal) Range: 2.7-4.2 GLU 81 mg/dL (Normal) Range: 70-110 T PROT 7.9 g/dL (Normal) Range: 6.4-8.2 :32 D BILI 0.20 mg/dL (Normal) Range: 0.00-0.30 :32 LIPID CHOL 156 mg/dL (Normal) Comments: <200 mg/dL Nbjslibwj421-561 mg/dL Borderline>240 mg/dL High Risk HDL 43 mg/dL (Normal) Comments: Reference RangeHDL <40 mg/dL Low HDL CholesterolHDL >or= 60 mg/dL High HDL Cholesterol LDL 95 mg/dL (Normal) Range: 0-130 TRIG 89 mg/dL (Normal) Comments: Serum Triglycerides Reference IntervalNormal <150 mg/dLBorderline high 150 - 199 mg/dLHigh 200 - 499 mg/ dLVery High > or = 500 mg/dL VLDL 18 mg/dL (Normal) Range: 5-40 :32 PRO TIME INR 2.8 (Normal) PROTIME 28.9 s (Abnormal) Range: 9.1-11.7 :32 PSA, SCREEN 0.6 ng/mL (Normal) Range: 0.0-4.0 :50 PRO TIME INR 3.3 (Normal) PROTIME 33.5 s (Abnormal) Range: 9.1-11.7 :34 PRO TIME INR 1.9 (Normal) PROTIME 20.1 s (Abnormal) Range: 9.1-11.7 :16 PRO TIME INR 1.4 (Normal) PROTIME 14.3 s (Abnormal) Range: 9.1-11.7 :10 PRO TIME INR 4.4 (Abnormal) Comments: RESULTS CALLED TO OFFICE TO ESTER02/20/10 1323 USHA BELL.REPORT READ BACK BY SAME . PROTIME 45.3 s (Abnormal) Range: 9.1-11.7 :29 PRO TIME INR 3.5 (Normal) PROTIME 35.5 s (Abnormal) Range: 9.1-11.7 :24 PRO TIME INR 2.7 (Normal) PROTIME 27.4 s (Abnormal) Range: 9.1-11.7 :02 PRO TIME INR 2.6 (Normal) PROTIME 26.4 s (Abnormal) Range: 9.1-11.7 :34 PRO TIME INR 2.8 (Normal) PROTIME 28.6 s (Abnormal) Range: 9.1-11.7 :37 PRO TIME INR 2.5 (Normal) PROTIME 26.0 s (Abnormal) Range: 9.1-11.7 :54 PRO TIME INR 1.9 (Normal) PROTIME 19.9 s (Abnormal) Range: 9.1-11.7 :30 PRO TIME INR 2.0 (Normal) PROTIME 20.7 s (Abnormal) Range: 9.1-11.7 :44 PRO TIME INR 2.7 (Normal) PROTIME 27.4 s (Abnormal) Range: 9.1-11.7 :30 CBCD,SMEAR DIFF RED CELL MORPH SeeNote {NORMAL} (Normal) Comments: Result: NORM C+C BAND 1 % (Normal) Range: 0-5 CELLS COUNTED 100 (Normal) EOS 3 % (Normal) Range: 0-5 LYMPH 33 % (Normal) Range: 19-41 MCHC 33.9 g/dL (Normal) Range: 32-36 MONOCYTE 9 % (Normal) Range: 0-10 PLT 247 K/mm3 (Normal) Range: 150-450 PLT EST SeeNote (Normal) Comments: Result: ADEQUATE RDW 13.1 % (Normal) Range: 11.6-14.6 SEGS 54 % (Normal) Range: 47-70 HCT 44.8 % (Normal) Range: 40-54 HGB 15.2 g/dL (Normal) Range: 14.0-18.0 MCH 29.9 pg (Normal) Range: 27.0-32.0 MCV 88.1 fL (Normal) Range: 80-94 RBC 5.08 {M/mm3} (Normal) Range: 4.6-6.2 WBC 6.5 K/mm3 (Normal) Range: 4.4-11.0 :30 COMP METABOLIC GAP 6 (Normal) Range: 5-15 CL 103 mmol/L (Normal) Range: 98-107 CO2 30.0 mmol/L (Normal) Range: 21.0-32.0 A/G 1.1 {RATIO} (Normal) Range: 0.9-2.4 ALB 4.1 g/dL (Normal) Range: 3.4-5.0 ALK P 103 U/L (Normal) Range: 50-136 ALT 45 U/L (Normal) Range: 12-78 AST 33 U/L (Normal) Range: 15-37 BUN 16 mg/dL (Normal) Range: 7-18 BUN/CRE 17.8 {RATIO} (Normal) Range: 10-20 CA 8.9 mg/dL (Normal) Range: 8.5-10.1 CREAT,SERUM 0.9 mg/dL (Normal) Range: 0.8-1.3 EST GFR 91 mL/min (Normal) EST GFR - AA 110 mL/min (Normal) GLOB 3.7 g/dL (Normal) Range: 2.7-4.2 GLU 84 mg/dL (Normal) Range: 70-110 K 4.6 mmol/L (Normal) Range: 3.5-5.1 NA 139 mmol/L (Normal) Range: 136-145 T BILI 0.60 mg/dL (Normal) Range: 0.00-1.00 T PROT 7.8 g/dL (Normal) Range: 6.4-8.2 :30 LIPID CHOL 174 mg/dL (Normal) Comments: <200 mg/dL Rvbpbdkmy033-753 mg/dL Borderline>240 mg/dL High Risk HDL 43 mg/dL (Normal) Comments: Reference RangeHDL <40 mg/dL Low HDL CholesterolHDL >or= 60 mg/dL High HDL Cholesterol LDL 106 mg/dL (Normal) Range: 0-130 TRIG 123 mg/dL (Normal) Comments: Serum Triglycerides Reference IntervalNormal <150 mg/dLBorderline high 150 - 199 mg/dLHigh 200 - 499 mg/ dLVery High > or = 500 mg/dL VLDL 25 mg/dL (Normal) Range: -40 :30 PRO TIME INR 2.3 (Normal) PROTIME 25.4 s (Abnormal) Range: 9.1-11.7 :15 PRO TIME INR 2.6 (Normal) PROTIME 29.2 s (Abnormal) Range: 9.1-11.7 :24 PRO TIME INR 2.5 (Normal) PROTIME 28.9 s (Abnormal) Range: 9.1-11.7 :06 PRO TIME INR 2.6 (Normal) PROTIME 29.1 s (Abnormal) Range: 9.1-11.7 :24 PRO TIME INR 3.1 (Normal) PROTIME 36.3 s (Abnormal) Range: 9.1-11.7 :33 PRO TIME INR 3.5 (Normal) PROTIME 41.0 s (Abnormal) Range: 9.1-11.7 :59 PRO TIME INR 1.9 (Normal) PROTIME 21.6 s (Abnormal) Range: 9.1-11.7 :00 PRO TIME INR 2.1 (Normal) PROTIME 23.4 s (Abnormal) Range: 9.1-11.7 :42 PRO TIME INR 1.9 (Normal) PROTIME 21.3 s (Abnormal) Range: 9.1-11.7 :40 LIPID CHOL 169 mg/dL (Normal) Comments: <200 mg/dL Desirable 200-240 mg/dL Borderline >240 mg/dL High Risk HDL 39 mg/dL (Normal) Comments: Reference Range HDL <40 mg/dL Low HDL Cholesterol HDL >or= 60 mg/dL High HDL Cholesterol LDL 111 mg/dL (Normal) Range: 0-130 TRIG 97 mg/dL (Normal) Comments: Serum Triglycerides Reference Interval Normal <150 mg/dL Borderline high 150 - 199 mg/dL High 200 - 499 mg/dL Very High > or = 500 mg/dL VLDL 19 mg/dL (Normal) Range: 5-40 :40 LIVER ALB 3.8 g/dL (Normal) Range: 3.4-5.0 ALK P 120 U/L (Normal) Range: 50-136 ALT 56 U/L (Normal) Range: 30-65 AST 33 U/L (Normal) Range: 15-37 D BILI 0.14 mg/dL (Normal) Range: 0.00-0.30 T BILI 0.60 mg/dL (Normal) Range: 0.00-1.00 T PROT 7.9 g/dL (Normal) Range: 6.4-8.2 :40 PRO TIME INR 1.9 (Normal) PROTIME 20.8 s (Abnormal) Range: 9.1-11.7 :44 PRO TIME INR 2.4 (Normal) PROTIME 27.7 s (Abnormal) Range: 9.1-11.7 :06 PT/INR, Office ([id number]) INR 2.2 (Normal) :45 PT/INR, Office ([id number]) INR 2.0 (Normal) :24 PT/INR, Office ([id number]) Comments: PATIENT NOT FASTINGPERFORMED BY: [facility] [id number] [facility] [id number] Information: [id number] Prothrombin Time 36.0 {sec} (Abnormal) Range: 8.7-11.5 INR 3.4 (Abnormal) Range: 0.8-1.2 Comments: Reference interval is for non-anticoagulated patients. . Suggested INR therapeutic range for Vitamin K anta gonist therapy: Standard Dose (moderate intensity therapeutic range): 2.0 - 3.0 Higher intensity therapeutic range 2.5 - 3.5 :05 PT/INR, Office ([id number]) Comments: done km INR 2.2 (Normal) :34 PT/INR, Office ([id number]) Comments: done km INR 2.7 (Normal) :54 PT/INR, Office ([id number]) Comments: done BC INR 2.6 (Normal) :47 PT/INR, Office ([id number]) INR 1.8 (Normal) :26 PT/INR, Office ([id number]) INR 1.9 (Normal) :28 CBCD,SMEAR DIFF BAND 1 % (Normal) Range: 0-5 CELLS COUNTED 100 (Normal) EOS 2 % (Normal) Range: 0-5 HCT 41.7 % (Normal) Range: 40-54 HGB 14.2 g/dL (Normal) Range: 14.0-18.0 LYMPH 35 % (Normal) Range: 19-41 MCH 29.3 pg (Normal) Range: 27.0-32.0 MCHC 34.0 g/dL (Normal) Range: 32-36 MCV 86.3 fL (Normal) Range: 80-94 MONOCYTE 7 % (Normal) Range: 0-10 PLT 281 K/mm3 (Normal) Range: 150-450 PLT EST SeeNote (Normal) Comments: Result: ADEQUATE RBC 4.83 {M/mm3} (Normal) Range: 4.6-6.2 RDW 14.1 % (Normal) Range: 11.6-14.6 RED CELL MORPH SeeNote {NORMAL} (Normal) Comments: Result: NORM C+C SEGS 55 % (Normal) Range: 47-70 WBC 5.7 K/mm3 (Normal) Range: 4.4-11.0 :28 COMP METABOLIC A/G 1.0 {RATIO} (Normal) Range: 0.9-2.4 ALB 3.8 g/dL (Normal) Range: 3.4-5.0 ALK P 111 U/L (Normal) Range: 50-136 ALT 49 U/L (Normal) Range: 30-65 AST 31 U/L (Normal) Range: 15-37 CA 8.8 mg/dL (Normal) Range: 8.5-10.1 CL 107 mmol/L (Normal) Range: 98-107 CO2 28.5 mmol/L (Normal) Range: 21.0-32.0 GAP 6 (Normal) Range: 5-15 GLOB 3.7 g/dL (Normal) Range: 2.7-4.2 K 4.6 mmol/L (Normal) Range: 3.5-5.1 NA 141 mmol/L (Normal) Range: 136-145 T BILI 0.72 mg/dL (Normal) Range: 0.00-1.00 T PROT 7.5 g/dL (Normal) Range: 6.4-8.2 BUN 13 mg/dL (Normal) Range: 7-18 BUN/CRE 14.4 {RATIO} (Normal) Range: 10-20 CREAT,SERUM 0.9 mg/dL (Normal) Range: 0.8-1.3 EST GFR 91 mL/min (Normal) EST GFR - AA 110 mL/min (Normal) GLU 87 mg/dL (Normal) Range: 70-110 :28 LIPID CHOL 146 mg/dL (Normal) Comments: <200 mg/dL Desirable 200-240 mg/dL Borderline >240 mg/dL High Risk HDL 40 mg/dL (Normal) Comments: Reference Range HDL <40 mg/dL Low HDL Cholesterol HDL >or= 60 mg/dL High HDL Cholesterol LDL 95 mg/dL (Normal) Range: 0-130 TRIG 54 mg/dL (Normal) Comments: Serum Triglycerides Reference Interval Normal <150 mg/dL Borderline high 150 - 199 mg/dL High 200 - 499 mg/dL Very High > or = 500 mg/dL VLDL 11 mg/dL (Normal) Range: 5-40 :28 PSA,TOT SCREEN 0.42 ng/mL (Normal) Range: 0.00-4.00 Comments: This test was performed using the TPSA method for the[employer]att[employer]centive chemistry system.Values obtained with different assay methods cannot be usedinterchangably.When changing PSA assays in the course of monito ring apatient, additional sequential testing should be carriedout to confirm baseline values. :28 TSH 4.28 {uIU/mL} (Normal) Range: 0.34-4.82 :36 PT/INR, Office ([id number]) Comments: done BC INR 2.4 (Normal) :01 PT/INR, Office ([id number]) INR 2.1 (Normal) :31 PT/INR, Office ([id number]) INR 2.3 (Normal) :42 PT/INR, Office ([id number]) INR 2.4 (Normal) :06 PT/INR, Office ([id number]) INR 2.3 (Normal) :40 PT/INR, Office ([id number]) INR 3.3 (Normal) Comments: aw :33 CBCD,SMEAR DIFF PLT EST SeeNote (Normal) Comments: Result: ADEQUATE RED CELL MORPH SeeNote {NORMAL} (Normal) Comments: Result: NORM C+C CELLS COUNTED 100 (Normal) EOS 4 % (Normal) Range: 0-5 HCT 43.5 % (Normal) Range: 40-54 HGB 14.9 g/dL (Normal) Range: 14.0-18.0 LYMPH 22 % (Normal) Range: 19-41 MCH 28.8 pg (Normal) Range: 27.0-32.0 MCHC 34.2 g/dL (Normal) Range: 32-36 MCV 84.0 fL (Normal) Range: 80-94 MONOCYTE 5 % (Normal) Range: 0-10 PLT 316 K/mm3 (Normal) Range: 150-450 RBC 5.18 {M/mm3} (Normal) Range: 4.6-6.2 RDW 13.1 % (Normal) Range: 11.6-14.6 SEGS 69 % (Normal) Range: 47-70 WBC 7.4 K/mm3 (Normal) Range: 4.4-11.0 :33 COMP METABOLIC A/G 1.1 {RATIO} (Normal) Range: 0.9-2.4 ALB 4.0 g/dL (Normal) Range: 3.4-5.0 ALK P 114 U/L (Normal) Range: 50-136 ALT 46 U/L (Normal) Range: 30-65 AST 29 U/L (Normal) Range: 15-37 BUN 12 mg/dL (Normal) Range: 7-18 BUN/CRE 13.3 {RATIO} (Normal) Range: 10-20 CA 8.7 mg/dL (Normal) Range: 8.5-10.1 CL 103 mmol/L (Normal) Range: 98-107 CO2 28.6 mmol/L (Normal) Range: 21.0-32.0 CREAT,SERUM 0.9 mg/dL (Normal) Range: 0.8-1.3 GAP 6 (Normal) Range: 5-15 GLOB 3.8 g/dL (Normal) Range: 2.7-4.2 GLU 87 mg/dL (Normal) Range: 70-110 K 4.8 mmol/L (Normal) Range: 3.5-5.1 NA 138 mmol/L (Normal) Range: 136-145 T BILI 0.56 mg/dL (Normal) Range: 0.00-1.00 T PROT 7.8 g/dL (Normal) Range: 6.4-8.2 :33 D BILI 0.11 mg/dL (Normal) Range: 0.00-0.30 :33 LIPID CHOL 196 mg/dL (Normal) Comments: <200 mg/dL Desirable 200-240 mg/dL Borderline >240 mg/dL High Risk HDL 40 mg/dL (Normal) Comments: Reference Range HDL <40 mg/dL Low HDL Cholesterol HDL >or= 60 mg/dL High HDL Cholesterol LDL 129 mg/dL (Normal) Range: 0-130 TRIG 136 mg/dL (Normal) Comments: Serum Triglycerides Reference Interval Normal <150 mg/dL Borderline high 150 - 199 mg/dL High 200 - 499 mg/dL Very High > or = 500 mg/dL VLDL 27 mg/dL (Normal) Range: 5-40 :59 PRO TIME INR 2.1 (Normal) PROTIME 23.8 s (Abnormal) Range: 10.6-13.2 :38 PRO TIME INR 1.4 (Normal) PROTIME 15.8 s (Abnormal) Range: 10.6-13.2 :12 PRO TIME INR 4.0 (Abnormal) Comments: CRITICAL VALUE REPEATED AND VERIFIED. CALLED TO MARTHA03/11/08 ANGEL LUIS FOWLER.RESULTS READ BACK BY RUSS. PROTIME 43.2 s (Abnormal) Range: 10.6-13.2 :55 PRO TIME INR 2.5 (Normal) PROTIME 27.4 s (Abnormal) Range: 10.6-13.2 :31 PRO TIME INR 3.0 (Normal) PROTIME 32.4 s (Abnormal) Range: 10.6-13.2 :51 PRO TIME INR 3.0 (Normal) PROTIME 33.0 s (Abnormal) Range: 10.6-13.2 :15 PRO TIME INR 4.1 (Abnormal) Comments: CRITICAL VALUE REPEATED AND VERIFIED. CALLED TO [facility]12/17/07 0853 ANGEL LUIS FRY.RESULTS READ BACK BY VERENICE . PROTIME 44.2 s (Abnormal) Range: 10.6-13.2 :43 PRO TIME INR 3.5 (Normal) PROTIME 37.7 s (Abnormal) Range: 10.6-13.2 :08 PRO TIME INR 2.4 (Normal) PROTIME 26.4 s (Abnormal) Range: 10.6-13.2 :32 PRO TIME INR 2.9 (Normal) PROTIME 32.1 s (Abnormal) Range: 10.6-13.2 :05 PRO TIME INR 2.1 (Normal) PROTIME 23.2 s (Abnormal) Range: 10.6-13.2 :17 CBCD,SMEAR DIFF CELLS COUNTED 100 (Normal) EOS 2 % (Normal) Range: 0-5 HCT 42.0 % (Normal) Range: 40-54 HGB 14.2 g/dL (Normal) Range: 14.0-18.0 LYMPH 26 % (Normal) Range: 19-41 MCH 28.8 pg (Normal) Range: 27.0-32.0 MCHC 33.9 g/dL (Normal) Range: 32-36 MCV 85.1 fL (Normal) Range: 80-94 MONOCYTE 5 % (Normal) Range: 0-10 PLT 302 K/mm3 (Normal) Range: 150-450 PLT EST SeeNote (Normal) Comments: Result: ADEQUATE RBC 4.94 {M/mm3} (Normal) Range: 4.6-6.2 RDW 13.7 % (Normal) Range: 11.6-14.6 RED CELL MORPH SeeNote {NORMAL} (Normal) Comments: Result: NORM C+C SEGS 67 % (Normal) Range: 47-70 WBC 7.3 K/mm3 (Normal) Range: 4.4-11.0 :17 COMP METABOLIC A/G 1.0 {RATIO} (Normal) Range: 0.9-2.4 ALB 3.9 g/dL (Normal) Range: 3.4-5.0 ALK P 98 U/L (Normal) Range: 50-136 ALT 41 [iU]/L (Normal) Range: 30-65 AST 28 U/L (Normal) Range: 15-37 BUN 19 mg/dL (Abnormal) Range: 7-18 BUN/CRE 23.8 {RATIO} (Abnormal) Range: 10-20 CA 8.6 mg/dL (Normal) Range: 8.5-10.1 CL 102 mmol/L (Normal) Range: 98-107 CO2 26.2 mmol/L (Normal) Range: 21.0-32.0 Comments: Please Note Reference Interval Change CREAT,SERUM 0.8 mg/dL (Normal) Range: 0.8-1.3 GAP 10 (Normal) Range: 5-15 GLOB 3.8 g/dL (Normal) Range: 2.7-4.2 Comments: Please Note Reference Interval Change GLU 83 mg/dL (Normal) Range: 70-110 K 4.2 mmol/L (Normal) Range: 3.5-5.1 NA 138 mmol/L (Normal) Range: 136-145 T BILI 0.52 mg/dL (Normal) Range: 0.00-1.00 T PROT 7.7 g/dL (Normal) Range: 6.4-8.2 :17 COMPLETE UA BACTERIA 0 SEEN {/hpf} (Normal) BILIRUBIN URINE SeeNote (Normal) Comments: Result: NEGATIVE CLARITY CLEAR (Normal) COLOR YELLOW (Normal) GLUCOSE, UR SeeNote (Normal) Comments: Result: NEGATIVE KETONE UR SeeNote mg/dL (Normal) Comments: Result: NEGATIVE LEUK ESTERASE SeeNote (Normal) Comments: Result: NEGATIVE MUCUS, URINE 1+ {/hpf} (Normal) NITRITE UR SeeNote (Normal) Comments: Result: NEGATIVE OCCULT BLOOD-UR SeeNote (Abnormal) Comments: Result: TRACE-INTACT pH UR 6.0 (Normal) Range: 5.0-8.0 PROT DIPSTX SeeNote (Normal) Comments: Result: NEGATIVE RBC-UA SeeNote {/hpf} (Normal) Range: 0-5 Comments: Result: 0-5 SEEN SP.GR. DIPSTX >=1.030 (Normal) Range: 1.002-1.030 SQUAM EPI 0 SEEN {/hpf} (Normal) Range: 0-5 UROBILI 0.2 EU/dl (Normal) Range: 0.2 - 1.0 WBC 0 SEEN {/hpf} (Normal) Range: 0-5 04-Olz-41863:17 FACL [id number] COMMENT Comment (Normal) Comments: Genetic counselors are available for health care providersto discuss results at [phone]. .Methodology:DNA analysis of the Facto r V gene was performed by allele-specific PCR followed by gel electrophoresis. The diagnosticsensitivity and specificity is >99% for both. Molecular-based testing is highly accurate, but as in any la boratorytest, diagnostic errors may occur. All test results must becombined with clinical information for the most accurateinterpretation. .References:Rebeca Hirsch (1996). Clin Lab Med 16:169-186. .Michael Adame, Ph.D.Tracie Lewis, Ph.D.Kayleen Faulkner, Ph.D.Cheryl Spangler, Ph.D.Bladimir Hardwick, Ph.D.Pauly Baxter, Ph.D.Performed At: [facility] [id number] [facility], [place] [id number] FACTOR V LEIDEN Comment (Normal) Comments: Result: Negative (no mutation found) .Factor V Leiden is a specific mutation ([id number]) in the factorV gene that is associated with an increased r isk of venousthrombosis. Factor V Leiden is more resistant toinactivation by activated protein C. As a result, factor Vpersists in the circulation leading to a mild hyper-coagulable state. The Leiden mutation accounts for 90% -95% of APC resistance. Factor V Leiden has been reported inpatients with deep vein thrombosis, pulmonary embolus,central retinal vein occlusion, cerebral sinus thrombosisand hepatic vein thrombosis. Other risk factors to beconsidered in the workup for venous thrombosis include [id number] mutation in the factor II (prothrombin) gene,protein S and C deficiency, and antithromb in deficiencies.Anticardiolipin antibody and lupus anticoagulant analysismay be appropriate for certain patients, as well ashomocysteine levels. .Contact your local [facility] for information on how to orderadditional testing if desired. :17 LIPID CHOL 169 mg/dL (Normal) Comments: <200 mg/dL Desirable 200-240 mg/dL Borderline >240 mg/dL High Risk HDL 41 mg/dL (Normal) Comments: Reference Range HDL <40 mg/dL Low HDL Cholesterol HDL >or= 60 mg/dL High HDL Cholesterol LDL 113 mg/dL (Normal) Range: 0-130 TRIG 76 mg/dL (Normal) Comments: Serum Triglycerides Reference Interval Normal <150 mg/dL Borderline high 150 - 199 mg/dL High 200 - 499 mg/dL Very High > or = 500 mg/dL VLDL 15 mg/dL (Normal) Range: 5-40 :17 PSA,TOT SCREEN 0.59 ng/mL (Normal) Range: 0.00-4.00 Comments: This test was performed using the TPSA method for theGnip chemistry system.Values obtained with different assay methods cannot be usedinterchangably.When changing PSA assays in the course of monito ring apatient, additional sequential testing should be carriedout to confirm baseline values. :17 TSH 4.03 {uIU/mL} (Normal) Range: 0.34-4.82 :23 PRO TIME INR 2.3 (Normal) PROTIME 25.8 s (Abnormal) Range: 10.6-13.2 :16 PRO TIME INR 1.6 (Normal) PROTIME 18.5 s (Abnormal) Range: 10.6-13.2 :07 PRO TIME INR 2.0 (Normal) PROTIME 22.5 s (Abnormal) Range: 10.6-13.2 :39 PRO TIME INR 2.0 (Normal) PROTIME 22.2 s (Abnormal) Range: 10.6-13.2 :42 PRO TIME INR 2.2 (Normal) PROTIME 24.9 s (Abnormal) Range: 10.6-13.2 :02 PRO TIME INR 2.0 (Normal) PROTIME 23.0 s (Abnormal) Range: 10.6-13.2 :57 PRO TIME INR 1.9 (Normal) PROTIME 21.4 s (Abnormal) Range: 10.6-13.2 :01 PRO TIME INR 1.8 (Normal) PROTIME 20.6 s (Abnormal) Range: 10.6-13.2 :00 PRO TIME INR 2.4 (Normal) PROTIME 26.9 s (Abnormal) Range: 10.6-13.2 :35 PRO TIME INR 2.7 (Normal) PROTIME 30.3 s (Abnormal) Range: 10.6-13.2 :45 PRO TIME INR 1.9 (Normal) PROTIME 21.6 s (Abnormal) Range: 10.6-13.2 :55 PRO TIME INR 1.3 (Normal) PROTIME 15.5 s (Abnormal) Range: 10.6-13.2 :30 PRO TIME INR 2.0 (Normal) PROTIME 22.6 s (Abnormal) Range: 10.6-13.2 :00 PRO TIME INR 2.6 (Normal) PROTIME 28.8 s (Abnormal) Range: 10.6-13.2 :30 PRO TIME INR 2.5 (Normal) PROTIME 28.0 s (Abnormal) Range: 10.6-13.2 :05 PRO TIME INR 2.9 (Normal) PROTIME 31.4 s (Abnormal) Range: 10.6-13.2 Comments: Please Note Reference Interval Change :17 BMP Comments: COMMENTS: ROOM 1INDICATE CK '1', '2', '3', OR 'R' FOR RANDOM: 1 BUN 19 mg/dL (Abnormal) Range: 7-18 BUN/CRE 13.6 {RATIO} (Normal) Range: 10-20 CA 8.9 mg/dL (Normal) Range: 8.5-10.1 CL 101 mmol/L (Normal) Range: 98-107 CO2 24.2 mmol/L (Normal) Range: 22.0-29.0 CREAT,SERUM 1.4 mg/dL (Abnormal) Range: 0.8-1.3 GAP 9 (Normal) Range: 5-15 GLU 154 mg/dL (Abnormal) Range: 70-110 Comments: Fasting Glucose result greater than or equal to 126 mg/dL suggests DIABETES MELLITUS per A.D.A. criteria. K 4.5 mmol/L (Normal) Range: 3.5-5.1 NA 134 mmol/L (Abnormal) Range: 136-145 :17 CBCD Comments: COMMENTS: ROOM 1 BAND 7 % (Abnormal) Range: 0-5 CELLS COUNTED 100 (Normal) HCT 35.6 % (Abnormal) Range: 40-54 HGB 12.0 g/dL (Abnormal) Range: 14.0-18.0 LYMPH 10 % (Abnormal) Range: 19-41 MCH 29.0 pg (Normal) Range: 27.0-32.0 MCHC 33.7 g/dL (Normal) Range: 32-36 MCV 85.9 fL (Normal) Range: 80-94 MONOCYTE 4 % (Normal) Range: 0-10 MPV 6.9 fL (Normal) Range: 6.5-12.0 NRBC,LH FLAGGED 0 % (Normal) Range: 0-5 PLT 504 K/mm3 (Abnormal) Range: 150-450 PLT EST MOD INC (Normal) RBC 4.14 {M/mm3} (Abnormal) Range: 4.6-6.2 RDW 14.5 % (Normal) Range: 11.6-14.6 RED CELL MORPH SeeNote {NORMAL} Comments: Result: NORM C&C (Normal) SEGS 79 % (Abnormal) Range: 47-70 WBC 23.3 K/mm3 (Abnormal) Range: 4.4-11.0 :1 CKRI 10.8 % (Abnormal) Comments: COMMENTS: ROOM 1INDICATE CK '1', '2', '3', OR 'R' FOR RANDOM: 1 7 Range: 0.0-4.0 :1 CPK TOTAL 117 U/L (Normal) Comments: COMMENTS: ROOM 1INDICATE CK '1', '2', '3', OR 'R' FOR RANDOM: 1 7 Range: 35-232 :1 CPKMB 12.6 ng/mL (Abnormal) Comments: COMMENTS: ROOM 1INDICATE CK '1', '2', '3', OR 'R' FOR RANDOM: 1 7 Range: 0.0-5.0 Comments: CK-MB and RI Interpretation MB Relative Index Non-AMI <or= 5 NA Indeterminate > 5 <or= 4 AMI > 5 > 4 :1 D-DIMER QUANT >5250 ng/mL (Abnormal) Comments: COMMENTS: ROOM 1 7 Comments: D-Dimer ELEVATED: Additional studies may be indicated to conclude diagnosis. RESULTS CALLED TO RICH 12/15/062021 ARI CHRISTINA.REPORT READ BACK BY SAME . :17 PRO TIME Comments: COMMENTS: ROOM 1 INR 1.0 (Normal) PROTIME 12.4 s (Normal) Range: 10.6-13.2 Comments: Please Note Reference Interval Change :17 PTT 25.5 s (Normal) Comments: COMMENTS: ROOM 1 Range: 24.6-36.6 :17 TROPONIN-I 2.82 ng/mL (Abnormal) Comments: COMMENTS: ROOM 1INDICATE CK '1', '2', '3', OR 'R' FOR RANDOM: 1 Comments: CRITICAL VALUE REPEATED AND VERIFIED. CALLED TO MARÍA ELENA12/15/061957 DREA CASE.RESULTS READ BACK BY MARÍA ELENA CONNER. TROPONIN-I EXPECTED VALUES < 0.50 NEGATIVE 0.50 - 1.49 INDETERMINANT > OR = 1.50 SUGGEST AR :15 BMP Comments: COMMENTS: FASTPrecautions*: NOT APPLICABLE BUN 19 mg/dL (Abnormal) Range: 7-18 BUN/CRE 19.0 {RATIO} (Normal) Range: 10-20 CA 8.3 mg/dL (Abnormal) Range: 8.5-10.1 CL 105 mmol/L (Normal) Range: 98-107 CO2 26.3 mmol/L (Normal) Range: 22.0-29.0 CREAT,SERUM 1.0 mg/dL (Normal) Range: 0.8-1.3 GAP 9 (Normal) Range: 5-15 GLU 122 mg/dL (Abnormal) Range: 70-110 Comments: Fasting Glucose result from 110 to <126 mg/dL suggests IMPAIRED HOMEOSTASIS per A.D.A. criteria. K 3.6 mmol/L (Normal) Range: 3.5-5.1 NA 140 mmol/L (Normal) Range: 136-145 :15 CBCD Comments: COMMENTS: FASTPrecautions*: NOT APPLICABLE BASO% 0.4 % (Normal) Range: 0-1 EO% 2.8 % (Normal) Range: 0-5 LY% 31.1 % (Normal) Range: 19-41 MONO% 9.6 % (Normal) Range: 0-10 HCT 41.1 % (Normal) Range: 40-54 HGB 14.3 g/dL (Normal) Range: 14.0-18.0 MCH 29.9 pg (Normal) Range: 27.0-32.0 MCHC 34.7 g/dL (Normal) Range: 32-36 MCV 86.0 fL (Normal) Range: 80-94 MPV 6.9 fL (Normal) Range: 6.5-12.0 NEUT% 56.1 % (Normal) Range: 47-70 PLT 318 K/mm3 (Normal) Range: 150-450 RBC 4.78 {M/mm3} (Normal) Range: 4.6-6.2 RDW 13.0 % (Normal) Range: 11.6-14.6 WBC 11.0 K/mm3 (Normal) Range: 4.4-11.0 :35 CBCD,SMEAR DIFF BAND 2 % (Normal) Range: 0-5 BASOPHIL 1 % (Normal) Range: 0-1 CELLS COUNTED 100 (Normal) EOS 5 % (Normal) Range: 0-5 LYMPH 32 % (Normal) Range: 19-41 MONOCYTE 8 % (Normal) Range: 0-10 PLT 299 K/mm3 (Normal) Range: 150-450 PLT EST SeeNote (Normal) Comments: Result: ADEQUATE RED CELL MORPH SeeNote {NORMAL} (Normal) Comments: Result: NORM C&C SEGS 52 % (Normal) Range: 47-70 HCT 41.0 % (Normal) Range: 40-54 HGB 14.1 g/dL (Normal) Range: 14.0-18.0 MCH 29.7 pg (Normal) Range: 27.0-32.0 MCHC 34.2 g/dL (Normal) Range: 32-36 MCV 86.8 fL (Normal) Range: 80-94 RBC 4.72 {M/mm3} (Normal) Range: 4.6-6.2 RDW 13.1 % (Normal) Range: 11.6-14.6 WBC 6.8 K/mm3 (Normal) Range: 4.4-11.0 :35 COMP METABOLIC A/G 0.9 {RATIO} (Normal) Range: 0.9-2.4 ALB 3.5 g/dL (Normal) Range: 3.4-5.0 ALK P 91 U/L (Normal) Range: 50-136 ALT 49 [iU]/L (Normal) Range: 30-65 AST 32 U/L (Normal) Range: 15-37 BUN 19 mg/dL (Abnormal) Range: 7-18 BUN/CRE 23.8 {RATIO} (Abnormal) Range: 10-20 CA 8.3 mg/dL (Abnormal) Range: 8.5-10.1 CL 103 mmol/L (Normal) Range: 98-107 CO2 26.8 mmol/L (Normal) Range: 22.0-29.0 CREAT,SERUM 0.8 mg/dL (Normal) Range: 0.8-1.3 GAP 7 (Normal) Range: 5-15 GLOB 3.9 g/dL (Abnormal) Range: 2.3-3.5 GLU 80 mg/dL (Normal) Range: 70-110 K 3.9 mmol/L (Normal) Range: 3.5-5.1 NA 137 mmol/L (Normal) Range: 136-145 T BILI 0.61 mg/dL (Normal) Range: 0.00-1.00 T PROT 7.4 g/dL (Normal) Range: 6.4-8.2 :35 D BILI 0.11 mg/dL (Normal) Range: 0.00-0.30 :35 LIPID CHOL 156 mg/dL (Normal) Comments: <200 mg/dL Desirable 200-240 mg/dL Borderline >240 mg/dL High Risk HDL 39 mg/dL (Normal) Comments: Reference Range HDL <40 mg/dL Low HDL Cholesterol HDL >or= 60 mg/dL High HDL Cholesterol LDL 108 mg/dL (Normal) Range: 0-130 TRIG 44 mg/dL (Normal) Comments: Serum Triglycerides Reference Interval Normal <150 mg/dL Borderline high 150 - 199 mg/dL High 200 - 499 mg/dL Very High > or = 500 mg/dL VLDL 9 mg/dL (Normal) Range: 5-40 :35 PSA,TOT SCREEN 0.53 ng/mL (Normal) Range: 0.00-4.00 Comments: This test was performed using the TPSA method for FusionOne chemistry system.Values obtained with different assay methods cannot be usedinterchangably.When changing PSA assays in the course of monito ring apatient, additionaly sequential testing should be carriedout to confirm baseline values. :35 ROUTINE UA BILIRUBIN URINE SeeNote (Normal) Comments: Result: NEGATIVE CLARITY CLEAR (Normal) COLOR YELLOW (Normal) GLUCOSE, UR SeeNote (Normal) Comments: Result: NEGATIVE KETONE UR 1+ mg/dL (Abnormal) LEUK ESTERASE SeeNote (Normal) Comments: Result: NEGATIVE NITRITE UR SeeNote (Normal) Comments: Result: NEGATIVE OCCULT BLOOD-UR SeeNote (Normal) Comments: Result: NEGATIVE pH UR 5.5 (Normal) Range: 5.0-8.0 PROT DIPSTX SeeNote (Normal) Comments: Result: NEGATIVE SP.GR. DIPSTX >=1.030 (Normal) Range: 1.002-1.030 UROBILI 0.2 EU/dl (Normal) Range: 0.2 - 1.0 Plan of Care Name Dates Details Instructions Abnormal cardiac function test : Eprescribed prescriptions (G8553) Indication: Abnormal cardiac function test BMI 27.0-27.9,adult : Eprescribed prescriptions (G8553) Indication: BMI 27.0-27.9,adult Urticaria : Eprescribed prescriptions (G8553) Indication: Urticaria Urticaria : Eprescribed prescriptions (G8553) Indication: Urticaria Vitamin D deficiency : Eprescribed prescriptions (G8553) Indication: Vitamin D deficiency Nonsmoker : Eprescribed prescriptions (G8553) Indication: Nonsmoker Hypertension, benign : Eprescribed prescriptions (G8553) Indication: Hypertension, benign [facility] WELLNESS EXAM : Eprescribed prescriptions (G8553) Indication: [facility] WELLNESS EXAM Acquired hypothyroidism : Eprescribed prescriptions (G8553) Indication: Acquired hypothyroidism Hypertension, benign : Eprescribed prescriptions (G8553) Indication: Hypertension, benign Hypercholesterolemia : Flu Shots (Influenza Vaccine): flu shot Indication: Hypercholesterolemia Hypercholesterolemia : Flu (Influenza) *: influenza Indication: Hypercholesterolemia Hypercholesterolemia : Eprescribed prescriptions (G8553) Indication: Hypercholesterolemia Encounter for immunization : Shingles Vaccine Education 2005 Indication: Encounter for immunization Physical exam, routine : Health Maintenance: Controlling Cholesterol: arteries Indication: Physical exam, routine Pulmonary embolism : Pulmonary Embolism *: lungs Indication: Pulmonary embolism Hypertension, benign : Diet and Exercise Indication: Hypertension, benign Allergic rhinitis : FOLLOW UP IN 3 MONTHS Indication: Allergic rhinitis Planned Observations PT (Prothrobim Time) ([id number])Indication: Deep vein thrombosis, unspecified laterality On: 32-Ygo-81452:00 Request Comments: Standing ORder CBC W/AUTO DIFF WBC (55646)Indication: Hypertension, benign On: 14-Sdt-87532:28 Request METABOLIC PANEL, COMPREHENSIVE (68008)Indication: Elevated alkaline phosphatase level On: 17-Fhn-66238:28 Request LIPID PANEL (30309)Indication: Hypercholesterolemia On: 10-Rfo-81711:28 Request FECAL OCCULT- Tubes sent home (55557)Indication: screening On: 08-Rab-442690:47 Request PSA (PROSTATE SPECIFIC ANTIGEN) (V76.44)Indication: Encounter for screening for malignant neoplasm of prostate (Renamed from Screening for prostate cancer) On: 93-Nwy-211002:29 Request GGT (Gamma Glutamyl Transferase) (86858)Indication: Elevated alkaline phosphatase level On: 60-Okc-028724:26 Request ALKALINE PHOSPHATASE (09584)Indication: Elevated alkaline phosphatase level On: 79-Kqn-448452:22 Request Alkaline Phosphatase (97010)Indication: Blood chemistry abnormality (Renamed from Abnormal blood chemistry level) On: 98-Rsk-326647:13 Request Comments: 2 months PT (Prothrobim Time) ([id number])Indication: Deep vein thrombosis, unspecified laterality On: 21-Mar-2016 Request Comments: standing order PT (Prothrobim Time) ([id number])Indication: Deep vein thrombosis, unspecified laterality On: 20-Feb-2016 Request Comments: standing order METABOLIC PANEL, COMPREHENSIVE ([id number])Indication: Hyperkalemia On: 26-Jan-20167:45 Request Comments: stat GGT (Gamma Glutamyl Transferase) ([id number])Indication: Blood chemistry abnormality (Renamed from Abnormal blood chemistry level) On: 26-Jan-20167:30 Request PT (Prothrobim Time) ([id number])Indication: Deep vein thrombosis, unspecified laterality On: 21-Jan-2016 Request Comments: standing order PT (Prothrobim Time) ([id number])Indication: Deep vein thrombosis, unspecified laterality On: 22-Dec-2015 Request Comments: standing order PT (Prothrobim Time) ([id number])Indication: ANTEPARTUM DEEP VEIN THROMBOSIS On: 16-Jan-2015 Request Comments: standing order POTASSIUM SERUM ([id number])Indication: Hyperkalemia On: 12-Rep-551858:34 Request Prostate Specific Ag, Complexed ([id number])Indication: Hypertension, benign On: 64-Bfe-162317:15 Request URINALYSIS, W/ MICRO ([id number])Indication: Hypertension, benign On: :18 Request LIPID PANEL ([id number])Indication: Hypercholesterolemia On: :17 Request CBC WITH MANUAL DIFF ([id number])Indication: Hypertension, benign On: :17 Request METABOLIC PANEL, COMPREHENSIVE ([id number])Indication: Hypertension, benign On: :17 Request PSA (PROSTATE SPECIFIC ANTIGEN) (V76.44)Indication: Screening for prostate cancer On: :17 Request LIPID PANEL ([id number])Indication: Hypercholesterolemia On: :32 Request METABOLIC PANEL, COMPREHENSIVE ([id number])Indication: Benign essential hypertension On: :32 Request CBC WITH MANUAL DIFF ([id number])Indication: Hypertension, benign On: :51 Request METABOLIC PANEL, COMPREHENSIVE ([id number])Indication: Hypertension, benign On: :43 Request PSA (PROSTATE SPECIFIC ANTIGEN) (V76.44)Indication: Benign prostatic hyperplasia with urinary obstruction and other lower urinary tract symptoms On: :43 Request HEPATIC FUNCTION PANEL ([id number])Indication: Hypercholesterolemia On: :40 Request LIPID PANEL ([id number])Indication: Hypercholesterolemia On: :40 Request HEPATIC FUNCTION PANEL ([id number])Indication: Hypercholesterolemia On: :44 Request LIPID PANEL ([id number])Indication: Hypercholesterolemia On: :44 Request PT/INR, Office ([id number])Indication: Pulmonary embolism On: :34 Request PT/INR, Office ([id number])Indication: Pulmonary embolism On: 31-Mos-544946:42 Request TSH ([id number])Indication: Urticaria, unspecified On: 74-Hbm-227356:30 Request CBC WITH MANUAL DIFF ([id number])Indication: Hypertension, benign On: :30 Request METABOLIC PANEL, COMPREHENSIVE ([id number])Indication: Hypertension, benign On: 96-Cwq-229132:30 Request LIPID PANEL ([id number])Indication: Hypercholesterolemia On: 92-Kun-078025:30 Request PSA (PROSTATE SPECIFIC ANTIGEN) (V76.44)Indication: Benign prostatic hyperplasia with urinary obstruction and other lower urinary tract symptoms On: 40-Lit-608408:30 Request PT/INR, Office ([id number])Indication: Pulmonary embolism On: 93-Gsg-381684:10 Request METABOLIC PANEL, COMPREHENSIVE ([id number])Indication: Hypertension, benign On: 54-Vol-653262:31 Request CBC WITH MANUAL DIFF ([id number])Indication: Pulmonary embolism On: 63-Mjh-435311:25 Request HEPATIC FUNCTION PANEL ([id number])Indication: Hypercholesterolemia On: :25 Request LIPID PANEL ([id number])Indication: Hypercholesterolemia On: 83-Hkx-659155:25 Request LIPID PANEL ([id number])Indication: Hypercholesterolemia On: :43 Request TSH ([id number])Indication: Hypertension, benign On: :43 Request URINALYSIS W/O MICRO ([id number])Indication: Hypertension, benign On: :42 Request METABOLIC PANEL, COMPREHENSIVE ([id number])Indication: Hypertension, benign On: :42 Request CBC WITH MANUAL DIFF ([id number])Indication: Hypertension, benign On: :42 Request TSH ([id number])Indication: Hypertension, benign On: Request URINALYSIS W/O MICRO ([id number])Indication: Hypertension, benign On: : Request METABOLIC PANEL, COMPREHENSIVE ([id number])Indication: Hypertension, benign On: : Request CBC WITH MANUAL DIFF ([id number])Indication: Hypertension, benign On: : Request LIPID PANEL ([id number])Indication: Hypercholesterolemia On: Request PSA (PROSTATE SPECIFIC ANTIGEN)Indication: Benign prostatic hyperplasia with urinary obstruction and other lower urinary tract symptoms On: Request HEPATIC FUNCTION PANEL ([id number])Indication: Hypercholesterolemia On: : Request LIPID PANEL ([id number])Indication: Hypercholesterolemia On: : Request CBC WITH MANUAL DIFF ([id number])Indication: Benign essential hypertension On: : Request URINALYSIS W/O MICRO ([id number])Indication: Benign essential hypertension On: : Request METABOLIC PANEL, COMPREHENSIVE ([id number])Indication: Benign essential hypertension On: : Request Planned Encounters Medical; [facility] 4 Month Fu - On: 23-Oct-2018 7:00 [facility] Shola DO, Radha A Fast DO, Radha A Planned Procedures ELECTROCARDIOGRAM, COMPLETE (ECG) On: 05-Jun-2018 Intent ([id number])By: Shola DO, Radha A Fast Comments: ekg showed normal sinus rhythym, normal axis, no acute st/t wave changes DO, Radha A Flu Vaccine (Quadrivalent) [id number]: On: 05-Jun-2018 Intent Shloa DO, Radha A Fast DO, Radha A Solu -Medrol Injection, 125 mg On: 06-Feb-2018 Intent ([id number])By: Shola DO Radha A Fast Comments: lot: [id number]: ite/route: RGM/IMamt: 2mLVIS signed when applicableNORIS Goldstein DO, Radha A Nuclear Medicine - Bone ScanBy: On: 16-Jun-2017 Intent Fast DO, Radha A Fast DO, Radha A ELECTROCARDIOGRAM, COMPLETE (ECG) On: 16-Jun-2017 Intent ([id number])By: Shola DO, Radha A Fast Comments: ekg showed normal sinus rhythym, normal axis, no acute st/t wave changes DO, Radha A Flu Vaccine (Quadrivalent) [id number]: On: 16-Jun-2017 Intent Fast DO, Radha A Fast DO, Radha A Comments: Lot #:[id number] date:01/05/18Amount given:0.5mlRoute: IMSite given: left deltoidGiven by: ELICEO García Flu Vaccine (Quadrivalent) [id number]: On: 05-Apr-2016 Intent Fast DO, Radha A Fast DO, Radha A Comments: Lot #:[id number] date:12/2016Amount given:0.5mlRoute: IMSite given: left deltoidGiven by: ELICEO García ADMINISTRATION OF INFLUENZA VIRUS On: 05-Apr-2016 Intent VACCINE ([id number])By: Fast DO, Radha A Fast DO, Radha A Flu Vaccine (Quadrivalent) [id number]: On: 28-Apr-2015 Intent Fast DO, Radha A Fast DO, Radha A Comments: Lot [id number] 12/03left dltdIMprefJOSE FRANCISCO bradley ADMINISTRATION OF INFLUENZA VIRUS On: 28-Apr-2015 Intent VACCINE ([id number])By: Fast DO, Radha A Fast DO, Radha A EKG ([id number])By: Fast DO, Radha A On: 28-Apr-2015 Intent Fast DO, Radha A Comments: ekg showed normal sinus rhythym, normal axis, no acute st/t wave changes IMMUNIZ ADMNIN, 1 VAC, SNGL/COMBO On: 04-May-2014 Intent ([id number])By: Visit, Nurse Comments: Lot #[id number]-L dltd, IMDose prefilled syringegiven by:JAMMIE AkinsNVIS and ABN signed FLU VAC, SPLIT, >3 YEARS, INTRAMUSC On: 04-May-2014 Intent ([id number])By: Visit, Nurse IMMUNIZ ADMNIN, 1 VAC, SNGL/COMBO On: 04-Mar-2014 Intent ([id number])By: Fast DO, Radha A Fast DO, Radha A ZOSTER VACC, [place] ([id number])By: Shola DO, On: 04-Mar-2014 Intent Radha A Fast DO, Radha A Comments: Lot:[id number]:09/29/2014Dose:0.65Route:sub qSite:l armGiven By:MARION signed PNEUM VAC ADLT/IMUMNOSPR, SBC/INTRM On: 28-Jun-2013 Intent ([id number])By: Fast DO, Radha A Fast Comments: Lot:[id number]:03/11/14Dose:0.5mgRoute:imSite:l armGiven By:MARION signed DO, Radha A IMMUNIZ ADMNIN, 1 VAC, SNGL/COMBO On: 28-Jun-2013 Intent ([id number])By: Fast DO, Radha A Fast DO, Radha A Eprescribed prescriptions On: 28-Jun-2013 Intent ([id number])By: Angelita Hernandez DXA, BONE DENSITY, AXIAL SKELETON On: 14-Apr-2013 Intent ([id number])By: Fast DO Radha A Fast Comments: hx of compression fracture DO, Radha A FLU VAC, SPLIT, >3 YEARS, INTRAMUSC On: 14-Apr-2013 Intent ([id number])By: Sylvie Cary Comments: Lot #:[id number] date:mount given:0.5mlRoute: IMSite given: L dltdVIS and ABN signedGiven by: ELICEO García IMMUNIZ ADMNIN, 1 VAC, SNGL/COMBO On: 14-Apr-2013 Intent ([id number])By: Sylvie Cary Eprescribed prescriptions On: 14-Apr-2013 Intent ([id number])By: Sylvie Cary FLU VAC, SPLIT, >3 YEARS, INTRAMUSC On: 08-Jun-2012 Intent ([id number])By: Terri Webber Comments: Lot:[id number]:01.17.13Dose:prefilledRoute:IMSite:L DltdGiven By:MARION signed IMMUNIZ ADMNIN, 1 VAC, SNGL/COMBO On: 08-Jun-2012 Intent ([id number])By: Terri Webber Eprescribed prescriptions On: 03-Apr-2012 Intent ([id number])By: Sylvie Cary Anoscopy ([id number])By: Raeann, On: 23-Dec-2011 Intent Sylvie Wax CurettesBy: Ciesa Evelin VARNER On: 20-Sep-2011 Intent Ear Irrigation ([id number])By: Ciesa On: 20-Sep-2011 Intent Evelin VARNER Cartoid DopplerBy: Fast DO, Radha A On: 30-Aug-2011 Intent Fast DO, Radha A EKG ([id number])By: Sylvie Cary On: 30-Aug-2011 Intent Comments: ekg showed normal sinus rhythym, normal axis, no acute st/t wave changes TDAP VACCINE >7 IM ([id number])By: On: 07-May-2011 Intent Angie Whitaker LPN Comments: Lot #[id number]-3/20/13Site-right deltoidgiven by: Carisa Whitaker LPN FLU VAC, SPLIT, >3 YEARS, INTRAMUSC On: 07-May-2011 Intent ([id number])By: Angie Whitaker LPN Comments: Lot #[id number]-0/30/12Site-left deltoidgiven by: Carisa Whitaker LPN IMMUNIZ ADMNIN, 1 VAC, SNGL/COMBO On: 07-May-2011 Intent ([id number])By: Angie Whitaker LPN IMMUNIZ ADMNIN, 1 VAC, SNGL/COMBO On: 24-Apr-2010 Intent ([id number])By: Vivian Davis LPN Comments: Lot #[id number]-/11Site-L dltdDose0.5mlgiven by:PRATIK FLU VAC, SPLIT, >3 YEARS, INTRAMUSC On: 24-Apr-2010 Intent ([id number])By: Vivian Davis LPN EKG ([id number])By: Fast DO, Radha A On: 15-Mar-2010 Intent Fast DO, Radha A Comments: ekg showed normal sinus rhythym, normal axis, no acute st/t wave changes EKG ([id number])By: Sylvie Cary On: 28-Feb-2009 Intent Comments: ekg showed normal sinus rhythym, normal axis, no acute st/t wave changesnonspecific t wave inferior unchanged EKG ([id number])By: Sylvie Cary On: 20-Nov-2007 Intent Comments: ekg showed normal sinus rhythym, normal axis, no acute st/t wave changes first degree av block Venous Doppler - LowerBy: Fast DO, On: 10-Aug-2007 Intent Radha A Fast DO, Radha A FLU VAC, SPLIT, >3 YEARS, INTRAMUSC On: 28-Jul-2007 Intent ([id number])By: Betty Cisneros Comments: given in left deltoid, 0.5cc, lot#[id number], exp.6.30.08--WF IMMUNIZ ADMNIN, 1 VAC, SNGL/COMBO On: 28-Jul-2007 Intent ([id number])By: Betty Cisneros Planned Medications INJECTION, METHYLPREDNISOLONE SODIUM SUCCINATE, UP TO 125 MG Ordered: 06-Feb-2018 Pending Fast DO, Radha A Fast DO, Radha A Instructions Name Dates Details Abnormal cardiac function test : How to access health information online Indication: Abnormal cardiac function test Abnormal cardiac function test : How to access health information online - Detail Indication: Abnormal cardiac function test Abnormal cardiac function test : Patient Instructions Indication: Abnormal cardiac function test BMI 27.0-27.9,adult : How to access health information online Indication: BMI 27.0-27.9,adult BMI 27.0-27.9,adult : How to access health information online - Detail Indication: BMI 27.0-27.9,adult BMI 27.0-27.9,adult : Patient Instructions Indication: BMI 27.0-27.9,adult Urticaria : How to access health information online Indication: Urticaria Urticaria : How to access health information online - Detail Indication: Urticaria Urticaria : Patient Instructions Indication: Urticaria Urticaria : How to access health information online Indication: Urticaria Urticaria : How to access health information online - Detail Indication: Urticaria Urticaria : Patient Instructions Indication: Urticaria Vitamin D deficiency : How to access health information online Indication: Vitamin D deficiency Vitamin D deficiency : How to access health information online - Detail Indication: Vitamin D deficiency Vitamin D deficiency : Patient Instructions Indication: Vitamin D deficiency Nonsmoker : How to access health information online Indication: Nonsmoker Nonsmoker : How to access health information online - Detail Indication: Nonsmoker Nonsmoker : Patient Instructions Indication: Nonsmoker Hypertension, benign : How to access health information online Indication: Hypertension, benign Hypertension, benign : How to access health information online - Detail Indication: Hypertension, benign Hypertension, benign : Patient Instructions Indication: Hypertension, benign [facility] EXAM : How to access health information online Indication: [facility] EX[facility] EXAM : How to access health information online - Detail Indication: [facility] EXAM [facility] EXAM : Patient Instructions Indication: [facility] EXAM Acquired hypothyroidism : How to access health information online Indication: Acquired hypothyroidism Acquired hypothyroidism : How to access health information online - Detail Indication: Acquired hypothyroidism Acquired hypothyroidism : Patient Instructions Indication: Acquired hypothyroidism Hypertension, benign : How to access health information online Indication: Hypertension, benign Hypertension, benign : How to access health information online - Detail Indication: Hypertension, benign Hypertension, benign : Patient Instructions Indication: Hypertension, benign Hypercholesterolemia : Patient Instructions Indication: Hypercholesterolemia Benign essential hypertension : Patient Instructions Indication: Benign essential hypertension Physical exam, routine : Patient Instructions Indication: Physical exam, routine Benign essential hypertension : Patient Instructions Indication: Benign essential hypertension Hypertension, benign : Patient Instructions Indication: Hypertension, benign Encounters Office Visit On: 30-Jun-2018 11:18 Encounter Reason: Follow up tests - Diagnostic tests include other (calcium scoring). Date: (06/2018). Note for Discuss procedure results: no symptoms and has been exercising hardEncounter Diagnosis: Nonsmoker, BMI 27.0-27.9,adult, End: 30-Jun-2018 12:37 Abnormal cardiac function test [facility] Review On: 05-Jun-2018 7:18 Encounter Reason: Physical male exam - General health: feels well with no complaints, has good energy level and is sleeping well (average). The patient's appetite is normal. Nutrition: appropriate balanced diet. Exercise s 3 (2-4) days per week. Sleeps on average 5 (5-6) hours per night. Normal bowel and bladder habits. Safety measures include appropriate use of safety belts and home smoke detectors. There are no curren t emotional problems. The patient's libido is normal. Preventative measures done by patient are screening, colonoscopy (2013- due in 10 years), screening, visual acuity (yearly with eye dr), PSA (yearly here) and rectal exam (yearly). Note for Physical exam: [facility] Physical- weight down 4 pounds- his bp is good- he is walking alot- but not going to gym like he was -- but very active - he plans on retiring in 21/ years --- TOLERATING MEDS Encounter Diagnosis: Nonsmoker, BMI 27.0-27.9,adult, Need for prophylactic vaccination and inoculation against influenza (Renamed from Need for immunization against influenza), Encounter for screening for malignant neoplasm of prostate (Renamed from Screening for prostate cancer), [facility] WELLNESS EXAM, Urticaria, Elevated alkaline phosphatase level, Hypertension, benign, Hypercholesterolemia, Vitamin D deficiency, Acquired hypothyroidism [facility] Office Visit On: 06-Feb-2018 7:01 Encounter Reason: Follow up acute care visit - The patient does not feel well. Patient has been compliant with instructions. Current medication use: experiencing side effects (maybe not s/e however hives seem worse at ni End: 08-Feb-2018 20:53 ght since prednisone). Impact of disease: emotional impact-mild. The medical issues the patient is following up for include other (hives). Note for Follow up acute care visit: Was in clinic previously and started on prednisone. Noticing worsening symptoms at night. Has vacation coming up and would like improvement for that.- started wed and hives gone later in day- had very stressful week- th am little bit hives- then last night came back heavy and worse this am - toleratig prednisone pretty well- willing to go up on dose and tolerated salvatore capps- Encounter Diagnosis: Urticaria, Nonsmoker, BMI 27.0-27.9,adult, Erectile dysfunction [facility] Office Visit On: 03-Feb-2018 12:50 Encounter Diagnosis: Urticaria End: 03-Feb-2018 12:54 [facility] Office Visit On: 02-Feb-2018 10:49 Encounter Reason: Skin Lesions - Symptoms include multiple skin lesions. Lesion(s) are located on the left trunk area, left arm, left leg, left foot, right trunk area, right arm, right hand, right leg and right foot. The End: 02-Feb-2018 22:22 patient describes the lesion(s) as itchy, painful and red. Onset was month(s) ago. The patient describes this as unchanged. Note for Skin lesions: has long history of these- used to see Aris Lopez[facility] [place]- he doesnt feel well on pred so didnt want to take them- he gets them periodically- more stress - can get at night- also saw specialist at [facility] for this- he has been using zyrte c and pepcid 20 mg bid - leaving a week from this friday- for vacationEncounter Diagnosis: Nonsmoker, BMI 27.0-27.9,adult, Urticaria, Erectile dysfunction [facility] Phone Encounter On: 26-Jan-2018 13:23 Encounter Diagnosis: Urticaria, unspecified End: 26-Jan-2018 13:28 [facility] Office Visit On: 14-Nov-2017 12:45 Encounter Reason: Follow up tests - Date: (10/2017 blood work)., [ADDITIONAL REASON] Follow up for chronic medical issues - The patient feels well with no complaints End: 16-Nov-2017 20:15 , has good energy level and is sleeping well. Patient has been compliant with instructions. Current medication use: no side effects, compliant with dosing regimen and considered effective by patient. Devin dillard sleeps 6 hours per night. Impact of disease: no overall impact. Nutrition: balanced diet and supplemental vitamins. The medical issues the patient is following up for include All identified proble ms below, depression, high blood pressure and high cholesterol. blood pressure range : (110's/60's to 120/70s- see pt's list). Note for Follow up for chronic medical issues: weight down 3 pounds and t rying bp is better- trying to get more water in - he trying to get back into exercise- -we talked about [employer]- tolerating meds no chest symptoms is walking but feels like he could do better Encounter Diagnosis: Nonsmoker, BMI 27.0-27.9,adult , Vitamin D deficiency, Acquired hypothyroidism, Hypercholesterolemia, Elevated alkaline phosphatase level, Encounter for screening for malignant neoplasm of prostate (Renamed from Screening for prostate cancer), Hypertension, benign, screening [facility] Phone Encounter On: 07-Jul-2017 13:36 Encounter Diagnosis: Elevated alkaline phosphatase level End: 07-Jul-2017 16:26 [facility] Office Visit On: 16-Jun-2017 13:24 Encounter Reason: Physical male exam - General health: feels well with no complaints, has good energy level and is sleeping well. The patient's appetite is normal. Nutrition: appropriate balanced diet. Exercises 4 days p End: 06-Jul-2017 18:58 er week. Sleeps on average 6 hours per night. Normal bowel and bladder habits. Safety measures include appropriate use of safety belts and home smoke detectors. There are no current emotional problems. The patient's libido is normal. Preventative measures done by patient are screening, colonoscopy (2013- due in 10 years), screening, visual acuity (yearly with eye dr), PSA (yearly here) and rectal exam (yearly). Note for Physical exam: [facility]- kept up the frequency of his exercise but maybe not as hard of workouts until the last few months he has tried to get the intensity up again - his blood pressures have been running good- at home - he only had three low 130s out of many blood pressures he did at work and home- he feels well when he is exercising - his hives are back a little- has had most of life still cant rust takes away - comes and goesEncounter Diagnosis: Nonsmoker, [facility]LLNESS EXAM, BMI 28.0-28.9,adult, Need for prophylactic vaccination and inoculation against influenza (Renamed from Need for immunization against influenza), Hypertension, benign, Elevated alkaline phosphatase level, Vitamin D deficiency, Erectile dysfunction, Hypercholesterolemia [facility] Lab Order On: 05-Jun-2017 16:53 Encounter Diagnosis: Hyperkalemia (276.7) End: 05-Jun-2017 16:55 [facility] Office Visit On: 06-Dec-2016 9:33 Encounter Reason: Follow up for chronic medical issues - The patient feels well with no complaints, has good energy level and is sleeping well. Patient has been compliant with instructions. Current medication use: no ricky End: 06-Dec-2016 12:10 e effects, compliant with dosing regimen and considered effective by patient. Patient sleeps 6 hours per night. Impact of disease: no overall impact. Nutrition: balanced diet and supplemental vitamins. The medical issues the patient is following up for include All identified problems below, depression, high blood pressure and high cholesterol. blood pressure range : (110's/60's to 120/70s- see pt's li st). Note for Follow up for chronic medical issues: bps at work are all really fabulous - 110-120xs /60-70s really well controlled - went back to [employer] - there by 645 - 3 days a week- he switche d to xarelto - no issues - -he able to broaden his food horizons -- really working on more water and portion control of nuts- his hives reoccured and stopped 4 months ago- he has some allergies- he feesl good and feels well when exercising, [ADDITIONAL REASON] Follow up, Laboratory Test Results - Date: (11/2016). Encounter Diagnosis: Hypertension, benign, BMI 27.0-27.9,adult, Acquired hypothyroidism, Hypercholesterolemia, Vitamin D deficiency, Blood chemistry abnormality (Renamed from Abnormal blood chemistry level), Encounter for screening for malignant neoplasm of prostate (Renamed from Screening for prostate cancer), Hyperkalemia (276.7) [facility] Phone Encounter On: 09-Apr-2016 10:58 [facility] End: 09-Apr-2016 10:59 Office Visit On: 05-Apr-2016 7:08 Encounter Reason: Physical male exam - General health: feels well with no complaints, has good energy level and is sleeping well. The patient's appetite is normal. Nutrition: normal/adequate. Exercises 4 days per week. S End: 11-Apr-2016 20:09 leeps on average 6 hours per night. Normal bowel and bladder habits. Safety measures include appropriate use of safety belts and home smoke detectors. There are no current emotional problems. The patien t's libido is normal. Note for Physical exam: [facility] Physical- taking bps at work and at home- not much difference most under 130 , [ADDITIONAL REASON] Follow up, Laboratory Test Results - Date: (01/2016). Encounter Diagnosis: Acquired hypothyroidism, Nonsmoker, BMI 26.0-26.9,adult, Pulmonary embolism (415.19), Need for prophylactic vaccination and inoculation against influenza (Renamed from Need for immunization against influenza), Hyperkalemia (276.7), Encounter for screening for malignant neoplasm of prostate (Renamed from Screening for prostate cancer), Dysthymic, Benign essential hypertension (401.1), Hypercholesterolemia, Vitamin D deficiency, [facility] EXAM [facility] Phone Encounter On: 16-Feb-2016 9:03 [facility] End: 16-Feb-2016 9:04 Office Visit On: 26-Jan-2016 7:08 Encounter Reason: Follow up for chronic medical issues - The patient feels well with no complaints, has good energy level and is sleeping well. Patient has been compliant with instructions. Current medication use: no ricky End: 26-Jan-2016 9:55 e effects, compliant with dosing regimen and considered effective by patient. Patient sleeps 6 hours per night. Impact of disease: no overall impact. Nutrition: balanced diet and supplemental vitamins. The medical issues the patient is following up for include All identified problems below, depression, high blood pressure and high cholesterol. blood pressure range : (110's/60's to 120/70s- see pt's li st). Note for Follow up for chronic medical issues: - his bp been checking a lot and all in great range- 110-130/70s- feels well when exercising , [ADDITIONAL REASON] Follow up, Laboratory Test Results - Date: (01/24/16). Encounter Diagnosis: Acquired hypothyroidism, BMI 26.0-26.9,adult, Nonsmoker, Hypercholesterolemia, Hyperkalemia (276.7), Blood chemistry abnormality (Renamed from Abnormal blood chemistry level), Hypertension, benign [facility] Phone Encounter On: 13-Nov-2015 10:53 Encounter Diagnosis: Unspecified Diagnosis End: 13-Nov-2015 10:55 [facility] Phone Encounter On: 10-Nov-2015 10:21 [facility] End: 10-Nov-2015 10:22 Phone Encounter On: 03-Nov-2015 9:55 [facility] End: 03-Nov-2015 9:57 Phone Encounter On: 08-Sep-2015 9:10 [facility] End: 08-Sep-2015 9:11 Phone Encounter On: 28-Jul-2015 9:30 [facility] End: 28-Jul-2015 9:33 Phone Encounter On: 09-Jun-2015 12:07 Encounter Diagnosis: Hypothyroidism End: 09-Jun-2015 12:25 [facility] Office Visit On: 28-Apr-2015 10:30 Encounter Reason: Follow up for chronic medical issues - The patient feels well with no complaints, has good energy level and is sleeping well. Patient has been compliant with instructions. Current medication use: no ricky End: 30-Apr-2015 22:04 e effects, compliant with dosing regimen and considered effective by patient. Patient sleeps 6 hours per night. Impact of disease: no overall impact. Nutrition: balanced diet and supplemental vitamins. The medical issues the patient is following up for include All identified problems below, depression, high blood pressure and high cholesterol. blood pressure range : (110's/60's to 120/70s- see pt's kayleen martinez). Note for Follow up for chronic medical issues: bp has been monitored at home for last 3 weeks and back at [facility]- 120/70- average and 127/73 at work on average - he working out 3 days a week - plus walks at work- hives gone and off the meds - he not fatigue - he doesnt sleep but 5-6 hours a night - he feels refreshed juanjose, [ADDITIONAL REASON] Follow up, Laboratory Test Results - Date: (04/2015). Encounter Diagnosis: Deep vein thrombosis, unspecified laterality, Hypertension, benign, Need for prophylactic vaccination and inoculation against influenza (Renamed from Need for immunization against influenza), Abnormal TSH, Hypercholesterolemia [facility] Phone Encounter On: 26-Apr-2015 11:05 Encounter Diagnosis: Deep vein thrombosis, unspecified laterality End: 26-Apr-2015 11:09 [facility] Phone Encounter On: 24-Mar-2015 10:40 [facility] End: 24-Mar-2015 10:42 Lab Order On: 23-Mar-2015 9:45 Encounter Diagnosis: DVT (deep venous thrombosis) End: 23-Mar-2015 9:47 [facility] Phone Encounter On: 17-Mar-2015 9:55 [facility] End: 17-Mar-2015 9:57 Phone Encounter On: 10-Feb-2015 9:37 [facility] End: 10-Feb-2015 9:38 Historical Summary On: 23-Jan-2015 16:33 [facility] End: 23-Jan-2015 16:37 Phone Encounter On: 23-Dec-2014 9:02 [facility] End: 23-Dec-2014 9:08 Lab Order On: 07-Nov-2014 11:33 Encounter Diagnosis: Hyperkalemia (276.7) End: 07-Nov-2014 11:34 [facility] Lab Order On: 03-Nov-2014 7:28 Encounter Diagnosis: Hyperkalemia (276.7) End: 03-Nov-2014 7:29 [facility] Phone Encounter On: 24-Oct-2014 17:53 [facility] End: 24-Oct-2014 17:59 Office Visit On: 13-Oct-2014 8:49 Encounter Reason: Follow up for chronic medical issues - The patient feels well with no complaints, has good energy level and is sleeping well. Patient has been compliant with instructions. Current medication use: no ricky End: 13-Oct-2014 10:51 e effects, compliant with dosing regimen and considered effective by patient. Patient sleeps 6 hours per night. Impact of disease: no overall impact. Nutrition: balanced diet and supplemental vitamins. The medical issues the patient is following up for include All identified problems below, depression, high blood pressure and high cholesterol. blood pressure range : (110's/60's to 120/70s- see pt's li st). Note for Follow up for chronic medical issues: weight down and really working it - exercising 3 times a week- - good year at work- he is monitoring bp at work and at home- and acutally both reall y good only one 140 out of 25 bps -- good - his potassium up again- he is watching- , [ADDITIONAL REASON] Follow up, Laboratory Test Results - Date: (10/11/14). Encounter Diagnosis: Hypercholesterolemia (272.0), Hyperkalemia (276.7), Benign essential hypertension (401.1), Pulmonary embolism (415.19), Abnormal TSH (794.5), Unspecified urticaria (708.9), ANTEPARTUM DEEP VEIN THROMBOSIS (671.3) [facility] Phone Encounter On: 12-Oct-2014 16:02 [facility] End: 12-Oct-2014 16:03 Phone Encounter On: 09-Sep-2014 13:52 [facility] End: 09-Sep-2014 13:54 Phone Encounter On: 19-Aug-2014 13:55 [facility] End: 19-Aug-2014 14:00 Phone Encounter On: 19-Aug-2014 9:47 [facility] End: 19-Aug-2014 9:49 Phone Encounter On: 12-Aug-2014 7:59 [facility] End: 12-Aug-2014 8:05 Phone Encounter On: 05-Aug-2014 12:27 Encounter Diagnosis: Pulmonary embolism (415.19) End: 05-Aug-2014 12:31 [facility] Phone Encounter On: 24-Jun-2014 9:14 [facility] End: 24-Jun-2014 9:15 Phone Encounter On: 27-May-2014 15:01 [facility] End: 27-May-2014 15:05 Office Visit On: 04-May-2014 13:47 Encounter Reason: InjectionsEncounter Diagnosis: Need for prophylactic vaccination and inoculation against influenza (V04.81) End: 04-May-2014 13:49 [facility] Phone Encounter On: 22-Apr-2014 8:25 [facility] End: 22-Apr-2014 8:26 Lab Order On: 21-Apr-2014 8:01 Encounter Diagnosis: ANTEPARTUM DEEP VEIN THROMBOSIS (671.3) End: 21-Apr-2014 8:02 [facility] Phone Encounter On: 18-Apr-2014 13:20 [facility] End: 18-Apr-2014 13:23 Phone Encounter On: 15-Apr-2014 10:26 [facility] End: 15-Apr-2014 10:27 Office Visit On: 04-Mar-2014 7:29 Encounter Reason: Follow up for chronic medical issues - The patient feels well with minor complaints (chronic itching in groin area- econazole cream not really working like it used to- needs alternative), has good energ End: 04-Mar-2014 9:10 y level and is sleeping well. Patient has been compliant with instructions. Current medication use: no side effects, compliant with dosing regimen and considered effective by patient. Patient sleeps 6 h ours per night. Impact of disease: no overall impact. Nutrition: balanced diet and supplemental vitamins. The medical issues the patient is following up for include All identified problems below, depres reanna, high blood pressure and high cholesterol. blood pressure range : (110's/60's to 120/70s- see pt's list). Note for Follow up for chronic medical issues: bps at home really good - he is exercising routinely - was told by Fuad - that the rash in groin is seborrhea, [ADDITIONAL REASON] Follow up, Laboratory Test Results - Date: (03/02/14). Encounter Diagnosis: Benign essential hypertension (401.1), Tinea Cruris (110.3), Pulmonary embolism (415.19), Unspecified urticaria (708.9), Hypercholesterolemia (272.0), SCREENING FOR CANCER OF THE PROSTATE (V76.44), SHINGLES,NEED FOR PROPHYLACTIC VACCINATION AND INOCULATION AGAINST (V05.8) [facility] Phone Encounter On: 03-Mar-2014 10:44 [facility] End: 03-Mar-2014 10:45 Office Visit On: 04-Feb-2014 13:22 [facility] End: 04-Feb-2014 13:31 Phone Encounter On: 28-Jan-2014 15:57 [facility] End: 28-Jan-2014 16:02 Phone Encounter On: 24-Dec-2013 9:38 [facility] End: 24-Dec-2013 9:40 Phone Encounter On: 17-Dec-2013 10:43 [facility] End: 17-Dec-2013 10:44 Phone Encounter On: 12-Nov-2013 16:02 [facility] End: 12-Nov-2013 16:03 Phone Encounter On: 06-Sep-2013 11:16 Encounter Diagnosis: Unspecified Diagnosis End: 06-Sep-2013 11:19 [facility] Phone Encounter On: 03-Sep-2013 15:38 [facility] End: 03-Sep-2013 15:40 Office Visit On: 28-Jun-2013 9:08 Encounter Reason: Physical male exam - Last seen between 1-3 months ago. General health: feels well with no complaints, has good energy level and is sleeping well. The patient's appetite is normal. Nutrition: normal/adeq End: 28-Jun-2013 10:19 uate. Exercises 4 days per week. Sleeps on average 6 hours per night. Normal bowel and bladder habits. There are no current emotional problems. Preventative measures done by patient are screening, colonoscopy (2011 Dr Howard) and PSA (04/12/13). Encounter Diagnosis: Hypercholesterolemia (272.0), PHYSICAL EXAM, ROUTINE (V70.0), Abnormal TSH (794.5), Benign essential hypertension (401.1) [facility] Phone Encounter On: 22-Apr-2013 13:00 Encounter Diagnosis: Pulmonary embolism (415.19) End: 22-Apr-2013 13:04 [facility] Office Visit On: 14-Apr-2013 11:04 Encounter Reason: Follow up for chronic medical issues - The patient feels well with no complaints, has good energy level and is sleeping well. Patient has been compliant with instructions. Current medication use: no ricky End: 15-Apr-2013 21:20 e effects, compliant with dosing regimen and considered effective by patient. Patient sleeps 6 hours per night. Impact of disease: no overall impact. Nutrition: balanced diet and supplemental vitamins. The medical issues the patient is following up for include All identified problems below, depression, high blood pressure and high cholesterol. blood pressure range : (110's/60's to 120/70s- see pt's kayleen martinez). Note for Follow up for chronic medical issues: he saw Lee and had colonsocopy- and was ok put him on miralax and no more hemmies- no polyps and no more bleeding - doing healhtpoint - - still g etting in 4 dfays a week exercising- = still doing protein shakes- he is feeling really good- mood good met new girl no hives 3 last months, [ADDITIONAL REASON] Follow up, Laboratory Test Results - Date: (04/12/13). Encounter Diagnosis: Benign essential hypertension (401.1), Need for prophylactic vaccination and inoculation against influenza (V04.81), Pulmonary embolism (415.19), High risk medication use (V58.69), Depression/Anxiety (300.4), Hypercholesterolemia (272.0), BPH (600.01) [facility] Phone Encounter On: 07-Apr-2013 15:07 Encounter Diagnosis: Hypercholesterolemia (272.0), BPH (600.01), Benign essential hypertension (401.1) End: 07-Apr-2013 15:09 [facility] Office Visit On: 08-Jun-2012 11:09 Encounter Reason: Injections - The medication the patient is here to receive is other (flu shot).Encounter Diagnosis: Need for prophylactic vaccination and inoculation against influenza (V04.81) End: 08-Jun-2012 11:23 [facility] Office Visit On: 03-Apr-2012 11:16 Encounter Reason: Follow up for chronic medical issues - The patient feels well with no complaints, has good energy level and is sleeping well. Patient has been compliant with instructions. Current medication use: no ricky End: 05-Apr-2012 21:14 e effects, compliant with dosing regimen and considered effective by patient. Patient sleeps 6 hours per night. Impact of disease: no overall impact. Nutrition: balanced diet and supplemental vitamins. The medical issues the patient is following up for include All identified problems below, depression, high blood pressure and high cholesterol. blood pressure range : (110's/60's to 130's/80's- see pt's list). Note for Follow up for chronic medical issues: weight down and really trying - exercising 3plus times a week and drinking alot of water- with this the hemmies have been a bit better - 6/10 bps were perfect 4 of just borderline - just few points ofver - still having some intermittent pink with wiping and on stool, [ADDITIONAL REASON] Follow up, Laboratory Test Results - Date: (04/01/12). Encounter Diagnosis: Pulmonary embolism (415.19), Hypertension,benign(401.1), Rectal Bleeding(569.3), Hypercholesterolemia (272.0), Depression/Anxiety (300.4), Unspecified urticaria (708.9), BPH (600.01), Abnormal TSH (794.5), Abnormal blood chemistry (790.6), Hyperkalemia (276.7) [facility] Phone Encounter On: 01-Apr-2012 15:42 Encounter Diagnosis: Pulmonary embolism (415.19) End: 01-Apr-2012 15:45 [facility] Annotation/Addendum On: 01-Apr-2012 14:43 Encounter Diagnosis: Benign essential hypertension (401.1) End: 01-Apr-2012 14:46 [facility] Annotation/Addendum On: 31-Mar-2012 10:12 Encounter Diagnosis: Hypertension,benign(401.1), Hypercholesterolemia (272.0) End: 31-Mar-2012 10:16 [facility] Lab Order On: 05-Mar-2012 11:57 Encounter Diagnosis: Pulmonary embolism (415.19) End: 05-Mar-2012 11:58 [facility] Lab Order On: 13-Feb-2012 8:31 Encounter Diagnosis: Pulmonary embolism (415.19) End: 13-Feb-2012 8:32 [facility] Lab Order On: 28-Jan-2012 10:50 Encounter Diagnosis: Pulmonary embolism (415.19) End: 28-Jan-2012 10:56 [facility] Lab Order On: 13-Jan-2012 11:22 Encounter Diagnosis: Pulmonary embolism (415.19) End: 13-Jan-2012 11:22 [facility] Lab Order On: 30-Dec-2011 14:43 Encounter Diagnosis: Pulmonary embolism (415.19) End: 30-Dec-2011 14:47 [facility] Office Visit On: 23-Dec-2011 12:19 Encounter Reason: Bloody stools - The onset of the bloody stools has been sudden and they have been occurring in an intermittent pattern for months. The course has been recurrent. The bloody stools are characterized as End: 24-Dec-2011 7:29 blood streaking of toilet paper (pink). The symptoms have been associated with change in caliber of stools (hard), hard stools, straining on bowel movements and use of anti-coagulants, while the symptom s have not been associated with abdominal pain, constipation, diarrhea, heartburn, mucus or pus with stool, nausea, painful bowel movements, use of aspirin, use of NSAIDs or vomiting. Note for Bloody s tools : losing more weight and trying - blood is slight pink and just on tp- sttols for ob have been neg- - always happens when has hard bm- hx of hemmie in past - getting some rectal pain when happens - has been eating more protein- no abd pain - never blood on bm or mixed in - - not typically with normal - had colonsocopy 2007- and due next year Encounter Diagnosis: Rectal Bleeding(569.3) [facility] Lab Order On: 19-Dec-2011 9:54 Encounter Diagnosis: Pulmonary embolism (415.19) End: 19-Dec-2011 9:55 [facility] Lab Order On: 09-Dec-2011 11:37 Encounter Diagnosis: Pulmonary embolism (415.19) End: 09-Dec-2011 11:38 [facility] Lab Order On: 02-Dec-2011 11:08 Encounter Diagnosis: Pulmonary embolism (415.19) End: 02-Dec-2011 11:09 [facility] Phone Encounter On: 01-Nov-2011 9:59 [facility] End: 01-Nov-2011 10:00 Lab Order On: 31-Oct-2011 7:10 Encounter Diagnosis: Pulmonary embolism (415.19) End: 31-Oct-2011 7:25 [facility] Lab Order On: 26-Sep-2011 9:32 Encounter Diagnosis: Pulmonary embolism (415.19) End: 26-Sep-2011 9:32 [facility] Office Visit On: 20-Sep-2011 7:17 Encounter Reason: Ear Discharge - The history today is reported by the patient. The last clinic visit was 3 week(s) ago. No changes in management were made at the last visit. Symptoms include ear fullness. Symptoms are l End: 20-Sep-2011 8:13 ocated in the right ear. The patient describes this as mild and unchanged.Encounter Diagnosis: Cerumen impaction (380.4) [facility] Lab Order On: 12-Sep-2011 7:18 Encounter Diagnosis: Pulmonary embolism (415.19) End: 12-Sep-2011 7:23 [facility] Lab Order On: 04-Sep-2011 8:30 Encounter Diagnosis: Pulmonary embolism (415.19) End: 04-Sep-2011 8:31 [facility] Office Visit On: 30-Aug-2011 8:29 Encounter Reason: Follow up for chronic medical issues - The patient feels well with no complaints, has good energy level and is sleeping well. Patient has been compliant with instructions. Current medication use: no ricky End: 01-Sep-2011 19:13 e effects, compliant with dosing regimen and considered effective by patient. Patient sleeps 6 hours per night. Impact of disease: no overall impact. Nutrition: balanced diet and supplemental vitamins. The medical issues the patient is following up for include All identified problems below, depression, high blood pressure and high cholesterol. blood pressure range : (110's/60's to 130's/80's- see pt's list). Note for Follow up for chronic medical issues: rarely has an elevated bp- he is feeling well -weight back down and working hard on it- back on meds for hives karlos gone again, [ADDITIONAL REASON] Follow up, Laboratory Test Results - Date: (08/28/11). Encounter Diagnosis: Hypertension,benign(401.1), Pulmonary embolism (415.19), Depression/Anxiety (300.4), Unspecified urticaria (708.9), Hypercholesterolemia (272.0), SCREENING FOR CANCER OF THE PROSTATE (V76.44), Carotid Bruits (785.9) [facility] Phone Encounter On: 27-Aug-2011 12:44 Encounter Diagnosis: Hypertension,benign(401.1), Hypercholesterolemia (272.0), ANTEPARTUM DEEP VEIN THROMBOSIS (671.3) End: 27-Aug-2011 12:47 [facility] Lab Order On: 14-Aug-2011 11:36 Encounter Diagnosis: Pulmonary embolism (415.19) End: 14-Aug-2011 11:37 [facility] Annotation/Addendum On: 01-Aug-2011 14:52 [facility] End: 01-Aug-2011 14:54 Lab Order On: 31-Jul-2011 11:45 Encounter Diagnosis: Pulmonary embolism (415.19) End: 31-Jul-2011 11:45 [facility] Lab Order On: 24-Jul-2011 11:44 Encounter Diagnosis: Pulmonary embolism (415.19) End: 24-Jul-2011 11:44 [facility] Lab Order On: 20-Jun-2011 10:15 Encounter Diagnosis: Pulmonary embolism (415.19) End: 20-Jun-2011 10:18 [facility] Lab Order On: 10-Jun-2011 13:00 Encounter Diagnosis: Pulmonary embolism (415.19) End: 10-Jun-2011 13:01 [facility] Lab Order On: 29-May-2011 13:14 Encounter Diagnosis: Pulmonary embolism (415.19) End: 29-May-2011 13:15 [facility] Lab Order On: 13-May-2011 11:05 Encounter Diagnosis: Pulmonary embolism (415.19) End: 13-May-2011 11:06 [facility] Phone Encounter On: 08-May-2011 11:52 [facility] End: 08-May-2011 11:54 Erroneous Entry On: 07-May-2011 8:27 Encounter Diagnosis: Pulmonary embolism (415.19) End: 07-May-2011 8:27 [facility] Office Visit On: 07-May-2011 7:58 Encounter Reason: Injections - The medication the patient is here to receive is other (Here to get TDAP and Flu vacine.).Encounter Diagnosis: Need for prophylactic vaccination and inoculation against influenza (V04.81) End: 07-May-2011 8:19 [facility] Erroneous Entry On: 02-May-2011 7:37 Encounter Diagnosis: Pulmonary embolism (415.19) End: 02-May-2011 7:38 [facility] Erroneous Entry On: 26-Apr-2011 7:45 Encounter Diagnosis: Pulmonary embolism (415.19) End: 26-Apr-2011 7:46 [facility] Erroneous Entry On: 10-Apr-2011 9:41 Encounter Diagnosis: Pulmonary embolism (415.19) End: 10-Apr-2011 9:42 [facility] Office Visit On: 04-Apr-2011 13:55 [facility] End: 04-Apr-2011 22:23 Erroneous Entry On: 04-Apr-2011 9:41 Encounter Diagnosis: Pulmonary embolism (415.19) End: 04-Apr-2011 9:46 [facility] Erroneous Entry On: 13-Mar-2011 9:53 Encounter Diagnosis: Pulmonary embolism (415.19) End: 13-Mar-2011 9:54 [facility] Office Visit On: 11-Mar-2011 11:09 Encounter Reason: Follow up for chronic medical issues - The patient feels well with minor complaints (ongoing jock itch- changed to lamasil which helped but still annoyingly itchy.), has good energy level and is sleepin End: 15-Mar-2011 9:45 g well. Patient has been compliant with instructions. Current medication use: no side effects, compliant with dosing regimen and considered effective by patient. Patient sleeps 6 hours per night. Impact of disease: no overall impact. Nutrition: balanced diet and supplemental vitamins. The medical issues the patient is following up for include All identified problems below, depression, high blood press ure and high cholesterol. blood pressure range : (110's/60's to 130's/80's- see pt's list). Note for Follow up for chronic medical issues: he doesnt have much rash at this point more itchiness than an ything- he uses chair maker- and washes routinely- bps are 110/68- rare 130/ usually over 60-70- he is feeling well and exercising ??routinely, [ADDITIONAL REASON] Follow up, Laboratory Test Results - Date: (03/13/11). Encounter Diagnosis: Tinea Cruris (110.3), Hypercholesterolemia (272.0), Benign essential hypertension (401.1), Depression/Anxiety (300.4), BPH (600.01), Colon Polyps, History of (V12.72) [facility] Erroneous Entry On: 07-Feb-2011 11:28 Encounter Diagnosis: Pulmonary embolism (415.19) End: 07-Feb-2011 11:29 [facility] Office Visit On: 14-Jan-2011 8:57 Encounter Reason: Rash - The rash has been occurring in a persistent pattern for 10 weeks. The course has been increasing. The rash is characterized as red.Encounter Diagnosis: Tinea Cruris (110.3) End: 14-Jan-2011 9:15 [facility] Erroneous Entry On: 03-Jan-2011 8:41 Encounter Diagnosis: Pulmonary embolism (415.19) End: 03-Jan-2011 8:42 [facility] Historical Summary On: 07-Dec-2010 16:48 [facility] End: 07-Dec-2010 16:51 Phone Encounter On: 19-Nov-2010 9:11 Encounter Diagnosis: Unspecified Diagnosis End: 19-Nov-2010 9:13 [facility] Erroneous Entry On: 16-Nov-2010 7:39 Encounter Diagnosis: Pulmonary embolism (415.19) End: 16-Nov-2010 7:39 [facility] Office Visit On: 15-Oct-2010 11:58 Encounter Reason: Follow up for chronic medical issues - The patient feels well with minor complaints (ring worm/jock itch is better but not gone- wonders if should continue on powder and cream or try something different End: 15-Oct-2010 22:27 ? Seen Evelin Strange for this.), has good energy level and is sleeping well. Patient has been compliant with instructions. Current medication use: no side effects, compliant with dosing regimen and conside red effective by patient. Patient sleeps 6 hours per night. Impact of disease: no overall impact. Nutrition: balanced diet and supplemental vitamins. The medical issues the patient is following up for i nclude All identified problems below, depression, high blood pressure and high cholesterol. Note for Follow up for chronic medical issues: bps at home are great really nothing out of control- he is fe eling- well when he exercises - and he exercises hard- he gets no chest pain or sob- weight been running about 205 for several mos- he has had no hives even off the meds for 6-8 weeks, [ADDITIONAL REASON] Follow up, Laboratory Test Results - Date: (10/11/10). Encounter Diagnosis: Tinea Cruris (110.3), Pulmonary embolism (415.19), BPH (600.01), Unspecified urticaria (708.9), Hypertension,benign(401.1), Hypercholesterolemia (272.0) , Atypical Nevus(238.2) [facility] Phone Encounter On: 12-Oct-2010 14:14 [facility] End: 12-Oct-2010 14:15 Office Visit On: 03-Sep-2010 11:34 Encounter Reason: Follow up acute care visit - The patient feels the same. Patient has been compliant with instructions. Current medication use: no side effects, compliant with dosing regimen and not considered effective End: 03-Sep-2010 12:10 by patient. Patient sleeps 6 hours per night. The medical issues the patient is following up for include All identified problems below and other (urticaria).Encounter Diagnosis: Rash (782.1) [facility] Phone Encounter On: 04-May-2010 14:49 Encounter Diagnosis: Pulmonary embolism (415.19) End: 04-May-2010 14:50 [facility] Phone Encounter On: 02-May-2010 15:11 Encounter Diagnosis: dvt End: 02-May-2010 15:14 [facility] Annotation/Addendum On: 26-Apr-2010 15:14 [facility] End: 26-Apr-2010 15:59 Office Visit On: 24-Apr-2010 10:07 Encounter Diagnosis: Need for prophylactic vaccination and inoculation against influenza (V04.81) End: 24-Apr-2010 10:12 [facility] Phone Encounter On: 05-Apr-2010 15:01 [facility] End: 05-Apr-2010 15:02 Office Visit On: 15-Mar-2010 9:53 Encounter Reason: Follow up for chronic medical issues - The patient feels well with no complaints. Patient has been compliant with instructions. Current medication use: no side effects ,compliant with dosing regimen and End: 15-Mar-2010 11:59 considered effective by patient. Patient sleeps 6 hours per night. Impact of disease: no overall impact. Nutrition: balanced diet and supplemental vitamins. The medical issues the patient is following up for include All identified problems below ,depression ,high blood pressure and high cholesterol. blood pressure range : (107-138/66-83). Note for Follow up for chronic medical issues: - he is worki ng out hard- at [employer]- and his weight is down and bp is great and great at [facility]- - out of 16 bps only 2 in 130s rest were great- the anxietywith all the exercise is pretty good- he is more at pea ce with things- hehas had no hives -off famotidine and down to qod with xyzal-- he will drop a day for 2 - 4 weeks at a time- he hasnt had any change in urinary stream at this point- up 1-2 times a night and is drinking alot of water Encounter Diagnosis: Hypertension,benign(401.1), Hypercholesterolemia (272.0), Unspecified urticaria (708.9), Pulmonary embolism (415.19), Depression/Anxiety (300.4), BPH (600.01), SCREENING FOR CANCER OF THE PROSTATE (V76.44), Atypical Nevus(238.2) [facility] Phone Encounter On: 13-Mar-2010 17:27 [facility] End: 13-Mar-2010 17:29 Historical Summary On: 06-Mar-2010 17:11 [facility] End: 06-Mar-2010 17:13 Phone Encounter On: 27-Feb-2010 17:34 [facility] End: 27-Feb-2010 17:35 Historical Summary On: 26-Feb-2010 18:05 [facility] End: 26-Feb-2010 18:09 Phone Encounter On: 22-Feb-2010 13:31 [facility] End: 22-Feb-2010 13:45 Phone Encounter On: 20-Feb-2010 13:51 [facility] End: 20-Feb-2010 13:52 Annotation/Addendum On: 14-Feb-2010 15:39 [facility] End: 14-Feb-2010 15:42 Historical Summary On: 17-Jan-2010 17:48 [facility] End: 17-Jan-2010 17:49 Phone Encounter On: 11-Jan-2010 16:01 [facility] End: 11-Jan-2010 16:02 Historical Summary On: 14-Dec-2009 15:48 [facility] End: 14-Dec-2009 15:51 Phone Encounter On: 30-Nov-2009 15:02 [facility] End: 30-Nov-2009 15:04 Phone Encounter On: 16-Nov-2009 16:23 [facility] End: 16-Nov-2009 16:25 Phone Encounter On: 09-Nov-2009 14:12 [facility] End: 09-Nov-2009 14:29 Historical Summary On: 11-Oct-2009 15:05 [facility] End: 11-Oct-2009 15:06 Phone Encounter On: 03-Oct-2009 17:33 [facility] End: 03-Oct-2009 17:35 Office Visit On: 30-Aug-2009 9:11 Encounter Reason: Follow up for chronic medical issues - The patient feels well with no complaints. Patient has been compliant with instructions. Current medication use: no side effects. Patient sleeps 6 hours per night. End: 30-Aug-2009 9:51 Nutrition: balanced diet. The medical issues the patient is following up for include All identified problems below ,depression ,high blood pressure and high cholesterol. Note for Follow up for chronic medical issues: he has stayed on zyxal because when he tried to wean felt little tingly-no hives- he is going to try off again- he is still exercising 3-4 times a week - --his bps have been running- 1 29 highest/82-he is taking weekly- lasst one 117/71- no side effects meds other than occ little mild nose bleed with coumadin-- rare and mildEncounter Diagnosis: Pulmonary embolism (415.19), Hypercholesterolemia (272.0), Depression/Anxiety (300.4), BPH (600.01), Hypertension,benign(401.1) [facility] Phone Encounter On: 29-Aug-2009 13:40 [facility] End: 29-Aug-2009 13:41 Phone Encounter On: 03-Aug-2009 14:53 [facility] End: 03-Aug-2009 14:55 Phone Encounter On: 18-Jul-2009 16:32 [facility] End: 18-Jul-2009 16:34 Historical Summary On: 22-Jun-2009 13:40 [facility] End: 22-Jun-2009 13:42 Office Visit On: 09-Jun-2009 15:24 [facility] End: 11-Jun-2009 21:43 Phone Encounter On: 01-Jun-2009 16:14 [facility] End: 01-Jun-2009 16:15 Phone Encounter On: 25-May-2009 16:05 [facility] End: 25-May-2009 16:06 Phone Encounter On: 11-May-2009 15:23 [facility] End: 11-May-2009 15:25 Phone Encounter On: 05-May-2009 11:01 [facility] End: 05-May-2009 11:02 Office Visit On: 19-Apr-2009 13:50 [facility] End: 19-Apr-2009 14:17 Phone Encounter On: 21-Mar-2009 17:37 [facility] End: 21-Mar-2009 17:38 Office Visit On: 28-Feb-2009 8:06 Encounter Reason: Follow up for chronic medical issues - The patient feels well with no complaints ,has good energy level and is sleeping well. Patient has been compliant with instructions. Current medication use: no ricky End: 28-Feb-2009 9:19 e effects and compliant with dosing regimen. Patient sleeps 5 hours per night. Nutrition: balanced diet ,supplemental vitamins and low salt diet. The medical issues the patient is following up for inclu de All identified problems below ,depression (anxiety) ,high blood pressure ,high cholesterol and other (bph, PE). blood pressure range : (100's/60's to 120's/70's). Note for Follow up for chronic medi lisa issues: he is exercising 3 x a week- he is doing the elliptical and all the machines at [employer]- his bps at home have been fabulous-- he is feeling well and breathing well - he is really watchi ng sodium intake--no hives-- he is taking zyxal and pepcid- we talked about weaning off the meds to see how he does- mood has been good- - he is still not sleeping great but due to his puppy- Encounter Diagnosis: Hypertension,benign(401.1), Allergic Rhinitis(477.9), Pulmonary embolism (415.19), Hypercholesterolemia (272.0) [facility] Office Visit On: 15-Feb-2009 9:43 Encounter Diagnosis: Pulmonary embolism (415.19) End: 15-Feb-2009 10:12 [facility] Nurse Visit (Non-[facility]) On: 09-Feb-2009 8:09 Encounter Reason: Coumadin visit - Denies following symptoms: bruising or prolonged bleeding. Date: (01/26/09). Current medicaion use: compliant with dosing regimen. Encounter Diagnosis: ANTEPARTUM DEEP VEIN THROMBOSIS (671.3) End: 09-Feb-2009 8:49 [facility] Historical Summary On: 27-Jan-2009 13:36 [facility] End: 27-Jan-2009 13:38 Nurse Visit On: 26-Jan-2009 8:03 Encounter Diagnosis: Pulmonary embolism (415.19) End: 26-Jan-2009 8:06 [facility] Nurse Visit On: 29-Dec-2008 8:32 Encounter Diagnosis: Pulmonary embolism (415.19) End: 29-Dec-2008 8:40 [facility] Office Visit On: 06-Dec-2008 7:53 Encounter Reason: Coumadin visit - Denies following symptoms: blood in urine ,bruising ,nausea ,prolonged bleeding or spontaneous bleeding. 3 weeks ago. Encounter Diagnosis: Pulmonary embolism (415.19) End: 06-Dec-2008 8:10 [facility] Office Visit On: 24-Nov-2008 14:41 Encounter Reason: Coumadin visit - Reported the following symptoms spontaneous bleeding (sometimes when blowes nose) , but denies blood in urine ,bruising ,nausea or prolonged bleeding. 2 weeks ago. Current medicaion use End: 24-Nov-2008 14:53 : compliant with dosing regimen and experiencing no side effects. Encounter Diagnosis: Pulmonary embolism (415.19) [facility] Office Visit On: 03-Nov-2008 8:34 Encounter Reason: Coumadin visit - Denies following symptoms: bruising or prolonged bleeding. Date: (10/19/08). Current medicaion use: compliant with dosing regimen. Encounter Diagnosis: Pulmonary embolism (415.19) End: 03-Nov-2008 8:56 [facility] Office Visit On: 19-Oct-2008 8:22 Encounter Reason: Follow up for chronic medical issues - The patient feels well with no complaints ,has good energy level and is sleeping well. Patient has been compliant with instructions. Current medication use: no ricky End: 19-Oct-2008 9:12 e effects and compliant with dosing regimen. Patient sleeps 5 hours per night. Nutrition: balanced diet ,no supplemental vitamins & iron and low salt diet. The medical issues the patient is followin g up for include depression (anxiety) ,high blood pressure ,high cholesterol and other (dvt/pe, allergic rhinitis, bph). blood pressure range : (110's/70's to 120's/80's) and weight :. Note for Follow up for chronic medical issues: he is working hard on low sodium diet and his wt is down 3 pounds- and his blood pressures are averaging 115-120s /70-80-- he is exercising 4-5 x a week for 45-50 minutes at [employer]-- , [ADDITIONAL REASON] Follow up, Laboratory Test Results - Date: (10/14/08). Encounter Diagnosis: Hypercholesterolemia (272.0), dvt, Allergic Rhinitis(477.9), Hypertension,benign(401.1), Unspecified urticaria (708.9), BPH (600.01), SCREENING FOR CANCER OF THE PROSTATE (V76.44) [facility] Historical Summary On: 07-Oct-2008 15:11 [facility] End: 07-Oct-2008 15:13 Office Visit On: 04-Oct-2008 10:35 Encounter Diagnosis: Pulmonary embolism (415.19) End: 04-Oct-2008 11:22 [facility] Nurse Visit On: 02-Sep-2008 13:42 Encounter Diagnosis: Pulmonary embolism (415.19) End: 05-Sep-2008 9:05 [facility] Office Visit On: 23-Aug-2008 13:00 Encounter Diagnosis: Pulmonary embolism (415.19) End: 23-Aug-2008 14:37 [facility] Office Visit On: 09-Aug-2008 13:03 Encounter Reason: Follow up for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
--- OUTSIDE RECORDS SUMMARY | 2018-10-11 15:25 | XMS RPT_ITS ---
:1950 Author Organization OHIP Support Name Relationship Address Phone ARGENIS UGALDEA Unavailable Unavailable + [place] [employer] Unavailable [address] + [place] [address] TRAM, AMADO Unavailable Unavailable + [place] [employer] Unavailable [address] + [place] [address] TRAM, AMADO Unavailable UNKNOWN + [facility] [employer] Unavailable [address] + [place] [address] TRAM, AMADO Unavailable Unavailable + [facility] [employer] Un[place] [address] + [place] [address] TRAM, AMADO Unavailable Unavailable + [facility] [employer] Unavailable [address] + [place] [address] TRAM, AMADO Unavailable . + [facility] . [employer] Unavailable [address] + [place] [address] TRAM, AMADO Unavailable Unavailable + [facility] [employer] Un[place] [address] + [place] [address] TRAM, AMADO Unavailable Unavailable + [place] [address] [employer] Unavailable [address] + [place] [address] TRAM, AMADO Unavailable Unavailable + [place] [employer] Unavailable [address] + [place] [address] AMADO UGALDE Unavailable . + [place] [employer] Unavailable [address] + [place] [address] ARGENIS UGALDEA Unavailable . + [place] [employer] Un[place] [address] + [place] [address] Care Team Providers Name Role Phone Fast DO, Radha A Attending Unavailable Fast DO, Radha A Referring Unavailable Fast DO, Radha A Consulting Unavailable KilPavan holguinlis Attending Unavailable Por, Rinku Attending Unavailable Fast, Radha Referring Unavailable Pro, Rinku Attending Unavailable Pro, Benavides Referring Unavailable Fast, Radha Primary Care Unavailable Pro, Benavides Attending Unavailable Pro, Rinku Referring Unavailable Fast, Radha Primary Care Unavailable Pro, Rinku Consulting Unavailable Pro, Rinku Attending Unavailable Fast, Radha Referring Unavailable Pro, Rinku Attending Unavailable Pro, Rinku Referring Unavailable Fast, Radha Primary Care Unavailable Kilner Janine Attending Unavailable Fast, Radha Attending Unavailable Fast, Radha Primary Care Unavailable ASSESSMENT, HEALTH RISK Attending Unavailable Fast, Radha Primary Care Unavailable Fast, Radha Attending Unavailable Fast, Radha Referring Unavailable Fast, Radha Primary Care Unavailable Pro, Benavides Attending Unavailable Fast, Radha Referring Unavailable Fast, Radha Primary Care Unavailable Fast, Radha Consulting Unavailable PROBLEMS PROBLEMS DATE TYPE CONDITION / CODE ATTENDING STATUS SOURCE 08/07/2018 Unknown R93.1 - Abnormal Pro, Rinku Active [place] findings on Community diagnostic imaging [facility] of heart and Repository coronary circulation / R93.1(ICD-10) 08/07/2018 Unknown I10 - Essential Pro, Benavides Active [place] (primary) Community hypertension / Hospital I10(ICD-10) Repository 08/07/2018 Unknown E78.5 - Pro, Benavides Active [place] Hyperlipidemia, Community unspecified / Hospital E78.5(ICD-10) Repository 07/29/2018 Unknown E78.00 - Pure Fast, Radha Active [place] hypercholesterolem Community ia, unspecified / Hospital E78.00(ICD-10) Repository PROCEDURES PROCEDURES No Procedure Records FoundRESULTS RESULTS OFFICE VISIT REPORT Observed: 08/08/2018 Status: F Source: [place] 10:25 AM [facility] REPOSITORY [facility] [place] [address] OFFICE VISIT Date of Service: 08/04/18 MR#: [id number] Acct: [id number] Patient: HENRIQUE ANN Rep #: [id number] : 1950 Provider: Rinku Mast MD Age/Sex: 68/M Location[place] [facility] [place] Status: Signed Intake Vital Signs08/04/18 Body Mass Index (BMI) 27.6 Intake Visit Reasons: cath teach/ekg Chief Complaint: Initial visit Allergies lidocaine Adverse Reaction (Verified 07/08/18 08:39) Unknown procaine Adverse Reaction (Verified 07/08/18 08:39) Unknown Medications Levothyroxine [Synthroid] 100 mcg PO DAILY 09/12/15 [History Confirmed 08/06/18] Metoprolol(XL)Succ [Toprol Xl (Beta Clifton)] 50 mg PO DAILY 09/12/15 [History Confirmed 08/06/18] Polyethylene Glycol 3350 [Miralax] 17 gm PO DAILY 09/12/15 [History Confirmed 08/06/18] amoxicillin 500 mg capsule 2,000 mg PO ONCE cap 07/07/18 [History Confirmed 08/06/18] atorvastatin 20 mg tablet 20 mg PO QHS 07/07/18 [History Confirmed 08/06/18] rivaroxaban 20 mg tablet 20 mg PO QPM tab 07/07/18 [History Confirmed 08/06/18] tadalafil 10 mg tablet 10 mg PO DAILY 07/07/18 [History Confirmed 08/06/18] ascorbic acid (vitamin C) 500 mg tablet 500 mg PO DAILY 07/08/18 [History Confirmed 08/06/18] cholecalciferol (vitamin D3) 2,000 unit capsule 2,000 unit PO DAILY 07/08/18 [History Confirmed 08/06/18] aspirin 81 mg tablet,delayed release 81 mg PO DAILY 08/04/18 [History Confirmed 08/06/18] cetirizine 10 mg capsule 10 mg PO DAILY cap 08/04/18 [History Confirmed 08/06/18] clopidogrel 75 mg tablet 75 mg PO DAILY #30 tab 08/04/18 [Rx Confirmed 08/06/18] Assessment AND Plan Orders Orders: Medications New: Nursing Note Cardiac catheterization teaching completed and instructions reviewed. EKG completed, labs and CXR ordered. Patient instructed to hold xarelto, last dose 08/04/18, start plavix 75 mg daily and aspirin 81mg daily. Rx for plavix sent to patient's pharmacy. 08/08/18 1025 <Electronically signed by Rinku Mast MD> Date Rinku Mast MD Cosigner Signature: Date (if applicable) CC: CHEST PA AND LATERAL Observed: 08/04/2018 Status: F Source: [place] 3:18 PM [facility] REPOSITORY [facility] Imaging Services [address] [place] [address] Chest PA and Lateral MR#: [id number] Acct: [id number] Name: HENRIQUE ANN Rep #: [id number] : 1950 M 68 From: Khang Patel MD PCP: Radha Jolley DO Status: [facility] [place] Study: Chest PA and Lateral Date of Exam: 08/04/18 Exam# [id number] Ordering Dr: Rinku Mast MD STUDY: CT CHEST WITHOUT CONTRAST REASON FOR EXAM: Male, 68 years old. Hypercholesterolemia. Calcium scoring examination over read. RADIATION DOSAGE (If Supplied By Facility): CTDIvol = ( 12.19 ) mGy, DLP = ( 511.97 ) mGycm TECHNIQUE: Transaxial imaging was performed without the administration of intravenous contrast material. Individualized dose optimization techniques were used for this CT. COMPARISON: None. FINDINGS: Focal area of increased markings in the lateral aspect of the left lower lobe with focal calcification. This most likely represents fibrocalcific scarring. There is no demonstrated pleural abnormality. There are calcifications of the coronary arteries. There are multiple small lymph nodes within the mediastinum, which are normal in size and morphology most compatible with reactive lymph hyperplasia. Calcified subcarinal and right hilar lymph nodes. Normal unenhanced pulmonary arteries. Normal aorta arch and descending thoracic aorta. Normal osseous structures. Moderate sized hiatal hernia. A filter is seen within the inferior vena cava. Cholelithiasis. Hyperplasia of the adrenal glands. RAD/Chest PA and Lateral IMPRESSION: Coronary artery calcification. Findings suggestive of scarring in the lateral aspect of the left lower lobe. Electronically Signed: Khang Patel MD at 9:50 EST Tel [phone], Service support , CC: Rinku Mast MD; Radha Jolley DO Primary Care Provider: Signed 12 LEAD EKG PERFORMED Observed: 08/04/2018 Status: F Source: [place] BY [facility] 1:28 PM [facility] REPOSITORY [address] [address] 12 Lead EKG performed by [facility] 08/04/18 1231 MR#: [id number] Acct: [id number] Name: HENRIQUE ANN Rep #: [id number] : 1950 68 From: Rinku Mast MD Attending Dr: Rinku Mast MD Status: DEP AMB Ordering Dr: Rinku Mast MD Date: 08/04/18 Location: [facility] Sex: M C Admitted: BMS/12 Lead EKG performed by [facility] ECG Report Interpretation Sinus Rhythm WITHIN NORMAL LIMITSElectronically signed on 08/11/2018 at 15:37 by Rinku Mast [employer] Version [id number] 08/11/18 1545 Date Rinku Mast MD CC: Radha Jolley DO Date Dictated: 08/04/181230 Date Transcribed: 08/04/181230 Primary Care Provider: CO Signed CBC W/DIFF, AUTOMATED Collected: 08/04/2018 Status: F Source: [place] 10:30 AM [facility] REPOSITORY TYPE CODE TESTS RESULT OUT OF RANGE REFERENCE UNITS LAB L100.1000 4.4-11.0 K/mm3 Normal WBC 8.8 LAB L100.1200 4.6-6.2 M/mm3 Normal RBC 4.87 LAB L100.1300 13.0-16.5 g/dl Normal HGB 14.7 LAB L100.1400 40-54 % Normal HCT 44.1 LAB L100.1500 80-94 fL Normal MCV 90.6 LAB L100.1600 27.0-32.0 pg Normal MCH 30.2 LAB L100.1700 32-36 g/gl Normal MCHC 33.3 LAB L100.1810 11.6-14.6 % Normal RDW CV 12.9 LAB L100.1820 35.1-43.9 fl Normal RDW SD 42.3 LAB L100.1900 150-450 K/mm3 Normal PLT 247 LAB L100.2000 6.2-12.0 fl Normal MPV 10.5 LAB L100.2100 47-70 % High NEUT% 71.1 LAB L100.2200 19-41 % Normal LY% 19.8 LAB L100.2300 0-10 % Normal MONO% 7.7 LAB L100.2400 0-5 % Normal EO% 0.7 LAB L100.2500 0-1 % Normal BASO% 0.2 LAB L100.2550 0.0-0.9 % Normal IM GRAN % 0.500 Result Comment: IG% - Immature Granulocytes (promyelocytes, myelocytes and metamyelocytes) > 1% indicates that a LEFT SHIFT is Present. LAB L100.2620 2.0-7.7 X10 3/uL Normal Absolute Neut 6.2 LAB L100.2720 0.83-4.51 X10 3/ul Normal Absolute Lymph 1.73 Performed By: #### L100.0100 #### [facility] [address] [place], [address] BASIC METABOLIC Collected: 08/04/2018 Status: F Source: [place] PROFILE (BMP) 10:30 AM [facility] REPOSITORY TYPE CODE TESTS RESULT OUT OF RANGE REFERENCE UNITS LAB L501.0100 74-106 mg/dL Normal GLU 87 Result Comment: Please note revised GLUCOSE reference range effective 2017. LAB L501.1000 7-18 mg/dL Normal BUN 16 LAB L501.1100 0.70-1.30 mg/dL Normal CREAT,SERUM 0.75 Result Comment: The validity of the calculated GFR AND GFRAA in patients over 70 years has not been determined. Clinical correlation is essential. LAB L501.1110 >60 mL/min Normal EST GFR 109 Result Comment: Non- GFR Calc LAB L501.1115 >60 mL/min Normal EST GFR - AA 132 Result Comment: GFR Calc LAB L501.1300 10-20 RATIO High BUN/CRE 21.3 LAB L501.2200 8.5-10.1 mg/dL CA Normal 9.0 LAB L501.5300 136-145 mmol/L NA Normal 138 LAB L501.5600 3.5-5.1 mmol/L K Normal 4.2 LAB L501.5900 98-107 mmol/L CL Normal 104 LAB L501.6100 21.0-32.0 mmol/L Normal CO2 25.0 LAB L501.6200 5-15 Normal GAP 9 Performed By: #### L500.2500 #### [facility] [address] [place], [address] PROTHROMBIN TIME W/INR Collected: 08/04/2018 Status: F Source: [place] 10:30 AM [facility] REPOSITORY TYPE CODE TESTS RESULT OUT OF RANGE REFERENCE UNITS LAB L300.4150 11.7-14.9 SECONDS Normal PROTIME 14.9 LAB L300.4200 Normal INR 1.2 Performed By: #### L300.3900, L300.4310 #### [facility] [address] [place], [address] PARTIAL THROMBOPLAST Collected: 08/04/2018 Status: F Source: [place] TIME 10:30 AM [facility] REPOSITORY TYPE CODE TESTS RESULT OUT OF RANGE REFERENCE UNITS LAB L300.4310 24.1-36.2 Seconds Normal PTT 29.2 Performed By: #### L300.3900, L300.4310 #### [facility] [address] [place], [address] ECHOCARDIOGRAM COMPLETE Observed: 07/30/2018 Status: F Source: [place] 7:10 AM [facility] REPOSITORY [facility] Cardiovascular Services [address] [place] [address] Echo Complete 07/29/18 0906 MR#: [id number] Acct: [id number] Name: HENRIQUE ANN Rep #: [id number] : 1950 68 From: Rinku Mast MD Attending Dr: Rinku Mast MD Status: REG CLI Ordering Dr: Rinku Mast MD Date: 07/29/18 Location: [facility] Sex: M C Admitted: Reason For Study: CAD Procedure This was a 2D Doppler, Color Flow transthoracic echocardiogram. Exam performed in department. Left Ventricle Normal LV size. Left ventricular systolic function is normal. The estimated ejection fraction is 60 %. Stage 1 diastolic dysfunction. No regional wall motion abnormalities noted. Right Ventricle Normal RV size. Normal systolic function. Atria Normal left atrium. Normal right atrium. Mitral Valve Normal mitral valve. Tricuspid Valve Normal tricuspid valve. Mild tricuspid valve insufficiency. Pulmonary artery systolic pressure is 27 mmHg. Aortic Valve Normal aortic valve. Trisinus/trileaflet aortic valve. Pulmonic Valve Normal pulmonic valve. Great Vessels Normal aortic root. The pulmonary artery is normal size. Normal inferior vena cava. Pericardium/Pleural No pericardial effusion. MMode/2D Measurements AND Calculations LVIDd: 4.5 cm IVSd: 1.1 cm LVOT diam: 2.4 cm LVIDs: 2.9 cm LVPWd: 1.1 cm LVOT area: 4.6 cm2 RVDd: 3.9 cm FS: 36.2 % Ao root diam: 3.8 cm LAV(MOD-bp): 57.8 ml EDV(MOD-sp4): 105.5 ml LAV(MOD-bp) Indexed: 27.0 ml/m2 ESV(MOD-sp4): 46.1 ml LAV(MOD-sp2): 39.9 ml EF(MOD-sp4): 56.3 % LAV(MOD-sp4): 74.6 ml EDV(MOD-sp2): 92.3 ml SV(MOD-sp4): 59.4 ml SV(MOD-sp2): 46.2 ml EF(MOD-sp2): 50.1 % LA A4 area: 23.2 cm2 LA dimension(2D): 4.3 cm RA A4 area: 19.6 cm2 Doppler Measurements AND Calculations MV E max yg: 64.7 cm/sec Lat Peak E' Yg: 7.6 cm/sec Med Peak E' Yg: 5.6 cm/sec MV A max yg: 97.0 cm/sec E/E' lat: 8.6 E/E' med: 11.6 MV E/A: 0.67 Ao V2 max: 152.5 cm/sec LV V1 max: 113.4 cm/sec PA V2 max: 121.2 cm/sec Ao max P.3 mmHg LV V1 max P.1 mmHg MEHNAZ(V,D): 3.4 cm2 TR max yg: 242.5 cm/sec TR max P.5 mmHg Interpretation Summary Normal LV size. Left ventricular systolic function is normal. The estimated ejection fraction is 60 %. Stage 1 diastolic dysfunction. Mild tricuspid valve insufficiency. Ordering Physician: Rinku aMst Referring Physician: Radha Jolley D.O. Performed By: Funmilayo Farfan, IBETH 07/30/18708 Date Rinku Mast MD CC: Rinku Mast MD; Radha Jolley DO Date Dictated: 07/29/18905 Date Transcribed: 07/30/18709 Primary Care Provider: Signed STRESS REPORT Observed: 07/29/2018 Status: F Source: [place] 9:20 AM [facility] REPOSITORY [facility] Cardiovascular Services [address] [place], [place] [address] [address] MR#: [id number] Acct: [id number] Name: HENRIQUE ANN Rep #: [id number] : 1950 68 From: Rinku Mast MD Primary Care: Radha Jolley DO Status: REG CLI Ordering Dr: Brendan: Ramsey Linton Stress Test Report Exercise myocardial perfusion stress test. 68-year-old man with a history of hypertension and previous pulmonary embolism. Medications: Lipitor, Toprol, amoxicillin, rivaroxaban. Stress protocol: Resting EKG demonstrates normal sinus rhythm with a rate of 70 bpm T wave inversions noted in lead III. Resting blood pressure 150/80 mmHg. The patient exercised according to regular [facility] protocol for a total duration of 6 minutes. The maximum heart rate attained was 153 bpm which was 102% of the maximum predicted heart rate the maximum workload was 7 metabolic equivalents. At rest there were T wave inversions noted in lead III. At peak exercise upsloping ST changes only were noted with normally the criteria for ischemia. The resting blood pressure was 146/68 peak blood pressure 158/62 rate pressure product was 22,700. No clinical angina was noted the patient was short of breath the test was terminated due to the same. Myocardial perfusion protocol. 14.1 mCi of technetium 99m sestamibi was injected at rest. The patient exercised according to regular [facility] protocol for 6 minutes at peak exercise 44.7 mCi of technetium 99m sestamibi was injected stress images were obtained stress and rest images were reconstructed and compared in the short axis vertical long horizontal long axis. Gated images were also obtained next Perfusion SPECT analysis: Review of the stress images demonstrate normal uptake of tracer noted in all areas of the myocardium. The resting images similarly demonstrate normal uptake of tracer noted in all areas of the myocardium. No areas of reversibility are noted suggest ischemia no previous infarct is noted. Gated SPECT analysis: The gated ejection fraction is noted to be 64%. Conclusion: Normal exercise myocardial perfusion stress test at a moderate workload. Preserved ejection fraction. 07/29/18 0920 <Electronically signed by Rinku Mast MD> Date Rinku Mast MD CC: Rinku Mast MD; Radha Fast DO Date Dictated: 07/29/18916 Date Transcribed: 07/29/18916 Primary Care Provider: CO Signed CARDIOLOGY VISIT Observed: 07/28/2018 Status: F Source: [place] REPORT 7:01 AM [facility] REPOSITORY [facility] [address] [place] [address] OFFICE VISIT Date of Service: 07/08/18 MR#: [id number] Acct: [id number] Name: HENRIQUE ANN Rep #: [id number] : 1950 Provider: Rinku Mast MD Age/Sex: 68/M Location: [facility] Status: Signed HPI HPI Chief Complaint: Initial visit Details: HENRIQUE ANN, is a 68 M who presents to the office today for an initial office visit. He is a active gentleman with a history of benign essential hypertension, pulmonary embolism, hyperlipidemia who as part of a routine evaluation and underwent coronary calcium score evaluation. He denies any chest pain or shortness breath or paroxysmal nocturnal dyspnea pedal edema he has had no neck arm or jaw discomfort suggest angina. He remains fairly active. He underwent a coronary calcium score which demonstrated a calcium score of over 90%. There was significant calcification noted in the right coronary artery and mild to moderate noted in the left anterior descending artery and left main coronary artery. He has had no other symptoms other than previous episode of pulmonary embolism. His electrocardiogram done demonstrated normal sinus rhythm with a rate of 66 bpm and no acute changes. His physical exam today demonstrates clear lung mensah regular rate and rhythm and no pedal edema. Intake Vital Signs07/08/18 Height 6 ft Intake Visit Reasons: PCP ref'd for abn calcium score Allergies lidocaine Adverse Reaction (Verified 07/08/18 08:39) Unknown procaine Adverse Reaction (Verified 07/08/18 08:39) Unknown Medications Levothyroxine [Synthroid] 100 mcg PO DAILY 09/12/15 [History Confirmed 07/08/18] Metoprolol(XL)Succ [Toprol Xl (Beta Clifton)] 50 mg PO DAILY 09/12/15 [History Confirmed 07/08/18] Polyethylene Glycol 3350 [Miralax] 17 gm PO DAILY 09/12/15 [History Confirmed 07/08/18] amoxicillin 500 mg capsule 2,000 mg PO ONCE PRN cap 07/07/18 [History Confirmed 07/08/18] atorvastatin 20 mg tablet 20 mg PO QHS 07/07/18 [History Confirmed 07/08/18] rivaroxaban 20 mg tablet 20 mg PO QPM tab 07/07/18 [History Confirmed 07/08/18] tadalafil 10 mg tablet 10 mg PO DAILY PRN 07/07/18 [History Confirmed 07/08/18] ascorbic acid (vitamin C) 500 mg tablet 500 mg PO DAILY 07/08/18 [History Confirmed 07/08/18] cholecalciferol (vitamin D3) 2,000 unit capsule 2,000 unit PO DAILY 07/08/18 [History Confirmed 07/08/18] [facility] Medical History Hyperlipidemia (Chronic) Essential (primary) hypertension (Chronic) 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) Colon polyp (Chronic) DVT (deep venous thrombosis) (Chronic) Dysthymic (Chronic) Erectile dysfunction (Chronic) Hypothyroidism (Chronic) Pulmonary embolism (Chronic) Vitamin D deficiency (Chronic) Surgical History History of hip surgery (Resolved) History of myringotomy (Resolved) History of tonsillectomy (Resolved) Presence of inferior vena cava filter (Resolved) Family History Father Myocardial infarction age 40 from [place] Mother Heart disease CHF Social History Smoking Status: Never smoker ROS Const Const: Positive for other (Exercises 3-4 times a week w/o difficulty); negative for fatigue, weakness, difficulty sleeping, frequent falls, excessive sweating or headache(s) Eyes Eyes: Negative for loss of peripheral vision, transient loss of vision, blurry vision, tunnel vision or double vision ENT ENT: Negative for headache(s), dizziness, Nosebleed/epistaxis or balance problems Cardio Chest Pain: No Palpitations: No Edema: None Muscle aches with walking: None Resp Respiratory: Negative for SOB with activity, SOB at rest, SOB orthopnea\SOB lying down, paroxysmal nocturnal dyspnea or Cough GI GI: Negative nausea, heartburn, black,tarry stools or vomiting : Negative for hematuria Musc Musc: Negative for balance problems, muscle aches/ myalgia, muscle weakness or joint pain Skin Skin: Negative non-healing lesions, unusual bruising or rash Neuro Neuro: Negative for weakness, frequent falls, headache(s), blurry vision, double vision, dizziness, lightheadedness, orthostatic symptoms (One episode on Friday after napping then voided and legs were weak), near syncope, syncope or lack of coordination Cont[place]ras Hematologic/Lymphatic: Negative for easy bruising or easy bleeding Endo Endo: Negative for fatigue, excessive sweating or increased thirst/drinking Psych Psych: Negative for anxiety or depression Allergy Allergy/Immunology: Negative for hives, Negative for rash Cardiology Exam Const Appearance: cooperative, healthy appearing, well developed, well groomed and no acute distress Nutritional Appearance: well nourished and average body habitus Orientation: alert, awake and oriented x3 Head Head: normal to inspection, normocephalic and atraumatic Ears: hearing grossly normal bilaterally and external ears normal Nose: external nose normal, nasal mucous membranes and turbinates normal, nares normal, septum normal, no nasal discharge Face and Sinus: face symmetric Mouth: oral mucosae normal, tongue normal, oropharynx normal and moist mucous membranes Teeth and gingiva: dentition normal Throat: posterior oropharynx normal, tonsils normal and uvula midline Eyes General: appearance normal, both eyes and all related structures Eyelids: eyelids normal Conjunctivae: conjunctivae normal Pupils: PERRL, normal by confrontation and accommodation normal EOM: EOM intact bilaterally Neck Neck: normal visual inspection, trachea midline and no JVD JVD: +5 Carotids: normal carotid upstroke and bounding pulses Chest Chest inspection: normal inspection of the chest, symmetric chest movement and normal respiratory effort Auscultation: Bilateral: Clear to Auscultation Cardio Palpation: normal PMI Rate: regular rate Rhythm: regular rhythm Heart sounds: S1 normal, S2 normal and normal, physiologic split S2; negative rub, gallop or murmur GI GI: normal to inspection, soft, no hepatosplenomegaly and bowel sounds present Neuro General: alert, awake, oriented x3, no focal sensory deficit, gait normal and moves all extremities Skin Skin: no rashes or lesions noted Extremities Pulses: Normal: Right Femoral Pulse, Left Femoral Pulse, Right Dorsalis Pedis Pulse, Left Dorsalis Pedis Pulse, Right Posterior Tibial Pulse, Left Posterior Tibial Pulse, Right Radial Pulse, Left Radial Pulse Lower Extremity Edema: None: Bilateral Musculoskel Musculoskeletal: No joint tenderness Psych Psychological: normal affect Assessment AND Plan 1. Abnormal screening CT of heart R93.1 Plan He has a markedly abnormal coronary calcium score. He is without any symptomatology whatsoever. At this time I would suggest that we proceed with an exercise myocardial perfusion stress test to assess for any ischemia and depending on those results further recommendations will be made. I did suggest to him however that I would have a low threshold for performing a cardiac catheterization. Orders Orders: 2. Essential (primary) hypertension I10 Plan His blood pressure is under good control on the current medical therapy no changes will be made an echocardiogram should be performed to assess his left ventricular function. Orders Orders: 3. Hyperlipidemia E78.5 Plan His lipid status was evaluated through your office. He is on high intensity statin which will be continued. His most recent lipid profile demonstrated total cholesterol 155, LDL of 96 and HDL of 46. Thank you for allowing me to participate in the care of your patient. 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) Coding Level of Care Code Off vis,new,level [address] of heart R93.1 Essential (primary) hypertension I10 Hyperlipidemia E78.5 Coding Level of Care Code Off vis,new,level [address] of heart R93.1 Essential (primary) hypertension I10 Hyperlipidemia E78.5 Supplemental Info Supplemental Information Diagnostics Coronary Angiography CT 06/25/18 07/28/18 0701 <Electronically signed by Rinku Mast MD> Date Rinku Mast MD Cosigner Signature: Date (if applicable) CC: Radha Jolley DO LIMITED CHEST CT Observed: 06/24/2018 Status: F Source: ANH W/CCTA 12:40 PM [facility] REPOSITORY [facility] Imaging Services [address] [place] [address] w/CCTA MR#: [id number] Acct: [id number] Name: HENRIQUE ANN Rep #: [id number] : 1950 M 68 From: Khang Patel MD PCP: Radha Jolley DO Status: REG CLI Study: Limited Chest CT w/CCTA Date of Exam: 06/24/18 Exam# [id number] Ordering Dr: Radha Jolley DO STUDY: CT CHEST WITHOUT CONTRAST REASON FOR EXAM: Male, 68 years old. Hypercholesterolemia. Calcium scoring examination over read. RADIATION DOSAGE (If Supplied By Facility): CTDIvol = ( 12.19 ) mGy, DLP = ( 511.97 ) mGycm TECHNIQUE: Transaxial imaging was performed without the administration of intravenous contrast material. Individualized dose optimization techniques were used for this CT. COMPARISON: None. FINDINGS: Focal area of increased markings in the lateral aspect of the left lower lobe with focal calcification. This most likely represents fibrocalcific scarring. There is no demonstrated pleural abnormality. There are calcifications of the coronary arteries. There are multiple small lymph nodes within the mediastinum, which are normal in size and morphology most compatible with reactive lymph hyperplasia. Calcified subcarinal and right hilar lymph nodes. Normal unenhanced pulmonary arteries. Normal aorta arch and descending thoracic aorta. Normal osseous structures. Moderate sized hiatal hernia. A filter is seen within the inferior vena cava. Cholelithiasis. Hyperplasia of the adrenal glands. CT/Limited Chest CT w/CCTA IMPRESSION: Coronary artery calcification. Findings suggestive of scarring in the lateral aspect of the left lower lobe. Electronically Signed: Khang Patel MD at 9:50 EST Tel [phone], Service support , CC: Radha Jolley DO Primary Care Provider: Signed ALLERGIES ALLERGIES DATE TYPE / CODE NAME / CODE REACTION SEVERITY SOURCE 07/08/2018 Drug lidocaine/F00 Unknown Unknown [place] [facility] Allergy/4160 9079471([facility] [address]28(SNOMED M) Repository CT) 07/08/2018 Drug procaine/F006 Unknown Unknown [place] [facility] Allergy/4160 757983([facility] [address]37(SNOMED ) Repository CT) 09/12/2015 Drug No Known Unknown [facility] Allergy/4160 Allergies/F00 Hospital 81585(SNOMED 4964038([facility]NOR Repository CT) M) ENCOUNTERS ENCOUNTERS ADMIT/DISCHARGE ACCOUNT ADMITTING ENCOUNTER LOCATION SOURCE NUMBER CLASS 08/07/2018 [id number] Ambulatory BMSBuilding:B [place] 9 [facility] Repository 08/07/2018/ [id number] Ambulatory Anh [place] 9 4 [facility] ing:[facility] Repository 08/04/2018/ [id number] Ambulatory BMSBuilding:B [place] 9 1 [facility] Repository 07/29/2018 [id number] Ambulatory BMSBuilding:B An[facility] 2 [facility] Repository 07/29/2018 [id number] Ambulatory An[place] 8 [facility] ing:[facility] Repository 07/08/2018/ [id number] Ambulatory BMSBuilding:B Anh 8 7 [facility] Repository 07/07/2018 [id number] Ambulatory BMSBuilding:B [facility] 2 [facility] Repository 06/29/2018 1224 Ambulatory Building:[facility] Practices Repository 06/25/2018 [id number] Ambulatory BMSBuilding:B Anh 2 [facility] Repository 06/24/2018 [id number] Ambulatory [place] [facility] 3 [facility] ing:CT Repository 05/05/2018 [id number] Ambulatory Anh [place] 8 [facility] ing: Repository 11/07/2017 [id number] [place] [facility] ing:[facility] Repository PAYERS PAYERS ENCOUNTER GUARANTOR PAYER SUBSCRIBER SOURCE 08/07/2018 HENRIQUE W Primary HENRIQUE W Anh [id number] DANBERRY Insurance:ANTHEMPolic RAABDOB: [facility] bouchra [place] y Number: [id number] Hospital 30159Qje: (330) [id number] Repository [phone] (HP) Date:0086-96-26QK [address] [address]HO: 08/07/2018 Secondary NOT GIVENUNK Anh Insurance:SELF PAY [facility] Number: Effective Repository Date:2018-08-07 08/07/2018 HENRIQUE W Primary HENRIQUE W Anh [id number] [place]AN[place] Insurance:ANTHEMPolic RAABDOB: [facility] bouchra [place] y Number: [id number] Hospital [id number]: (330) [id number] Repository [phone] () Date:[id number] [address], [place] [address]SQ: 08/07/2018 Secondary NOT GIVENUNK Anh Insurance:SELF PAY [facility] Number: Effective Repository Date:2018-08-04 08/04/2018 HENRIQUE W Primary HENRIQUE W Anh [id number] DANBERRY Insurance:ANTHEMPolic RAABDOB: [facility] bouchra [place] y Number: [id number] Hospital [id number]: (330) [id number] Repository [phone] () Date:9556-32-73NB [address], [place] [address]MQ: 08/04/2018 Secondary NOT GIVENUNK Anh Insurance:SELF PAY [facility] Number: Effective Repository Date:2018-08-04 07/29/2018 HENRIQUE W Primary HENRIQUE W [place] [id number] DANBERRY Insurance:ANTHEMPolic RAABDOB: [facility] bouchra [place] y Number: [id number] Hospital 085[address]Csw: (330) [id number] Repository [phone] () Date:9988-52-89SY [address], [place] [address]NQ: 07/29/2018 Secondary NOT GIVENUNK Anh Insurance:SELF PAY [facility] Number: Effective Repository Date:2018-07-29 07/29/2018 HENRIQUE W Primary HENRIQUE W [place] [id number] DANBERRY Insurance:ANTHEMPolic RAABDOB: [facility] [place] Number: [id number] Hospital 568[address]Quk: (330 [id number] Repository [phone] () Date:4698-37-84NP [address] [place] [address]HU: 07/29/2018 Secondary NOT GIVENUNK [place] Insurance:SELF PAY [facility] Number: Effective Repository Date:2018-07-08 07/08/2018 HENRIQUE W Primary HENRIQUE W Anh [id number] DANBERRY Insurance:ANTHEMPolic RAABDOB: [facility] [place] Number: [id number] Hospital 977[address]Qje: (330) [id number] Repository [phone] () Date:0565-33-50DY [address] [place] [address]LN: 07/08/2018 Secondary NOT GIVENUNK Anh Insurance:SELF PAY [facility] Number: Effective Repository Date:2018-07-08 07/07/2018 HENRIQUE W Primary HENRIQUE W Anh [id number] DANBERRY Insurance:ANTHEMPolic RAABDOB: [facility] [place] y Number: [id number] Hospital 445[address]Wbb: (330) [id number] Repository [phone] () Date:3307-49-59HT [address] [address]VU: 07/07/2018 Secondary NOT GIVENUNK Anh Insurance:SELF PAY [facility] Number: Effective Repository Date:2018-07-07 06/29/2018 HENRIQUE Primary HENRIQUE W OHIP Practices RAABDOB: Insurance:[place] RAABDOB: Repository [id number] /[facility] Number: [id number] [place] [id number] [place], [place] Date:4471-20-83Zjca [place] [address] Name:[address] [address]Vce: [phone] [address]P[place]kkq[place], [place] [phone]: [phone] (HP) [phone] (WP) 06/29/2018 Secondary HENRIQUE W [place]IP Practices Insurance:Medical RAABDOB: Repository [facility] [id number] Number: Dantoña [id number] [place], [place] Date:2004-07-21 30989Seb: [id number] ~(3 Name:[facility] [address] (HP)Tel: [address], [place] [phone]: [phone] ([phone] 06/25/2018 HENRIQUE W Primary Insurance:[facility] [place] [id number] DANBERRY PACKAGE PLANPolicy RAABDOB: [place] Number: Effective [id number] Hospital [address]84[address]Byu: (459) Date:2018-06-25 Repository [phone] () 06/25/2018 Secondary NOT GIVENUNK Anh Insurance:SELF PAY [facility] Number: Effective Repository Date:2018-06-25 06/24/2018 HENRIQUE W Primary [facility] [place] [id number] DANBERRY PACKAGE PLANPolicy RAABDOB: [place] Number: [id number] Hospital 18[address]Vjf: ([phone]) [id number] Repository [phone] (HP) Date:2018-06-08 06/24/2018 Secondary NOT GIVENUNK Anh Insurance:SELF PAY [facility] Number: Effective Repository Date:2018-06-08 05/05/2018 Henrique W Primary NOT GIVENUNK [place] [id number] [place] Insurance:SELF PAY [facility] [address]Jqz: (226) Number: Effective Repository [phone] () Date:2018-04-28 11/07/2017 Henrique Le Primary NOT GIVENUNK Anh [id number] [place] Insurance:SELF PAY Community [place] [facility] [address]Dst: (330) Number: [facility] Repository [phone] () Date:2017-09-29
== END 2018-08-07 12:15 | disposition home or self-care (01) ==
LOC: CLSP 08:27
PROVIDERS: Family Provider Internal Medicine; PCP Internal Medicine; Referring Provider Internal Medicine Cardiovascular Disease; Visit Provider Internal Medicine Cardiovascular Disease
DX: R93.1 Abnormal findings on diagnostic imaging of heart and coronary circulation (principal); I10 Essential (primary) hypertension; E78.5 Hyperlipidemia, unspecified; E03.9 Hypothyroidism, unspecified; N40.1 Benign prostatic hyperplasia with lower urinary tract symptoms; N13.8 Other obstructive and reflux uropathy; E55.9 Vitamin D deficiency, unspecified; Z79.01 Long term (current) use of anticoagulants; Z79.02 Long term (current) use of antithrombotics/antiplatelets; Z79.82 Long term (current) use of aspirin; Z79.899 Other long term (current) drug therapy; Z86.718 Personal history of other venous thrombosis and embolism; Z86.711 Personal history of pulmonary embolism; Z86.010 Personal history of colon polyps
CPT/HCPCS: 71046; 80048; 85025; 85610; 85730; 93458; 99152; 99153; J7040; Q9967; C1769; C1894

== ENCOUNTER 2019-06-06 19:07 | Emergency (ER) | payer BC, SELFPAY ==
[2018-08-06 08:11] VITALS: BMI 27.6
[2019-06-06 19:07] VITALS: BP 145/72; PULSE 71; RESP 18; TEMP 37.2; O2SAT 98; BMI 25.9
[2019-06-06 21:07] VITALS: PULSE 71; RESP 16; O2SAT 97
--- NOTE | 2019-06-06 21:21 | EKG12_ITS ---
Test Reason : GEN ILL Blood Pressure : / mmHG Vent. Rate : 062 BPM Atrial Rate : 062 BPM P-R Int : 198 ms QRS Dur : 086 ms QT Int : 392 ms P-R-T Axes : 069 038 001 degrees QTc Int : 397 ms Normal sinus rhythm Normal ECG Confirmed by SYLWIA HUSSEIN MD ([id number]), editor news ALESHIA HARTLEY ([id number]) on 06/08/2019 11:46:38 AM Referred By: HAO Confirmed By:SYLWIA HUSSEIN MD
--- NOTE | 2019-06-06 21:38 | ED.DCSUM_ITS ---
History of Present Illness Chief Complaint: General Illness Informant: Patient Onset: Days Context: Gradual Onset Timing: Waxes and wanes Narrative: Patient is a 69-year-old male with history of hypertension, coronary artery disease and hyperlipidemia presenting with not feeling right. Patient states 3 days ago he was walking and he had about 15 seconds with his legs felt a little weak. It was both equally. He did not fall. He states since then he is felt off. He has had a hard time describing it further. He denies any associated chest pain, fever, chills, shortness of breath, nausea, vomiting, change in carola wel habits or change in urination. He denies any skin changes or fever. He has appointment to see his primary care doctor this coming week. Patient states he is planning on calling his PCP tomorrow morning to be seen for this but was worried since he lives home alone and something might happen overnight so he decided to come to the emergency room. Patient states he had routine blood work done last week in anticipation for his physical this coming week. Past Medical History - Allergies and Home Meds Allergies/Adverse Reactions: Allergies lidocaine Adverse Reaction (Verified 06/06/19 19:09) Unknown procaine Adverse Reaction (Verified 06/06/19 19:09) Unknown Primary Care Physician: Radha Jolley DO [Primary Care Provider] - Past Medical History: - - Hypertension, hyperlipidemia, coronary artery disease Surgical History: - - Cardiac catheterization Lives: Alone Smoking Status: Never smoker Review of Systems General: Reports: - - Fatigue, feeling off. Denies: Chills, Fever, Sweats Eyes: Denies: Visual changes - bilaterally, Diplopia ENT: Denies: Rhinorrhea, Sore throat Cardiovascular: Denies: Chest pain, Palpitations Respiratory: Denies: Dyspnea, Cough, Dyspnea on exertion Gastrointestinal: Denies: Abdominal pain, Nausea, Vomiting, Diarrhea, Melena, Hematochezia Genitourinary: Denies: Dysuria, Hematuria, Frequency Musculoskeletal: Reports: Myalgias - chronic . Denies: Back pain, Extremity Pain Skin: Denies: Rash, Wounds Neurological: Reports: Weakness - legs. Denies: Headache, Numbness Physical Exam Vital Signs/Narrative: Vital Signs Temp Pulse Resp BP Pulse Ox 06/06/19 19:07 98.9 F 71 18 145/72 H 98 Inital Vital Signs reviewed: Yes General: Well nourished, Well developed, No Acute Distress Head: Normocephalic, Atraumatic Eyes: Perrl, EOMI ENT: Moist mucous membranes, No rhinorrhea Neck: Supple, Nontender Cardiovascular: Regular rate, Regular rhythm, No murmurs Respiratory: No distress, CTA bilaterally, Chest nontender Abdomen: Soft, Nontender, Nondistended, Normal bowel sounds Back: Nontender, Normal Inspection Extremities: Nontender, No edema Skin: Normal color, No rash Neurological: Alert, Oriented x3, Cranial nerves II-XII grossly intact, Normal Strength, Normal Sensation Psychological: Normal affect, Normal Mood Diagnostic/Tx/Re-eval - Rhythm Strip Rhythm Strip: Sinus Rhythm Rate: 62 Ectopy: None - EKG Initial EKG Interpretation: Sinus Rhythm, - - Sinus rhythm at a rate of 62 Normal intervals Normal axis Nonspecific T wave inversion in lead III No change clear to prior EKG on 09/12/2015 - Medical Decision Making Patient is evaluated for vague sensation of not feeling right. Is concerned it could be something seriously wrong with him such as he has a cardiac history and he lives home alone. Patient's vital signs are significant only for mild hypertension. He is well-appearing and has a benign physical exam. He has no focal neurologic deficits. He does not have any weakness of his legs as appreciated on exam. EKG does not show any acute process and no change compared to prior one. Patient is offered further blood work and urine but states he is comfortable waiting to see his primary care doctor tomorrow and declines. I feel this is reasonable as patient has very vague and minimal complaints at this time and has close follow-up. He did have routine blood work drawn a week ago which he was told was normal by his doctor. Patient is counseled that should he change his mind and be happy to investigate this weakness more thoroughly with blood work and urine. He is counseled on signs symptoms requiring return to emergency room. He verbalizes agreement understand this plan. He is discharged home in stable condition. ED Disposition - Plan for ED Patient: Disposition: Home or Assisted Living Diagnosis: Malaise and fatigue Instructions: WEAKNESS, Unk Cause Referrals: Fast,Radha, DO [Primary Care Provider] - Additional Instructions: Your EKG looked normal today. He had a reassuring physical exam and your vital signs are grossly normal. At this time I cannot find a reason for the weakness. I think it reasonable that she follow-up with your primary care doctor tomorrow. Should you change your mind and want further evaluation before that including blood work or urine testing you may return the emergency room.
[2019-06-06 22:02] VITALS: PULSE 71; RESP 16; O2SAT 97
== END 2019-06-06 22:02 | disposition home or self-care (01) ==
PROVIDERS: Emergency Provider Emergency Medicine; Family Provider Internal Medicine; PCP Internal Medicine
DX: R53.81 Other malaise (principal); R53.83 Other fatigue; I25.10 Atherosclerotic heart disease of native coronary artery without angina pectoris; I10 Essential (primary) hypertension; E78.5 Hyperlipidemia, unspecified; Z79.01 Long term (current) use of anticoagulants; Z79.02 Long term (current) use of antithrombotics/antiplatelets; Z79.82 Long term (current) use of aspirin; Z79.899 Other long term (current) drug therapy
CPT/HCPCS: 93005; 99282

== ENCOUNTER 2020-09-21 17:08 | Outpatient (RCR) | payer BC, SELFPAY ==
[2020-09-12 15:42] VITALS: BMI 26.8
[2020-09-21] MEDS: COVID-19 VACC, MRNA(PFIZER)/PF 30 MCG/0.3 ML SYRINGE IM (10:30)
[2020-10-12] MEDS: COVID-19 VACC, MRNA(PFIZER)/PF 30 MCG/0.3 ML SYRINGE IM (10:29)
== END 2020-09-21 23:59 ==
LOC: IMMUN 17:08
PROVIDERS: PCP Internal Medicine; Visit Provider Family Medicine
DX: Z23 Encounter for immunization (principal)
CPT/HCPCS: 0001A; 0002A

== ENCOUNTER 2021-11-26 15:36 | Emergency (ER) | payer BC, SELFPAY ==
[2021-11-26 15:38] VITALS: BP 122/66; PULSE 68; RESP 16; TEMP 36.4; O2SAT 96; BMI 27.4
--- NOTE | 2021-11-26 15:49 | CT_ITS ---
STUDY: CT PELVIS WITHOUT CONTRAST REASON FOR EXAM: Male, 71 years old. hip pain, recent hernia repair RADIATION DOSAGE (If Supplied By Facility): CTDIvol = ( 28.21 ) mGy, DLP = ( 966.92 ) mGycm TECHNIQUE: Transaxial imaging of the pelvis was performed without oral contrast, and without intravenous administration of contrast material. Individualized dose optimization techniques were used for this CT. COMPARISON: None. FINDINGS: Normal urinary bladder. Operative changes of the right inguinal region compatible with recent hernia repair. Normal visualized small intestine. There are multiple colonic diverticula of the sigmoid colon consistent with chronic diverticulosis. There is no pelvic fluid. There is no pelvic mass lesion or lymphadenopathy. There is diffuse atherosclerotic calcification of the pelvic arteries. Normal abdominal wall. Bilateral L5 spondylolysis with grade 2 spondylolisthesis L5-S1. Degenerative changes of the lower lumbar spine. 1 cm sclerotic lesion of the right iliac crest without periosteal reaction) benign features) with similar structure in the left side of the sacrum; probable bone island. Left hip is normally aligned. Right hip replacement causes moderate spray artifact. The right acetabular cup migrated with open base directed towards approximately 10 o''clock position. Subluxation of the right femoral implant in relation to the acetabular cup, best seen on bead cutter topogram. CT/Pelvis without IV Contrast IMPRESSION: 1. No demonstrated fracture. 2. Right hip replacement with acetabular cup migration and subluxation of femoral stem. No comparison studies available. Electronically Signed: Juice Alberto MD ([place]) at 17:05 EDT ,
--- NOTE | 2021-11-26 15:49 | CT_ITS ---
EXAM: CT RIGHT LOWER EXTREMITY WITHOUT INTRAVENOUS CONTRAST, FEMUR CLINICAL INDICATION: pain, recent hernia repair, swelling, on Xarelto TECHNIQUE: Helically acquired images were obtained of the right femur without intravenous contrast. 2-D reformats were performed by the technologist. This CT exam was performed using one or more of the following dose reduction techniques: automated exposure control, adjustment of the mA and/or kV according to patient size, and/or use of iterative reconstruction technique. This report was created using [employer] report generation technology. Coronal and sagittal reformatted images were created and reviewed. RADIATION DOSE: CTDIvol = 16.98 mGy, DLP = 1105.70 mGy-cm COMPARISON: None. FINDINGS: BONES/JOINTS: Right hip replacement causes moderate spray artifact. The right acetabular cup migrated with open base directed towards approximately 10 o''clock position. Subluxation of the right femoral implant in relation to the acetabular cup, best seen on chest pain coordinator topogram. No acute fracture. No sclerotic or destructive changes. SOFT TISSUES: Operative changes of the right inguinal region compatible with recent herniorrhaphy. No soft tissue swelling or gas. No radiopaque foreign body. Arterial atherosclerosis. CT/Extremity Lower without Contra IMPRESSION: Right hip replacement with acetabular cup migration and subluxation of femoral stem. No comparison studies available. Electronically Signed: Juice Alberto MD ([place]) at 17:07 EDT Reading Location ID and State: [facility] / [place] , Service support ,
--- NOTE | 2021-11-26 15:51 | EDS_ITS ---
HPI History of Present Illness Chief Complaint: Lower Extremity Injury Informant: patient Onset/Context/Timing Onset: Today Narrative Narrative: Patient presents secondary to right leg pain. He has had a partial right hip replacement on the right. He also had a right inguinal hernia repair approximately 10 days ago. He states occasionally when he moves his right hip he will hear a popping sensation. Today he stood from a chair and heard a loud pop. He was able to walk to the bathroom, but then noted increasing tightness in his right thigh. Patient does have a history of DVT/PE and is on Xarelto. He denies pain at this time. [facility] Medical History (Updated 11/26/21 @ 20:[address] Sylvie Loyola MD) Benign localized hyperplasia of prostate with urinary obstruction and lower urinary tract symptoms Colon polyp DVT (deep venous thrombosis) Dysthymic Erectile dysfunction Essential (primary) hypertension History of pulmonary embolism Hyperlipidemia Hypothyroidism Nonobstructive atherosclerosis of coronary artery Vitamin D deficiency Home Medications levothyroxine 100 mcg PO DAILY 09/12/15 [History Last Taken 09/18/15 03:30] metoprolol succinate 50 mg PO DAILY 09/12/15 [History Last Taken 08/07/18] atorvastatin 20 mg tablet 20 mg PO QHS 07/07/18 [History Last Taken Unknown] rivaroxaban 20 mg tablet 20 mg PO QPM tab 07/07/18 [History Last Taken 08/04/18] tadalafil 10 mg tablet 10 mg PO DAILY 07/07/18 [History Last Taken Unknown] ascorbic acid (vitamin C) 500 mg tablet 500 mg PO DAILY 07/08/18 [History Last Taken Unknown] cholecalciferol (vitamin D3) 50 mcg (2,000 unit) capsule 2,000 unit PO DAILY 07/08/18 [History Last Taken Unknown] aspirin 81 mg tablet,delayed release 81 mg PO DAILY 08/04/18 [History Last Taken 08/07/18] Lavon Bees PO 08/05/19 [History Last Taken Unknown] coenzyme Q10 100 mg capsule 100 mg PO DAILY 08/05/19 [History Last Taken Unknow n] polyethylene glycol 3350 17 gram/dose oral powder 17 g PO DAILY 08/05/19 [History Last Taken Unknown] lisinopril 10 mg tablet 10 mg PO DAILY #90 tab 09/03/21 [Rx Last Taken Unknown] Allergy/AdvReac Type Severity Reaction Status Date / Time lidocaine AdvReac Unknown Verified 09/12/20 15:42 procaine AdvReac Unknown Verified 09/12/20 15:42 Family History Father Myocardial infarction age 40 from [place] Mother Heart disease CHF Surgical History History of hip surgery History of left heart catheterization (08/07/18) History of myringotomy History of tonsillectomy Presence of inferior vena cava filter Social History Smoking Status: Never smoker ROS ROS ED Constitutional Constitutional ED: Denies chills or fever(s) Eyes Eyes: Denies change in vision ENT ENT ED: Denies sore throat Cardiovascular Cardiovascular: Denies chest pain Respiratory/Chest Respiratory/Chest: Denies cough or dyspnea Gastrointestinal Gastrointestinal: Denies abdominal pain, diarrhea, nausea or vomiting Genitourinary Genitourinary ED: Denies dysuria Musculoskeletal Musculoskeletal: Reports arthralgias; Denies back pain or neck pain Integumentary Denies rash Neurologic Neurologic: Denies headache(s) or weakness Allergic/Immunologic Allergic/Immunologic ED: Denies urticaria EXAM Physical Exam Const Vital Signs: 11/26/21 15:38 11/26/21 19:26 Temperature 97.6 F L 97.9 F Temperature Source Temporal Temporal Pulse Rate 68 74 Respiratory Rate 16 17 Blood Pressure 122/66 H 124/64 H Blood Pressure Mean 84 84 Pulse Ox 96 99 Oxygen Delivery Method Room Air Room Air Positive well nourished and well developed General Appearance ED: well developed HEENT Reports moist mucous membranes Eyes PERRL and EOMs intact bilaterally Neck supple Chest Wall inspection of chest normal and palpation of chest normal Resp normal respiratory effort and clear to auscultation bilaterally Cardio regular rate and regular rhythm GI normal to inspection, nondistended, normoactive bowel sounds and non-tender GI Narrative: Right inguinal hernia site clean with no significant ecchymosis. Palpation: soft Extremity Extremity Narrative: No reproducible tenderness with palpation of the right lower extremity. No significant edema or hematoma noted. Neuro oriented x3 Sensorium / Orientation: alert Psych mental status grossly normal Skin no rashes or lesions noted MDM MDM MDM Narrative Medical decision making narrative: With the patient currently being on a blood thinner and having recent hernia surgery, CT scan of the pelvis and right thigh was obtained as patient complained of tightness and pain down into his thigh. Radiography Diagnostic Testing: Clinical Impression(s) from Imaging Studies Lower Extremity CT 11/26/21 15:49 IMPRESSION: Right hip replacement with acetabular cup migration and subluxation of femoral stem. No comparison studies available. Electronically Signed: Juice Alberto MD ([place]) at 17:07 EDT , Pelvis CT 11/26/21 15:49 IMPRESSION: 1. No demonstrated fracture. 2. Right hip replacement with acetabular cup migration and subluxation of femoral stem. No comparison studies available. Electronically Signed: Juice Alberto MD ([place]) at 17:05 EDT , Hip/Pelvis X-Ray 11/26/21 18:20 IMPRESSION: Electronically Signed: Marc Buenrostro MD at 18:48 EDT , Treatment and Re-Evaluation Narrative: CT scan reveals acetabular cup migration with subluxation of the femoral stem. Hernia site is as expected for postop age. No fractures or dislocations. I spoke with Dr. Li, on-call for Ortho. He asked for pelvis and hip x-rays to better evaluate this. Per my interpretation no evidence of dislocation or fracture. Dr. Li reviewed the x-rays and called back. He thinks that this migration is chronic in nature. Patient may ambulate and can use a walker if needed. He did recommend follow-up with Dr. Benedict as this will likely need revised at some point. Patient was given Tylenol here and has been able to get up and ambulate with a walker. Return instructions have been given. Discharge Plan Triage Chief Complaint: Lower Extremity Injury ED Provider: Sylvie Loyola Dx/Rx/DC Orders Clinical Impression: Sprain of right hip Instructions: ED Hip Strain Prescriptions: No Action ascorbic acid (vitamin C) 500 mg tablet 500 mg PO DAILY RF: 0 cholecalciferol (vitamin D3) 2,000 unit capsule 2,000 unit PO DAILY RF: 0 Xarelto 20 mg tablet 20 mg PO QPM RF: 0 atorvastatin 20 mg tablet 20 mg PO QHS RF: 0 tadalafil [Cialis] 10 mg tablet 10 mg PO DAILY RF: 0 polyethylene glycol 3350 [Miralax] 17 gram/dose powder 17 g PO DAILY RF: 0 coenzyme Q10 [Co Q-10] 100 mg capsule 100 mg PO DAILY RF: 0 Lavon Bees PO RF: 0 metoprolol succinate 50 MG tablet 50 mg PO DAILY RF: 0 levothyroxine 100 MCG tablet 100 mcg PO DAILY RF: 0 aspirin [Adult Aspirin Regimen] 81 mg tablet,delayed release (DR/EC) 81 mg PO DAILY RF: 0 lisinopril 10 mg tablet 10 mg PO DAILY Qty: 90 RF: 3 Primary Care Provider: Radha Jolley Referrals: Radha Jolley DO [Primary Care Provider] - Bladimir Benedict MD [STAFF PHYSICIAN] - As soon as possible Disposition Disposition: Home, Self Care
--- NOTE | 2021-11-26 18:20 | RAD_ITS ---
EXAM: XR RIGHT HIP WITH PELVIS WHEN PERFORMED, 1 VIEW CLINICAL INDICATION: pain TECHNIQUE: Frontal view of the right hip with pelvis when performed. This report was created using [employer] report generation technology. COMPARISON: None. FINDINGS: BONES/JOINTS: Inferomedially rotated acetabular cup relative to the femoral head prosthesis. No acute or healing fracture or other malalignment. Moderate osteoarthrosis at the left with joint. No destructive or sclerotic lesions. Note that overlapping bowel shadows may however obscure fine detail. Sacroiliac joint is unremarkable. No widening of the pubic symphysis. SOFT TISSUES: No focal soft tissue abnormalities. No soft tissue swelling or gas. VASCULATURE: Phleboliths in the pelvis. RAD/HIP, UNI W/ Pelvis 2-3 Views IMPRESSION: Electronically Signed: Marc Buenrostro MD at 18:48 EDT ,
[2021-11-26] MEDS: Acetaminophen 500 MG Tablet 1000 MG PO (18:57)
[2021-11-26 19:26] VITALS: BP 124/64; PULSE 74; RESP 17; TEMP 36.6; O2SAT 99
== END 2021-11-26 20:22 | disposition home or self-care (01) ==
PROVIDERS: Emergency Provider Emergency Medicine; PCP Internal Medicine; Visit Provider Emergency Medicine
DX: S73.101A Unspecified sprain of right hip, initial encounter (principal); X58.XXXA Exposure to other specified factors, initial encounter; I25.10 Atherosclerotic heart disease of native coronary artery without angina pectoris; I10 Essential (primary) hypertension; E78.5 Hyperlipidemia, unspecified; E03.9 Hypothyroidism, unspecified; Z79.82 Long term (current) use of aspirin; Z79.01 Long term (current) use of anticoagulants; Z79.890 Hormone replacement therapy; Z79.899 Other long term (current) drug therapy; Z86.718 Personal history of other venous thrombosis and embolism; Z86.711 Personal history of pulmonary embolism; Z96.641 Presence of right artificial hip joint
CPT/HCPCS: 72192; 73502; 73700; 90471; 99285

== ENCOUNTER → 2022-03-01 | Outpatient (CLI) | payer MEDICARE, OTHER, SELFPAY ==
--- NOTE | 2022-03-01 15:27 | VDLE_ITS ---
Reason For Study: Pain RIGHT LEFT GSV is normal. GSV is normal. CFV is compressible, spontaneous, phasic, CFV is compressible, spontaneous, phasic, competent and demonstrates normal competent, and demonstrates normal augmentation. augmentation. FV is compressible, spontaneous, phasic, FV is compressible, spontaneous, phasic, competent and demonstrates normal competent and demonstrates normal augmentation. augmentation. POP V is compressible, spontaneous, phasic, POP V is compressible, spontaneous, phasic, competent and demonstrates normal competent and demonstrates normal augmentation. augmentation. T/P Trunk is compressible. T/P Trunk is compressible. RT PerV is compressible. PTV is compressible. Rt PTV distal is dilated and non compressible LT PerV is compressible. consistent with acute DVT. Lt GastrocV is partially compressible with Procedure bright intraluminal echoes consistent with This is a venous duplex using B-mode, color chronic DVT. flow and spectral Doppler. Exam performed in department. A preliminary report was called and/or faxed to Dr. Jolley. VL/Venous Duplex US - Ayan Extrem Interpretation Summary Acute deep venous thrombosis right distal posterior tibial vein Chronic deep venous thrombosis left gastrocnemius Patent, compressible bilateral great saphenous veins Ordering Physician: Rodolfo Rosales Referring Physician: Radha Jolley Performed By: Lizz Mijares, RDCS, RVT
== END | disposition home or self-care (01) ==
PROVIDERS: PCP Internal Medicine; Referring Provider Physician Assistant Surgical; Visit Provider Physician Assistant Surgical
DX: M79.661 Pain in right lower leg (principal); M79.662 Pain in left lower leg
CPT/HCPCS: 93970

== ENCOUNTER → 2022-08-14 | Outpatient (CLI) | payer MEDICARE, OTHER, SELFPAY ==
--- NOTE | 2022-08-14 12:55 | VDLE_ITS ---
Reason For Study: BLE Embolism RIGHT LEFT GSV is normal. GSV is normal. CFV is compressible, spontaneous, phasic, CFV is compressible, spontaneous, phasic, competent and demonstrates normal competent, and demonstrates normal augmentation. augmentation. FV is compressible, spontaneous, phasic, FV is compressible, spontaneous, phasic, competent and demonstrates normal competent and demonstrates normal augmentation. augmentation. POP V is compressible, spontaneous, phasic, T/P Trunk is compressible. competent and demonstrates normal PTV is compressible. augmentation. LT PerV is compressible. T/P Trunk is compressible. Lt PopV and Lt GastrocV are partially PTV is compressible. compressible with bright intraluminal echoes RT PerV is compressible. consistent with chronic DVT. Procedure This is a venous duplex using B-mode, color flow and spectral Doppler. Exam performed in department. A preliminary report was called and/or faxed to Dr. Jolley. VL/Venous Duplex US - Ayan Extrem Interpretation Summary Chronic deep vein thrombosis is noted in the left popliteal and gastrocnemius v eins Ordering Physician: Radha Jolley Referring Physician: Radha Jolley Performed By: Lizz Mijares, IBETH, RVT
== END | disposition home or self-care (01) ==
PROVIDERS: PCP Internal Medicine; Referring Provider Internal Medicine; Visit Provider Internal Medicine
DX: I82.441 Acute embolism and thrombosis of right tibial vein (principal); I82.403 Acute embolism and thrombosis of unspecified deep veins of lower extremity, bilateral
CPT/HCPCS: 93970

== ENCOUNTER → 2022-12-06 | Outpatient (CLI) | payer MEDICARE, OTHER, SELFPAY ==
--- NOTE | 2022-12-06 08:47 | CDU_ITS ---
Reason For Study: Left Carotid Stenosis Rt. Velocities/BP Lt. Velocities/BP Prox CCA 106.5/22.5 cm/sec. Prox CCA 133.7/24.9 cm/sec. Mid CCA 99.2/20.6 cm/sec. Mid CCA 118.0/23.0 cm/sec. Dist CCA 105.2/15.7 cm/sec. Dist CCA 114.3/24.8 cm/sec. Prox ICA 85.1/19.4 cm/sec. Prox ICA 92.4/19.4 cm/sec. Mid ICA 86.9/21.2 cm/sec. Mid ICA 71.5/22.6 cm/sec. Dist ICA 90.6/24.8 cm/sec. Dist ICA 72.1/20.4 cm/sec. Rt. ICA/CCA = 0.9. Lt. ICA/CCA = 0.8. Prox ECA 164.1/21.5 cm/sec. Prox ECA 164.8/22.3 cm/sec. Rt. Vert. 47.9/9.5 cm/sec. Lt. Vert. 50.1/12.7 cm/sec. Right Extracranial There is intimal thickening but no significant atherosclerotic plaque noted in the right common carotid artery. There is heterogeneous, irregular atherosclerotic plaque noted in the right internal carotid artery. There is heterogeneous, irregular atherosclerotic plaque noted in the right external carotid artery. Antegrade flow is noted in the right vertebral artery. Left Extracranial There is intimal thickening but no significant atherosclerotic plaque noted in the left common carotid artery. There is heterogeneous, irregular atherosclerotic plaque noted in the left internal carotid artery. There is heterogeneous, irregular atherosclerotic plaque noted in the left external carotid artery. Antegrade flow is noted in the left vertebral artery. Procedure Carotid Duplex [id number]. This is a Carotid Duplex examination using B-mode, color flow and specral Doppler. The exam was diagnostic. Exam performed in department. VL/Carotid Duplex Ultrasound Interpretation Summary Mild (<50%) stenosis right extracranial internal carotid. Mild (<50%) stenosis left extracranial internal carotid. Patent and antegrade vertebrals bilaterally Ordering Physician: Radha Jolley Referring Physician: Radha Jolley Performed By: Cole Stevens RVT
== END | disposition home or self-care (01) ==
LOC: CVS 08:46
PROVIDERS: PCP Internal Medicine; Referring Provider Internal Medicine; Visit Provider Internal Medicine
DX: I65.22 Occlusion and stenosis of left carotid artery (principal)
CPT/HCPCS: 93880

== ENCOUNTER → 2024-01-06 | Outpatient (CLI) | payer MEDICARE, OTHER, SELFPAY ==
--- NOTE | 2024-01-06 08:52 | CDU_ITS ---
Reason For Study: CAROTID STENOSIS, LEFT Rt. Velocities/BP Lt. Velocities/BP Prox CCA 108.0/16.8 cm/sec. Prox CCA 172.8/26.7 cm/sec. Mid CCA 131.8/22.5 cm/sec. Mid CCA 149.0/23.0 cm/sec. Dist CCA 119.5/17.6 cm/sec. Dist CCA 119.8/23.0 cm/sec. Prox ICA 143.6/19.4 cm/sec. Prox ICA 150.8/18.7 cm/sec. Mid ICA 124.0/25.4 cm/sec. Mid ICA 195.9/30.1 cm/sec. Dist ICA 139.9/32.1 cm/sec. Dist ICA 127.1/26.7 cm/sec. Rt. ICA/CCA = 143.6/131.8=1.1. Lt. ICA/CCA = 195.9/149.0=1.3. Prox ECA 168.6/20.6 cm/sec. Prox ECA 203.3/18.9 cm/sec. Rt. Vert. 38.6/9.4 cm/sec. Lt. Vert. 55.6/15.0 cm/sec. Right Extracranial There is intimal thickening but no significant atherosclerotic plaque noted in the right common carotid artery. There is heterogeneous, irregular atherosclerotic plaque noted in the right internal carotid artery. There is heterogeneous, irregular atherosclerotic plaque noted in the right external carotid artery. Antegrade flow is noted in the right vertebral artery. Left Extracranial There is intimal thickening but no significant atherosclerotic plaque noted in the left common carotid artery. There is heterogeneous, irregular atherosclerotic plaque noted in the left internal carotid artery. There is heterogeneous, irregular atherosclerotic plaque noted in the left external carotid artery. Antegrade flow is noted in the left vertebral artery. Procedure Carotid Duplex [id number]. This is a Carotid Duplex examination using B-mode, color flow and specral Doppler. Exam performed in department. PT states he did not take his meds prior to test. VL/Carotid Duplex Ultrasound Interpretation Summary Moderate (50-69%) stenosis right extracranial internal carotid. Moderate (50-69%) stenosis left extracranial internal carotid. Patent and antegrade vertebrals bilaterally. Ordering Physician: Radha Jolley Referring Physician: Radha Jolley Performed By: Allyson Grace, IBETH, RVT
== END | disposition home or self-care (01) ==
PROVIDERS: PCP Internal Medicine; Referring Provider Internal Medicine; Visit Provider Internal Medicine
DX: I65.22 Occlusion and stenosis of left carotid artery (principal)
CPT/HCPCS: 93880

== ENCOUNTER → 2024-01-28 | Outpatient (CLI) | payer MEDICARE, OTHER, SELFPAY ==
--- NOTE | 2024-01-28 07:36 | CT_ITS ---
STUDY: CTA NECK WITH CONTRAST REASON FOR EXAM: Male, 73 years old. bilateral carotid stenosis -- bilateral carotid stenosis RADIATION DOSAGE (If Supplied By Facility): CTDIvol = ( 20.97 ) mGy, DLP = ( 608.18 ) mGycm TECHNIQUE: CT angiography with multi-detector data acquisition was performed from the aortic arch to the skull base following intravenous administration of IV 100mL [id number]-[id number]. MIP images were reconstructed from the axial data set. Post-processing of the angiographic images was performed, with multiplanar reformation and 3D reconstruction. Individualized dose optimization techniques were used for this CT. COMPARISON: Carotid ultrasound 01/06/2024 FINDINGS: AORTIC ARCH: Normal visualized aortic arch. Normal origins of the brachiocephalic, left common carotid, and left subclavian arteries. RIGHT CAROTID ARTERIES: Normal right common carotid artery (CCA). There is mild atherosclerotic plaque formation with minimal narrowing of the right carotid bulb. Normal origin of the right internal carotid (ICA) artery without a hemodynamically significant stenosis. Normal visualized cervical portion of the right internal carotid artery. There is mild atherosclerotic plaque formation of the origin of the right external carotid artery with less than 50% cross sectional diameter stenosis. LEFT CAROTID ARTERIES: Normal left common carotid artery (CCA). There is moderate atherosclerotic plaque formation with moderate narrowing of the carotid bulb. There is mild atherosclerotic plaque formation of the origin of the left internal carotid artery with less than 50% cross sectional diameter stenosis. Normal visualized cervical portion of the left internal carotid artery. Normal origin of the left external carotid artery (ECA). VERTEBRAL ARTERIES: Normal bilateral vertebral arteries. CT/CTA Neck W/WO Contrast IMPRESSION: 1. Mild amount calcified plaque in the right carotid bifurcation with no measurable stenosis. 2. Mild (40%) (left carotid stenosis. 3. Patent vertebral arteries bilaterally. Electronically Signed: Gustavo Durant MD at 13:02 EDT ,
[2024-01-28 08:04] LABS: CREATININE FINGERSTICK < 1.0 mg/dL (0.70-1.30); EGFR FINGERSTICK > 60.0000 mL/min (>60)
== END | disposition home or self-care (01) ==
PROVIDERS: PCP Internal Medicine; Referring Provider Internal Medicine; Visit Provider Internal Medicine
DX: I65.23 Occlusion and stenosis of bilateral carotid arteries (principal)
CPT/HCPCS: 70498; Q9967

== ENCOUNTER → 2025-03-16 | Outpatient (CLI) | payer MEDICARE, OTHER, SELFPAY ==
[2025-03-16 12:56] LABS: Ferritin 74 ng/mL (37-417); Iron 119 ug/dL (65-175); Iron Binding Capacity,Total 298 ug/dL (250-450); Iron Binding Capacity,Unsat 179 ug/dL (228-428)
[2025-03-16 13:10] LABS: Hematocrit 40.2 % (40-54); Hemoglobin 13.2 g/dL (13.0-16.5); Immature Granulocytes Count 0.090 X10^3/uL (0.0-0.0); Mean Corp Hgb Conc 32.8 g/dL (32-36); Mean Corpuscular Volume 88.9 fL (80-94); Mean Platelet Vol. 10.4 fl (6.2-12.0); NRBC Flagged by Analyzer 0 % (0-5); Platelet Count 300 K/mm3 (150-450); RBC Distribution Width CV 13.5 % (11.6-14.6); RBC Distribution Width SD 44.2 fl (35.1-43.9); Red Blood Count 4.52 M/mm3 (4.6-6.2); White Blood Count 7.8 K/mm3 (4.4-11.0)
== END | disposition home or self-care (01) ==
PROVIDERS: PCP Internal Medicine; Referring Provider Internal Medicine; Visit Provider Internal Medicine
DX: D64.9 Anemia, unspecified (principal)
CPT/HCPCS: 36415; 82728; 83540; 83550; 85025

== ENCOUNTER → 2025-04-04 | Outpatient (CLI) | payer MEDICARE, OTHER, SELFPAY ==
[2025-04-04 13:02] LABS: Potassium 5.1 mmol/L (3.3-5.1)
== END | disposition home or self-care (01) ==
PROVIDERS: PCP Internal Medicine; Referring Provider Internal Medicine; Visit Provider Internal Medicine
DX: E87.5 Hyperkalemia (principal); E03.9 Hypothyroidism, unspecified; R19.5 Other fecal abnormalities
CPT/HCPCS: 36415; 84132; 84443

== ENCOUNTER → 2025-04-15 | Outpatient (CLI) | payer MEDICARE, OTHER, SELFPAY ==
--- NOTE | 2025-04-15 09:42 | CDU_ITS ---
Reason For Study Reason For Study: Carotid stenosis Rt. Velocities/BP Lt. Velocities/BP Prox CCA 74.0/12.4 cm/sec. Prox CCA 133.9/15.2 cm/sec. Mid CCA 130.2/20.6 cm/sec. Mid CCA 115.6/17.0 cm/sec. Dist CCA 77.7/16.3 cm/sec. Dist CCA 97.4/16.3 cm/sec. Prox ICA 79.0/17.6 cm/sec. Prox ICA 143.3/13.8 cm/sec. Mid ICA 68.3/14.7 cm/sec. Mid ICA 114.8/22.6 cm/sec. Dist ICA 66.7/18.8 cm/sec. Dist ICA 72.8/17.6 cm/sec. Rt. ICA/CCA = 0.6. Lt. ICA/CCA = 1.2. Prox ECA 112.0/9.7 cm/sec. Prox ECA 149.9/5.0 cm/sec. Rt. Vert. 44.6/10.2 cm/sec. Lt. Vert. 42.1/9.0 cm/sec. Right Extracranial There is homogeneous, smooth atherosclerotic plaque noted in the right common carotid artery. There is heterogeneous, irregular atherosclerotic plaque noted in the right internal carotid artery. There is heterogeneous, irregular atherosclerotic plaque noted in the right external carotid artery. Antegrade flow is noted in the right vertebral artery. Left Extracranial There is intimal thickening but no significant atherosclerotic plaque noted in the left common carotid artery. There is heterogeneous, irregular atherosclerotic plaque noted in the left internal carotid artery. There is heterogeneous, irregular atherosclerotic plaque noted in the left external carotid artery. Antegrade flow is noted in the left vertebral artery. Procedure Carotid Duplex [id number]. This is a Carotid Duplex examination using B-mode, color flow and specral Doppler. Exam performed in department. VL/Carotid Duplex Ultrasound Interpretation Summary Mild (<50%) stenosis right extracranial internal carotid. Moderate (50-69%) stenosis left extracranial internal carotid. Patent and antegrade vertebrals bilaterally. Ordering Physician: Radha Jolley Referring Physician: Radha Jolley Performed By: Laly Jones RVT
== END | disposition home or self-care (01) ==
LOC: CVS 09:42
PROVIDERS: PCP Internal Medicine; Referring Provider Internal Medicine; Visit Provider Internal Medicine
DX: I65.23 Occlusion and stenosis of bilateral carotid arteries (principal)
CPT/HCPCS: 93880

== ENCOUNTER → 2025-05-17 | Outpatient (CLI) | payer MEDICARE, OTHER, SELFPAY ==
[2025-05-17 09:52] LABS: Hematocrit 40.5 % (40-54); Hemoglobin 13.5 g/dL (13.0-16.5); Immature Granulocytes Count 0.050 X10^3/uL (0.0-0.0); Mean Corp Hgb Conc 33.3 g/dL (32-36); Mean Corpuscular Volume 87.5 fL (80-94); Mean Platelet Vol. 9.8 fl (6.2-12.0); NRBC Flagged by Analyzer 0 % (0-5); Platelet Count 291 K/mm3 (150-450); RBC Distribution Width CV 13.0 % (11.6-14.6); RBC Distribution Width SD 41.0 fl (35.1-43.9); Red Blood Count 4.63 M/mm3 (4.6-6.2); White Blood Count 9.7 K/mm3 (4.4-11.0)
[2025-05-17 10:41] LABS: AST(SGOT) 23 U/L (<=37); Alanine Aminotransfer ALT/SGPT 14 U/L (<=46); Albumin, Serum 4.1 g/dL (3.4-4.8); Alkaline Phosphatase 93 U/L (40-129); Anion Gap 9 (5-15); BUN 17 mg/dL (4-19); BUN/Creat Ratio 20.5 RATIO (10-20); Calcium,Total 9.2 mg/dL (7.6-11.0); Carbon Dioxide 27.0 mmol/L (21.0-32.0); Chloride 102 mmol/L (98-108); Cholesterol 160 mg/dL (<=200); Ferritin 106 ng/mL (37-417); Globulin 3.6 g/dL (2.2-4.2); Glucose 94 mg/dL (70-99); Low Density Lipoprotein Calc. 90 mg/dL; Potassium 4.5 mmol/L (3.3-5.1); Triglycerides 44 mg/dL; Very Low Density Lipoprotein 9 mg/dL (5-40); Vitamin D,25 Hydroxy 87.8 ng/mL (30-100); cholesterol:hdl ratio screen 2.67
[2025-05-17 10:58] LABS: Iron 101 ug/dL (65-175); Iron Binding Capacity,Total 288 ug/dL (250-450); Iron Binding Capacity,Unsat 187 ug/dL (228-428)
== END | disposition home or self-care (01) ==
LOC: MTLAB 08:54
PROVIDERS: PCP Internal Medicine; Referring Provider Internal Medicine; Visit Provider Internal Medicine
DX: D64.9 Anemia, unspecified (principal); E03.9 Hypothyroidism, unspecified; E55.9 Vitamin D deficiency, unspecified; E78.00 Pure hypercholesterolemia, unspecified; L50.9 Urticaria, unspecified; R19.5 Other fecal abnormalities
CPT/HCPCS: 36415; 80053; 80061; 82306; 82728; 83540; 83550; 84443; 85025